=== PATIENT | female | born 1935 | race Hispanic/Latino ===

== ENCOUNTER 2017-09-25 11:15 | Inpatient (IN) | payer MEDICARE, OTHER ==
[2017-09-25 11:15] VITALS: PULSE 121
--- NOTE | 2017-09-25 12:16 | ED PDOC ---
HPI: General Adult Time Seen by Provider: 09/25/17 11:37 Chief Complaint (Nursing): Cough, Cold, Congestion Chief Complaint (Provider): shortness of breath with cough History Per: Patient History/Exam Limitations: no limitations Onset/Duration Of Symptoms: Days (7 days ago) Current Symptoms Are (Timing): Still Present Additional Complaint(s): 81 yo female with a history of having a pacemaker and Diabetes, presents to the ED complaining of shortness of breath, cough, and multiple episodes on-going, watery diarrhea, onset of 7 days ago. Patient also reports of worsened shortness of breath with exertion, decreased oral intake, feeling thirsty, but denies chest pain, fever, or abdominal pain. Past Medical History Reviewed: Historical Data Vital Signs: Last Vital Signs Temp 99.1 F 09/25/17 11:50 Pulse 61 09/25/17 11:50 Resp 23 09/25/17 11:50 BP 160/75 H 09/25/17 11:50 Pulse Ox 94 L 09/25/17 15:01 - Medical History PMH: Cardia Arrhythmia, Diabetes, HTN, Hypercholesterolemia - Surgical History Surgical History: Pacemaker Other surgeries: right hip and left knee surgery - Family History Family History: States: Unknown Family Hx - Social History Current smoker - smoking cessation education provided: No Ex-Smoker (has not smoked in the last 12 months): No Alcohol: None Drugs: Denies - Home Medications Home Medications: Ambulatory Orders Medication Instructions Recorded Atorvastatin [Lipitor] 10 mg PO DAILY 05/31/14 Carvedilol [Carvedilol] 12.5 mg PO BID 05/31/14 Ergocalciferol (Vitamin D2) 1 tab PO DAILY 05/31/14 [Ergocalciferol] Furosemide [Lasix] 20 mg PO DAILY 05/31/14 Sertraline Hydrochloride 25 mg PO DAILY 05/31/14 [Sertraline Hydrochloride] Sitagliptin Phosphate [Januvia] 25 mg PO DAILY 05/31/14 Warfarin Sodium 6 mg PO DAILY 05/31/14 Multivit-Min/FA/Lycopen/Lutein 1 tab PO DAILY 10/17/16 [Centrum Silver Tablet] Mv-Min/FA/Vit K/Lycop/Lut/Zeax 1 tab PO DAILY 10/17/16 [Ocuvite Eye + Multi Tablet] Carvedilol [Coreg] 25 mg PO BID #60 tab 10/21/16 Ciprofloxacin [Cipro] 500 mg PO DAILY #2 tab 10/21/16 Furosemide [Lasix] 40 mg PO DAILY tab 10/21/16 Insulin Detemir [Levemir] 22 units SC HS vial 10/21/16 - Allergies Allergies/Adverse Reactions: Allergies Allergy/AdvReac Type Severity Reaction Status Date / Time No Known Allergies Allergy Verified 10/17/16 23:12 Review of Systems Constitutional: Positive for: Chills, Weakness (fatigue), Other (decreased oral intake, feeling thristy). Negative for: Fever Cardiovascular: Negative for: Chest Pain Respiratory: Positive for: Cough, Shortness of Breath, SOB with Exertion Gastrointestinal: Positive for: Diarrhea. Negative for: Nausea, Vomiting, Abdominal Pain Physical Exam - Reviewed Nursing Documentation Reviewed: Yes Vital Signs Reviewed: Yes - Physical Exam Appears: Positive for: Non-toxic, No Acute Distress. Negative for: Well (obese) Head Exam: Positive for: ATRAUMATIC, NORMAL INSPECTION, NORMOCEPHALIC Skin: Positive for: Normal Color, Warm, DRY Eye Exam: Positive for: EOMI, Normal appearance, PERRL ENT: Positive for: Other (mucous membranes are pink and moderrately dry) Neck: Positive for: Normal Cardiovascular/Chest: Positive for: Regular Rate, Rhythm. Negative for: Murmur Respiratory: Positive for: Decreased Breath Sounds (bilateral bases). Negative for: Rales Gastrointestinal/Abdominal: Positive for: Normal Exam, Soft. Negative for: Tenderness Back: Positive for: Normal Inspection Extremity: Positive for: Normal ROM. Negative for: Pedal Edema, Deformity, Other (peripheral edema) Neurologic/Psych: Positive for: Alert, Oriented. Negative for: Motor/Sensory Deficits - Laboratory Results Result Diagrams: 09/25/17 12:00 09/25/17 12:00 - ECG O2 Sat by Pulse Oximetry: 94 (RA) Pulse Ox Interpretation: Normal Medical Decision Making Medical Decision Making: Time: --11:45 Impression: --Diarrhea and shortness of breath with cough, differential: infectious process Plan: --Labs --Troponin I --Chest Portable X-ray --Blood culture --Iv Insertion --O2 via nasal cannula Reassess --15:50 FINDINGS: Chest X-ray LUNGS: No active pulmonary disease. PLEURA: No significant pleural effusion identified, no pneumothorax apparent. CARDIOVASCULAR: Normal. OSSEOUS STRUCTURES: No significant abnormalities. VISUALIZED UPPER ABDOMEN: Normal. OTHER FINDINGS: None. IMPRESSION: No active disease. Scribe Attestation: Documented by Erich Wooten acting as a scribe for Yuval Rousseau DO. Provider Attestation: All medical record entries made by the Scribe were at my direction and personally dictated by me. I have reviewed the chart and agree that the record accurately reflects my personal performance of the history, physical exam, medical decision making, and the department course for this patient. I have also personally directed, reviewed, and agree with the discharge instructions and disposition. Disposition - Clinical Impression Clinical Impression: CHF (congestive heart failure), Diarrhea - Patient ED Disposition Is Patient to be Admitted: Yes - Disposition Disposition Time: 15:00 Condition: STABLE
[2017-09-25 13:32] LABS: BASO % 0.3 % (0.0-2.0); HEMOGLOBIN 11.6 g/dL (12.0-16.0); LYMPH # 0.7 K/uL (1.0-4.3); LYMPH % 15.3 % (20.0-40.0); MEAN CORPUSCULAR HEMOGLOBIN 30.1 pg (27.0-31.0); MEAN CORPUSCULAR HGB CONC 32.7 g/dL (33.0-37.0); MEAN PLATELET VOLUME 9.2 fl (7.2-11.7); MONO # 0.7 K/uL (0.0-0.8); MONO % 14.3 % (0.0-10.0); NEUT # 3.2 K/uL (1.8-7.0); NEUT % 69.1 % (50.0-75.0); NRBC % 0.2 % (0.0-0.0); RBC 3.84 Mil/uL (3.80-5.20); WHITE BLOOD COUNT 4.6 K/uL (4.8-10.8)
[2017-09-25 13:45] LABS: ALB/GLOB RATIO 1.2 (1.0-2.1); ALBUMIN 3.8 g/dL (3.5-5.0); CALCIUM 8.7 mg/dL (8.4-10.2)
[2017-09-25 13:56] LABS: TROPONIN I 0.021 ng/mL (0.00-0.120)
[2017-09-25] MEDS ORDERED: Sodium Chloride 0.9% 250 ML IV SCH (14:00)
[2017-09-25 14:39] LABS: ABG ALLEN TEST YES; ARTERIAL BLOOD GAS HEMOGLOBIN 11.5 g/dL (11.7-17.4); ARTERIAL BLOOD GAS O2 CAPACITY 15.3 mL/dL (16-24); ARTERIAL BLOOD GAS O2 CONTENT 14.7 ML/dL (15-23); ARTERIAL BLOOD GAS O2 SAT 95.9 % (95-98); ARTERIAL BLOOD GAS PCO2 51 mm/Hg (35-45); ARTERIAL BLOOD GAS PH 7.38 (7.35-7.45); ARTERIAL BLOOD GAS PO2 50 mm/Hg (80-100); ARTERIAL BLOOD GAS TCO2 31.8 mmol/L (22-28)
[2017-09-25] MEDS ORDERED: Nitroglycerin 2% Ointment Foilpak UD TOP STA (14:58)
--- NOTE | 2017-09-25 15:52 | RAD ---
HISTORY: sob COMPARISON: No prior. FINDINGS: LUNGS: No active pulmonary disease. PLEURA: No significant pleural effusion identified, no pneumothorax apparent. CARDIOVASCULAR: Normal. OSSEOUS STRUCTURES: No significant abnormalities. VISUALIZED UPPER ABDOMEN: Normal. OTHER FINDINGS: None. IMPRESSION: No active disease.
[2017-09-25] MEDS ORDERED: Glucagon Recombinant 1 mg Inj IM PRN (15:55)
[2017-09-25] MEDS ORDERED: Dextrose 50% SYRINGE Inj (50 ml) IV PRN (15:55)
--- NOTE | 2017-09-25 15:58 | CP.PCM.HP ---
History of Present Illness - History of Present Illness History of Present Illness: 81 y/o F with PMHx of Systolic CHF with LVEF 20-25 % ( on last Echo done on 10/20), Pacemaker ( placed 10 years ago), Diabetes, HTn, A fib on coumadin, CKD presents to ED c/o body aches, headaches, dry cough, and sometimes wet cough associated with white sputum production, nasal congestion, runny nose, chills, watery eyes since last (3 days ago). Patient reports an unchanged baseline SOB. She gets SOB when walking few steps, however she does not walk to much because her chronic musculoskeletal conditions and surgeries. Denies Fevers , hemoptisis, frothy sputum, chest pain, increase in baseline SOB. Also patient is complaining of a lot of episodes of watery nonbloody diarrheas for 2 days (started on Tuesday), associated with diffuse abd pain for one day ( Tuesday), sha has had 3 episodes of diarrheas today. Denies N/V, abdominal pain at this eval, blood in stools, or urinary symptoms. History taken from patient, her son at bedside, and old records in [facility]. As per patient she is very adherent to medical treatment. She states that she took all her morning meds including coumadin. PMD: Dr. Marte. Enamel Dipper: Dr. Farias PMHx: as HPI Pacemaker last checked in September/2017 as per patient and family. Medications: coumadin 6mg, carvedilol 25 mg BID, atorvastatin 10mg, lasix 40 mg , januvia 25mg, Levemir 22u, zoloft 50 mg, ergocalciferol 50,000 unit weekly, Allergies : none Surgical hx: pacemaker placement 10 years ago, Right hip replacement, left knee replacement Social: denies smoking, EtOH, drugs. lives alone, uses walker to ambulate, and needs assistance. ED course: NS 250 ml/hr once, Lasix 40 mg IV once, Nitro 2% TOPonce Labs, ABG, CXR Present on Admission - Present on Admission Any Indicators Present on Admission: No History of DVT/PE: No History of Uncontrolled Diabetes: No Urinary Catheter: No Decubitus Ulcer Present: No Review of Systems - Review of Systems All systems: reviewed and no additional remarkable complaints except (HPI) Past Patient History - Past Social History Alcohol: None Drugs: Denies - CARDIAC Hx Cardia Arrhythmia: Yes Hx Hypercholesterolemia: Yes Hx Hypertension: Yes Hx Pacemaker: Yes - ENDOCRINE/METABOLIC Hx Endocrine Disorders: Yes Hx Diabetes Mellitus Type 2: Yes - MUSCULOSKELETAL/RHEUMATOLOGICAL Hx Falls: No - PSYCHIATRIC Hx Substance Use: No - SURGICAL HISTORY Hx Joint Replacement: Yes (right hip and left knee) - ANESTHESIA Hx Anesthesia: Yes Hx Anesthesia Reactions: No Hx Malignant Hyperthermia: No Meds Allergies/Adverse Reactions: Allergies Allergy/AdvReac Type Severity Reaction Status Date / Time No Known Allergies Allergy Verified 10/17/16 23:12 Physical Exam - Constitutional Appears: No Acute Distress - Eye Exam Eye Exam: Normal appearance Pupil Exam: PERRL - ENT Exam ENT Exam: Mucous Membranes Moist - Respiratory Exam Respiratory Exam: Wheezes (diffuse and bilateral), NORMAL BREATHING PATTERN. absent: Rales, Rhonchi - Cardiovascular Exam Cardiovascular Exam: REGULAR RHYTHM, +S1, +S2 - GI/Abdominal Exam GI & Abdominal Exam: Normal Bowel Sounds, Soft. absent: Distended, Guarding, Rebound, Rigid, Tenderness Additional comments: Obese abdomen - Extremities Exam Extremities exam: Positive for: normal inspection. Negative for: calf tenderness, pedal edema - Neurological Exam Neurological exam: Alert, Oriented x3 - Skin Skin Exam: Dry, Intact, Normal Color Results - Vital Signs Recent Vital Signs: Last Vital Signs Temp 99.1 F 09/25/17 11:50 Pulse 61 09/25/17 11:50 Resp 23 09/25/17 11:50 BP 160/75 H 09/25/17 11:50 Pulse Ox 94 L 09/25/17 15:01 - Labs Result Diagrams: 09/25/17 12:00 09/25/17 12:00 Labs: Laboratory Results - last 24 hr 09/25/17 09/25/17 09/25/17 12:00 12:00 12:00 WBC 4.6 L RBC 3.84 Hgb 11.6 L Hct 35.3 MCV 92.0 MCH 30.1 MCHC 32.7 L RDW 14.0 Plt Count 139 MPV 9.2 Neut % (Auto) 69.1 Lymph % (Auto) 15.3 L [place] % (Auto) 14.3 H Eos % (Auto) 1.0 Baso % (Auto) 0.3 Neut # (Auto) 3.2 Lymph # (Auto) 0.7 L [place] # (Auto) 0.7 Eos # (Auto) 0.0 Baso # (Auto) 0.0 pCO2 pO2 HCO3 ABG pH ABG Total CO2 ABG O2 Saturation ABG O2 Content ABG Base Excess ABG Hemoglobin ABG Carboxyhemoglobin POC ABG HHb (Measured) ABG Methemoglobin ABG O2 Capacity Ammon Test A-a O2 Difference Hgb O2 Saturation FiO2 Blood Gas Comments Crit Value Read Back Sodium 137 Potassium 4.7 Chloride 95 L Carbon Dioxide 29 Anion Gap 18 BUN 42 H Creatinine 1.6 H Est GFR ( Amer) 37 Est GFR (Non-Af Amer) 31 POC Glucose (mg/dL) 219 H Random Glucose 217 H Calcium 8.7 Total Bilirubin 0.5 AST 28 ALT 29 Alkaline Phosphatase 65 Troponin I 0.0210 NT-Pro-B Natriuret Pep 2490 H Total Protein 7.0 Albumin 3.8 Globulin 3.2 Albumin/Globulin Ratio 1.2 09/25/17 14:31 WBC RBC Hgb Hct MCV MCH MCHC RDW Plt Count MPV Neut % (Auto) Lymph % (Auto) [place] % (Auto) Eos % (Auto) Baso % (Auto) Neut # (Auto) Lymph # (Auto) [place] # (Auto) Eos # (Auto) Baso # (Auto) pCO2 51 H pO2 50 L HCO3 28.0 ABG pH 7.38 ABG Total CO2 31.8 H ABG O2 Saturation 95.9 ABG O2 Content 14.7 L ABG Base Excess 4.1 H ABG Hemoglobin 11.5 L ABG Carboxyhemoglobin 2.7 H POC ABG HHb (Measured) 3.9 ABG Methemoglobin 2.5 ABG O2 Capacity 15.3 L Ammon Test Yes A-a O2 Difference 100.0 Hgb O2 Saturation 90.9 L FiO2 30.0 Blood Gas Comments 21% pt was on room air not 30% Crit Value Read Back N Sodium Potassium Chloride Carbon Dioxide Anion Gap BUN Creatinine Est GFR ( Amer) Est GFR (Non-Af Amer) POC Glucose (mg/dL) Random Glucose Calcium Total Bilirubin AST ALT Alkaline Phosphatase Troponin I NT-Pro-B Natriuret Pep Total Protein Albumin Globulin Albumin/Globulin Ratio Assessment & Plan - Assessment and Plan (Free Text) Assessment: 81 y/o F with PMHx of Systolic CHF , Pacemaker, Diabetes, HTn, A fib presenting with SOB and Diarrheas. Plan: Short of Breath -Telemetry unit -Possible 2/2 acute URI, but Cardiac etiology can not be r/o because patient has a significant cardiac history -Diffuse wheezing at PExam -Cont Cardiac monitoring -NC at 2 LPM -Pulse oxymeter monitoring -measure weight daily -I & O daily -ABG: mild elevated PCO2/51, normal PH, normal HCO3 -CXR on admission was unremarkable. Official report showed no active disease -Give Duoneb once, and re-assess -s/p Lasix 40 mg IV once, Nitro 2 % TOP once Upper Respiratory infection -Acute,x 3 days, afebrile -most likely viral etiology -no evidence of SIRS -no needed antibiotics at this time -will test for Influenza A/B, if positive start tamiflu renal dose -Mucinex DM -Acetaminophen 650 mg PO PRN ( normal AST/ALT on admission) -f/u respiratory status Watery Diarrheas -acute, 2 days -afebrile, nonbloody -most likely viral etiology -no recent antibiotic treatment -fecal leukocytes -will consider C-diff ( no fevers, no abd pain now, no leukocytosis) -f/u for resolution, improvement or worsening Systolic CHF -does not seem to be in exacerbation -no evidence of significant pleural effusion -c/w Home dose of lasix. Furosemide 40 mg PO QD -c/w Carvedilol 25 mg PO BID -heart healthy diet -pro-BNP on admission 2490 ( could be pt's baseline) -measure weight daily -I & O daily -Echo on 10/20/16 reported as severely reduced LVEF 20-25 %, global hypokinesis -call Cardiology if needed -Dr. Ashish Farias is patient Enamel Dipper H/O A Fib -Paced rhythm -Controlled -c/w Carvedilol -On Coumadin 6 mg as per patient and family report -Also as per old records takes coumadin 6 mg /Daily -F/u INR done in ER -Resume Coumadin if INR is in therapeutic levels for afib, 2-3 -repeat INR before next dose Diabetes Mellitus type 2 -c/w Accuchek -resume home Januvia 25 mg QD ( renal adjusted) -resume Levemir 22 units at bedtime ( as per pt report and old records) -insulin Lispro before meals per protocol. Low dose for now -Hypoglycemic protocol -Diabetic diet CKD stage 3 -On ergocalciferol 50,000 unit weekly -normal potassium, stable BUN/Cr -f/u BMP in AM Diet -heart healthy and diabetic DVT prophylaxis -On anticoagulant Coumadin - Date & Time Date: 09/25/17 Time: 16:00
[2017-09-25] MEDS ORDERED: Nitroglycerin 2% Ointment Foilpak UD TOP ONE (16:39)
[2017-09-25] MEDS ORDERED: Albuterol-Ipratrop 3 mg / 0.5 (3 ml) UD INH ONE (16:58)
[2017-09-25 17:00] LABS: PROTHROMBIN TIME 23.9 Seconds (9.8-13.1)
[2017-09-25 17:01] LABS: INR 2.1 (0.9-1.2); PARTIAL THROMBOPLASTIN TIME 43.1 Seconds (25.6-37.1)
[2017-09-25] MEDS: Oseltamivir 6 MG/ML PO SCH (17:36)
[2017-09-25] MEDS ORDERED: Albuterol-Ipratrop 3 mg / 0.5 (3 ml) UD ONE (17:39)
[2017-09-25] MEDS: guaiFENesin-DM 600-30 mg ER Tab PO SCH (18:17)
[2017-09-25 18:58] LABS: URINE APPEARANCE TURBID (CLEAR); URINE BILIRUBIN NEGATIVE (NEGATIVE); URINE BLOOD NEGATIVE (NEGATIVE); URINE COLOR YELLOW (YELLOW); URINE GLUCOSE (UA) NEG (Normal); URINE LEUKOCYTE ESTERASE MOD Leu/uL (Negative); URINE NITRATE NEGATIVE (NEGATIVE); URINE PROTEIN 30 mg/dL (NEGATIVE); URINE UROBILINOGEN 0.2-1.0 mg/dL (0.2-1.0)
[2017-09-25] MEDS: Insulin Detemir 100 Units/ml Inj SC SCH (23:23)
[2017-09-26] MEDS ORDERED: Albuterol-Ipratrop 3 mg / 0.5 (3 ml) UD INH STA (06:06)
[2017-09-26 06:07] LABS: CALCIUM 8.7 mg/dL (8.4-10.2)
[2017-09-26 06:14] LABS: BASO % 0.6 % (0.0-2.0); EOS % 1.4 % (0.0-4.0); HEMOGLOBIN 11.5 g/dL (12.0-16.0); LYMPH # 0.8 K/uL (1.0-4.3); LYMPH % 25.7 % (20.0-40.0); MEAN CELL VOLUME 92.4 fl (81.0-99.0); MEAN CORPUSCULAR HEMOGLOBIN 29.9 pg (27.0-31.0); MEAN CORPUSCULAR HGB CONC 32.4 g/dL (33.0-37.0); MEAN PLATELET VOLUME 8.9 fl (7.2-11.7); MONO # 0.6 K/uL (0.0-0.8); MONO % 19.5 % (0.0-10.0); NEUT # 1.7 K/uL (1.8-7.0); NEUT % 52.8 % (50.0-75.0); NRBC % 0.2 % (0.0-0.0); RBC 3.83 Mil/uL (3.80-5.20); WHITE BLOOD COUNT 3.2 K/uL (4.8-10.8)
[2017-09-26] MEDS ORDERED: Influenza Vaccine 18yr & older 0.5 ML/45 MCG SYR IM ONE (06:32)
[2017-09-26] MEDS ORDERED: Pneumococcal 23-Valent Vaccine IM ONE (06:32)
[2017-09-26 06:54] LABS: INR 2.5 (0.9-1.2); PROTHROMBIN TIME 28.3 Seconds (9.8-13.1)
--- NOTE | 2017-09-26 07:04 | CP.PCM.PN ---
<Timur Galvez - Last Filed: 09/26/17 13:13> Subjective - Date & Time of Evaluation Date of Evaluation: 09/26/17 Time of Evaluation: 07:04 - Subjective Subjective: The patient was seen and examined bedside this morning. There are no acute events overnight. The patient is laying in bed, NAD. The patient is feeling a little better and breathing better. The patient reports diarrhea that has been going on for 2 days. Patient has no other complaints. Objective - Vital Signs/Intake and Output Vital Signs (last 24 hours): Temp Pulse Resp BP Pulse Ox 98.8 F 60 16 135/66 99 09/26/17 05:40 09/26/17 05:40 09/26/17 05:40 09/26/17 05:40 09/26/17 05:40 - Medications Medications: Current Medications Acetaminophen (Tylenol 325mg Tab) 650 mg PO Q6 PRN PRN Reason: Headache Albuterol/Ipratropium (Duoneb 3 Mg/0.5 Mg (3 Ml) Ud) 3 ml INH RQ6 [facility] Atorvastatin Calcium (Lipitor) 10 mg PO HS [facility] Carvedilol (Coreg) 25 mg PO BID@0900,2100 [facility] Last Admin: 09/25/17 23:22 Dose: Not Given Dextrose (Dextrose 50% Inj) 0 ml IV STAT PRN; Protocol PRN Reason: Hypoglycemia Protocol Dextrose (Glutose 15) 0 gm PO ONCE PRN; Protocol PRN Reason: Hypoglycemia Protocol Furosemide (Lasix) 40 mg PO DAILY [facility] Glucagon (Glucagen Diagnostic Kit) 0 mg IM STAT PRN; Protocol PRN Reason: Hypoglycemia Protocol Guaifenesin/Dextromethorphan (Mucinex-Dm 600-30 Mg) 1 tab PO BID [facility] Last Admin: 09/25/17 18:17 Dose: 1 tab Sodium Chloride (Sodium Chloride 0.9%) 250 mls @ 250 mls/hr IV .Q1H [facility] Stop: 09/26/17 13:51 Last Admin: 09/25/17 14:32 Dose: 250 mls/hr Insulin Detemir (Levemir) 22 units SC HS [facility] Last Admin: 09/25/17 23:23 Dose: 22 units Insulin Human Lispro (Humalog) 0 units SC AC [facility] PRN Reason: Protocol Oseltamivir Phosphate (Tamiflu Susp) 30 mg PO DAILY [facility] PRN Reason: Protocol Last Admin: 09/25/17 17:36 Dose: 30 mg Sertraline HCl (Zoloft) 50 mg PO DAILY [facility] Sitagliptin Phosphate (Januvia) 25 mg PO DAILY [facility] Warfarin Sodium (Coumadin) 6 mg PO QD5 [facility] PRN Reason: Protocol Stop: 09/26/17 17:01 - Labs Labs: 09/26/17 04:25 09/26/17 04:25 PT 28.3 Seconds (9.8-13.1) H 09/26/17 04:25 INR 2.5 (0.9-1.2) H 09/26/17 04:25 APTT 43.1 Seconds (25.6-37.1) H 09/25/17 16:35 - Constitutional Appears: No Acute Distress - Head Exam Head Exam: ATRAUMATIC, NORMAL INSPECTION, NORMOCEPHALIC - Eye Exam Eye Exam: Normal appearance - ENT Exam ENT Exam: Mucous Membranes Moist - Respiratory Exam Respiratory Exam: Wheezes. absent: Decreased Breath Sounds, Rales, Rhonchi Additional comments: mild scattered wheeze, patient able to speak in complete sentences, no respiratory distress - Cardiovascular Exam Cardiovascular Exam: Murmur. absent: Tachycardia Additional comments: systolic murmur - GI/Abdominal Exam GI & Abdominal Exam: Soft, Normal Bowel Sounds. absent: Distended, Tenderness - Extremities Exam Extremities Exam: absent: Calf Tenderness, Pedal Edema, Tenderness Additional comments: varicose veins bilaterally - Neurological Exam Neurological Exam: Alert, Awake, Oriented x3 - Skin Skin Exam: Dry, Intact, Normal Color, Warm Assessment and Plan - Assessment and Plan (Free Text) Assessment: 81 y/o woman w/ pmh of chronic reduced EF CHF, pacemaker, IDDM2, HTN, and atrial fibrillation presenting with SOB and diarrhea. Plan: Short of Breath - Possible 2/2 acute URI, but Cardiac etiology can not be r/o because patient has a significant cardiac history - currently scattered wheeze on exam - Cont Cardiac monitoring - NC at 2 L prn - Pulse oxymeter monitoring - measure weight daily - I & O daily - ABG: mild elevated PCO2/51, normal PH, normal HCO3 - CXR on admission was unremarkable. Official report showed no active disease - Give Duoneb once, and re-assess - s/p Lasix 40 mg IV once, Nitro 2 % TOP once Upper Respiratory infection - Acute x3 days, afebrile - most likely viral etiology - no evidence of SIRS - no needed antibiotics at this time - Influenza A/B: positive - tamiflu (renally dosed, CrCl 46): 30 mg PO BID daily - Mucinex DM - Acetaminophen 650 mg PO PRN (normal AST/ALT on admission) - f/u respiratory status Watery Diarrheas - acute, 2 days - afebrile, nonbloody - most likely viral etiology - no recent antibiotic treatment - f/u fecal leukocytes - will consider C-diff (no fevers, no abd pain now, no leukocytosis) - f/u for resolution, improvement or worsening Chronic Reduced EF CHF - does not seem to be in exacerbation - no evidence of significant pleural effusion, no LE pedal edema, no crackles on auscultation - c/w Home dose of lasix. Furosemide 20 mg PO BID - c/w Carvedilol 25 mg PO BID - heart healthy diet - pro-BNP on admission 2490 ( could be pt's baseline) - measure weight daily - I & O daily - Echo on 10/20/16 reported as severely reduced LVEF 20-25 %, global hypokinesis - cardiology consulted, Dr. Farias, recommendations appreciated H/O A Fib - Pacemaker, Paced rhythm - Controlled - c/w Carvedilol - On Coumadin 6 mg daily as per patient and family report, confirmed / Pharmacy - INR 2.5 - repeat INR before next dose Diabetes Mellitus type 2 - c/w Accuchek - resume home Januvia 25 mg QD ( renal adjusted) - resume Levemir 22 units at bedtime ( as per pt report and old records) - insulin Lispro before meals per protocol. Low dose for now - Hypoglycemic protocol - Diabetic diet CKD stage 3 - On ergocalciferol 50,000 unit weekly - normal potassium, stable BUN/Cr - f/u BMP in AM Diet -heart healthy and diabetic Prophylactic measures - DVT: On anticoagulant Coumadin 6 mg PO daily <Julien Oates - Last Filed: 09/28/17 06:58> Objective - Vital Signs/Intake and Output Vital Signs (last 24 hours): Temp Pulse Resp BP Pulse Ox 99.1 F 60 18 119/66 94 L 09/28/17 05:01 09/28/17 05:01 02/21/18 05:01 09/28/17 05:01 09/28/17 05:01 Intake and Output: 09/27/17 09/28/17 18:59 06:59 Intake Total 200 Output Total 2 Balance 198 - Medications Medications: Current Medications Acetaminophen (Tylenol 325mg Tab) 650 mg PO Q6 PRN PRN Reason: Headache Albuterol/Ipratropium (Duoneb 3 Mg/0.5 Mg (3 Ml) Ud) 3 ml INH RQ6 [facility] Last Admin: 09/28/17 01:07 Dose: 3 ml Atorvastatin Calcium (Lipitor) 10 mg PO HS [facility] Last Admin: 09/27/17 22:00 Dose: 10 mg Azithromycin (Zithromax) 250 mg PO DAILY [facility] PRN Reason: Protocol Stop: 09/30/17 09:01 Last Admin: 09/27/17 10:59 Dose: 250 mg Carvedilol (Coreg) 25 mg PO BID@0900,2100 [facility] Last Admin: 09/27/17 22:01 Dose: 25 mg Dextrose (Dextrose 50% Inj) 0 ml IV STAT PRN; Protocol PRN Reason: Hypoglycemia Protocol Dextrose (Glutose 15) 0 gm PO ONCE PRN; Protocol PRN Reason: Hypoglycemia Protocol Furosemide (Lasix) 20 mg PO BID [facility] Last Admin: 09/27/17 18:24 Dose: 20 mg Glucagon (Glucagen Diagnostic Kit) 0 mg IM STAT PRN; Protocol PRN Reason: Hypoglycemia Protocol Guaifenesin/Dextromethorphan (Mucinex-Dm 600-30 Mg) 1 tab PO BID [facility] Last Admin: 09/27/17 18:23 Dose: 1 tab Insulin Detemir (Levemir) 22 units SC [facility] Last Admin: 09/27/17 22:01 Dose: 22 units Insulin Human Lispro (Humalog) 0 units SC AC [facility] PRN Reason: Protocol Last Admin: 09/27/17 18:17 Dose: 2 unit Oseltamivir Phosphate (Tamiflu Susp) 30 mg PO BID [facility] PRN Reason: Protocol Last Admin: 09/27/17 18:22 Dose: 30 mg Sertraline HCl (Zoloft) 50 mg PO DAILY [facility] Last Admin: 09/27/17 09:25 Dose: 50 mg Sitagliptin Phosphate (Januvia) 25 mg PO DAILY [facility] Last Admin: 09/27/17 09:23 Dose: 25 mg - Labs Labs: 09/27/17 04:30 09/27/17 04:30 PT 26.0 Seconds (9.8-13.1) H 09/27/17 10:40 INR 2.3 (0.9-1.2) H 09/27/17 10:40 APTT 43.1 Seconds (25.6-37.1) H 09/25/17 16:35 Attending/Attestation - Attestation I have personally seen and examined this patient.: Yes I have fully participated in the care of the patient.: Yes I have reviewed all pertinent clinical information, including history, physical exam and plan: Yes
[2017-09-26] MEDS: Albuterol-Ipratrop 3 mg / 0.5 (3 ml) UD INH SCH ×3 (08:07→19:33)
[2017-09-26] MEDS: Insulin Lispro (humaLOG) 100 Units/ml Inj SC SCH ×3 (09:05→17:42)
[2017-09-26] MEDS: Oseltamivir 6 MG/ML PO SCH ×2 (09:05→17:38)
[2017-09-26] MEDS: guaiFENesin-DM 600-30 mg ER Tab PO SCH ×2 (09:06→17:38)
--- NOTE | 2017-09-26 11:51 | CP.PCM.CON ---
History of Present Illness - History of Present Illness History of Present Illness: This 81-year-old female well known to me for over 8 years has come into the hospital complaining of chills and a scantily productive cough. She is a elderly pathologically obese female, with diabetes mellitus, hypertension 6 sinus syndrome requiring a dual-chamber pacemaker implant in November 2009 and recurrent atrial fibrillation requiring chronic oral anticoagulation, congestive cardiac failure with severe obstructive sleep apnea as well as severe chronic venous disease of lower extremities with chronic stasis dermatitis and persistent pedal edema as well as severe osteoarthritic pains in both knees with marked inactivity as a consequence of it. Patient denies any recent worsening of her dyspnea but reports profound fatigue as well as runny nose and sense of chills though no actual fever was documented. Tests in the emergency room are positive for influenza A. Physical examination shows an elderly obese exhausted female, afebrile at this juncture with a heart rate off 74 bpm with a blood pressure of 130/74 mmHg. Her jugular venous pressure was minimally elevated and there was edema over both lower extremities with significant varicosities as well as stasis dermatitis around ankles. Pedal pulses were feeble but present. The apex was not palpable. The first and second heart sounds were normal. A long systolic murmur of mitral regurgitation was evident. The inspiratory effort was poor and there were very few rales at bases. Expiration is slightly prolonged. Abdomen was protuberant and no organomegaly was detected no free fluid was detected. Her electrocardiogram had severe baseline artifacts with presence of atrial paced and ventricular paced pattern. Review of her echocardiogram from last year shows a markedly enlarged right ventricle with abnormal septal motion as a consequence of it overall left ventricular systolic function appeared mildly depressed. There was severe tricuspid regurgitation with elevated pulmonary artery systolic pressure. The chest x-ray done in the emergency room shows evidence of mild cardiomegaly but no evidence of tomasz congestive cardiac failure. Her lab data shows a proBNP level slightly greater than 2400 pg per mL. The rest of her labs were noted. Impression: Flu syndrome in a patient with stable congestive cardiac failure which is left ventricular systolic and chronic. Obstructive sleep apnea with elevated pulmonary artery systolic pressure and depressed right ventricular systolic function. Pathological obesity with diabetes mellitus hypertension 6 sinus syndrome with recurrent atrial fibrillation status post dual chamber pacemaker implant with chronic venous disease of lower extremities, severe osteoarthritis of both knees, depression (following her 's 4 years back) The patient reports marked diurese is following IV Lasix which was given yesterday. She is stable from cardiovascular point of view at this juncture. Her pacemaker which is 91 months old will be interrogative. She is adequately anticoagulated with an INR between 2 and 3. Past Patient History - Past Medical History & Family History Past Medical History?: Yes - Past Social History Smoking Status: Never Smoked - CARDIAC Hx Atrial Fibrillation: Yes Hx Cardia Arrhythmia: Yes Hx Congestive Heart Failure: Yes Hx Hypercholesterolemia: Yes Hx Hypertension: Yes Hx Pacemaker: Yes - PULMONARY Hx Respiratory Disorders: No - NEUROLOGICAL Hx Neurological Disorder: No - HEENT Hx HEENT Problems: No - RENAL Hx Chronic Kidney Disease: Yes Hx Dialysis: No - ENDOCRINE/METABOLIC Hx Endocrine Disorders: Yes Hx Diabetes Mellitus Type 2: Yes - HEMATOLOGICAL/ONCOLOGICAL Hx Blood Disorders: No Hx AIDS: No Hx Human Immunodeficiency Virus (HIV): No - INTEGUMENTARY Hx Dermatological Problems: No - MUSCULOSKELETAL/RHEUMATOLOGICAL Hx Falls: No Hx Fractures: Yes - GASTROINTESTINAL Hx Gastrointestinal Disorders: No - GENITOURINARY/GYNECOLOGICAL Hx Genitourinary Disorders: No - PSYCHIATRIC Hx Psychophysiologic Disorder: No Hx Substance Use: No - SURGICAL HISTORY Hx Surgeries: Yes Hx Joint Replacement: Yes (right hip and left knee) - ANESTHESIA Hx Anesthesia: Yes Hx Anesthesia Reactions: No Hx Malignant Hyperthermia: No Has any member of the family had a problem w/ anesthesia?: No Meds Allergies/Adverse Reactions: Allergies Allergy/AdvReac Type Severity Reaction Status Date / Time No Known Allergies Allergy Verified 10/17/16 23:12 - Medications Medications: Current Medications Acetaminophen (Tylenol 325mg Tab) 650 mg PO Q6 PRN PRN Reason: Headache Albuterol/Ipratropium (Duoneb 3 Mg/0.5 Mg (3 Ml) Ud) 3 ml INH RQ6 [facility] Last Admin: 09/26/17 08:07 Dose: 3 ml Atorvastatin Calcium (Lipitor) 10 mg PO HS [facility] Carvedilol (Coreg) 25 mg PO BID@0900,2100 [facility] Last Admin: 09/26/17 09:06 Dose: 25 mg Dextrose (Dextrose 50% Inj) 0 ml IV STAT PRN; Protocol PRN Reason: Hypoglycemia Protocol Dextrose (Glutose 15) 0 gm PO ONCE PRN; Protocol PRN Reason: Hypoglycemia Protocol Furosemide (Lasix) 20 mg PO BID [facility] Glucagon (Glucagen Diagnostic Kit) 0 mg IM STAT PRN; Protocol PRN Reason: Hypoglycemia Protocol Guaifenesin/Dextromethorphan (Mucinex-Dm 600-30 Mg) 1 tab PO BID [facility] Last Admin: 09/26/17 09:06 Dose: 1 tab Sodium Chloride (Sodium Chloride 0.9%) 250 mls @ 250 mls/hr IV .Q1H [facility] Stop: 09/26/17 13:51 Last Admin: 09/25/17 14:32 Dose: 250 mls/hr Insulin Detemir (Levemir) 22 units SC HS [facility] Last Admin: 09/25/17 23:23 Dose: 22 units Insulin Human Lispro (Humalog) 0 units SC AC [facility] PRN Reason: Protocol Last Admin: 09/26/17 09:05 Dose: Not Given Oseltamivir Phosphate (Tamiflu Susp) 30 mg PO DAILY [facility] PRN Reason: Protocol Last Admin: 09/26/17 09:05 Dose: 30 mg Sertraline HCl (Zoloft) 50 mg PO DAILY [facility] Last Admin: 09/26/17 09:05 Dose: 50 mg Sitagliptin Phosphate (Januvia) 25 mg PO DAILY [facility] Last Admin: 09/26/17 09:07 Dose: 25 mg Warfarin Sodium (Coumadin) 6 mg PO QD5 [facility] PRN Reason: Protocol Stop: 09/26/17 17:01 Results - Vital Signs Recent Vital Signs: Last Vital Signs Temp 99.3 F 09/26/17 08:00 Pulse 60 09/26/17 09:06 Resp 18 09/26/17 08:00 BP 123/63 09/26/17 09:06 Pulse Ox 98 09/26/17 08:00 - Labs Result Diagrams: 09/26/17 04:25 09/26/17 04:25 Labs: Laboratory Results - last 24 hr 09/25/17 09/25/17 09/25/17 12:00 12:00 12:00 WBC 4.6 L RBC 3.84 Hgb 11.6 L Hct 35.3 MCV 92.0 MCH 30.1 MCHC 32.7 L RDW 14.0 Plt Count 139 MPV 9.2 Neut % (Auto) 69.1 Lymph % (Auto) 15.3 L Liberty % (Auto) 14.3 H Eos % (Auto) 1.0 Baso % (Auto) 0.3 Neut # (Auto) 3.2 Lymph # (Auto) 0.7 L [place] # (Auto) 0.7 Eos # (Auto) 0.0 Baso # (Auto) 0.0 PT INR APTT pCO2 pO2 HCO3 ABG pH ABG Total CO2 ABG O2 Saturation ABG O2 Content ABG Base Excess ABG Hemoglobin ABG Carboxyhemoglobin POC ABG HHb (Measured) ABG Methemoglobin ABG O2 Capacity Ammon Test A-a O2 Difference Hgb O2 Saturation FiO2 Blood Gas Comments Crit Value Read Back Sodium 137 Potassium 4.7 Chloride 95 L Carbon Dioxide 29 Anion Gap 18 BUN 42 H Creatinine 1.6 H Est GFR ( Amer) 37 Est GFR (Non-Af Amer) 31 POC Glucose (mg/dL) 219 H Random Glucose 217 H Calcium 8.7 Total Bilirubin 0.5 AST 28 ALT 29 Alkaline Phosphatase 65 Troponin I 0.0210 NT-Pro-B Natriuret Pep 2490 H Total Protein 7.0 Albumin 3.8 Globulin 3.2 Albumin/Globulin Ratio 1.2 Urine Color Urine Appearance Urine pH Ur Specific [place] Urine Protein Urine Glucose (UA) Urine Ketones Urine Blood Urine Nitrate Urine Bilirubin Urine Urobilinogen Ur Leukocyte Esterase Influenza Typ A,B (EIA) 09/25/17 09/25/17 09/25/17 14:31 16:35 16:35 WBC RBC Hgb Hct MCV MCH MCHC RDW Plt Count MPV Neut % (Auto) Lymph % (Auto) Liberty % (Auto) Eos % (Auto) Baso % (Auto) Neut # (Auto) Lymph # (Auto) Liberty # (Auto) Eos # (Auto) Baso # (Auto) PT 23.9 H INR 2.1 H APTT 43.1 H pCO2 51 H pO2 50 L HCO3 28.0 ABG pH 7.38 ABG Total CO2 31.8 H ABG O2 Saturation 95.9 ABG O2 Content 14.7 L ABG Base Excess 4.1 H ABG Hemoglobin 11.5 L ABG Carboxyhemoglobin 2.7 H POC ABG HHb (Measured) 3.9 ABG Methemoglobin 2.5 ABG O2 Capacity 15.3 L Ammon Test Yes A-a O2 Difference 100.0 Hgb O2 Saturation 90.9 L FiO2 30.0 Blood Gas Comments 21% pt was on room air not 30% Crit Value Read Back N Sodium Potassium Chloride Carbon Dioxide Anion Gap BUN Creatinine Est GFR ( Amer) Est GFR (Non-Af Amer) POC Glucose (mg/dL) Random Glucose Calcium Total Bilirubin AST ALT Alkaline Phosphatase Troponin I NT-Pro-B Natriuret Pep Total Protein Albumin Globulin Albumin/Globulin Ratio Urine Color Urine Appearance Urine pH Ur Specific [place] Urine Protein Urine Glucose (UA) Urine Ketones Urine Blood Urine Nitrate Urine Bilirubin Urine Urobilinogen Ur Leukocyte Esterase Influenza Typ A,B (EIA) Pos for influenza a H 09/25/17 09/25/17 09/25/17 16:45 18:30 22:17 WBC RBC Hgb Hct MCV MCH MCHC RDW Plt Count MPV Neut % (Auto) Lymph % (Auto) Liberty % (Auto) Eos % (Auto) Baso % (Auto) Neut # (Auto) Lymph # (Auto) Liberty # (Auto) Eos # (Auto) Baso # (Auto) PT INR APTT pCO2 pO2 HCO3 ABG pH ABG Total CO2 ABG O2 Saturation ABG O2 Content ABG Base Excess ABG Hemoglobin ABG Carboxyhemoglobin POC ABG HHb (Measured) ABG Methemoglobin ABG O2 Capacity Ammon Test A-a O2 Difference Hgb O2 Saturation FiO2 Blood Gas Comments Crit Value Read Back Sodium Potassium Chloride Carbon Dioxide Anion Gap BUN Creatinine Est GFR ( Amer) Est GFR (Non-Af Amer) POC Glucose (mg/dL) 191 H 150 H Random Glucose Calcium Total Bilirubin AST ALT Alkaline Phosphatase Troponin I NT-Pro-B Natriuret Pep Total Protein Albumin Globulin Albumin/Globulin Ratio Urine Color Yellow Urine Appearance Turbid Urine pH 8.0 Ur Specific [place] 1.012 Urine Protein 30 Urine Glucose (UA) Neg Urine Ketones Negative Urine Blood Negative Urine Nitrate Negative Urine Bilirubin Negative Urine Urobilinogen 0.2-1.0 Ur Leukocyte Esterase Mod Influenza Typ A,B (EIA) 09/26/17 09/26/17 09/26/17 04:25 04:25 04:25 WBC 3.2 L RBC 3.83 Hgb 11.5 L Hct 35.4 MCV 92.4 MCH 29.9 MCHC 32.4 L RDW 14.0 Plt Count 130 MPV 8.9 Neut % (Auto) 52.8 Lymph % (Auto) 25.7 Liberty % (Auto) 19.5 H Eos % (Auto) 1.4 Baso % (Auto) 0.6 Neut # (Auto) 1.7 L Lymph # (Auto) 0.8 L Liberty # (Auto) 0.6 Eos # (Auto) 0.0 Baso # (Auto) 0.0 PT 28.3 H INR 2.5 H APTT pCO2 pO2 HCO3 ABG pH ABG Total CO2 ABG O2 Saturation ABG O2 Content ABG Base Excess ABG Hemoglobin ABG Carboxyhemoglobin POC ABG HHb (Measured) ABG Methemoglobin ABG O2 Capacity Ammon Test A-a O2 Difference Hgb O2 Saturation FiO2 Blood Gas Comments Crit Value Read Back Sodium 140 Potassium 3.8 Chloride 98 Carbon Dioxide 32 H Anion Gap 14 BUN 39 H Creatinine 1.5 H Est GFR ( Amer) 40 Est GFR (Non-Af Amer) 33 POC Glucose (mg/dL) Random Glucose 112 H Calcium 8.7 Total Bilirubin AST ALT Alkaline Phosphatase Troponin I NT-Pro-B Natriuret Pep Total Protein Albumin Globulin Albumin/Globulin Ratio Urine Color Urine Appearance Urine pH Ur Specific [place] Urine Protein Urine Glucose (UA) Urine Ketones Urine Blood Urine Nitrate Urine Bilirubin Urine Urobilinogen Ur Leukocyte Esterase Influenza Typ A,B (EIA) 09/26/17 09/26/17 05:46 11:28 WBC RBC Hgb Hct MCV MCH MCHC RDW Plt Count MPV Neut % (Auto) Lymph % (Auto) Liberty % (Auto) Eos % (Auto) Baso % (Auto) Neut # (Auto) Lymph # (Auto) Liberty # (Auto) Eos # (Auto) Baso # (Auto) PT INR APTT pCO2 pO2 HCO3 ABG pH ABG Total CO2 ABG O2 Saturation ABG O2 Content ABG Base Excess ABG Hemoglobin ABG Carboxyhemoglobin POC ABG HHb (Measured) ABG Methemoglobin ABG O2 Capacity Ammon Test A-a O2 Difference Hgb O2 Saturation FiO2 Blood Gas Comments Crit Value Read Back Sodium Potassium Chloride Carbon Dioxide Anion Gap BUN Creatinine Est GFR ( Amer) Est GFR (Non-Af Amer) POC Glucose (mg/dL) 92 136 H Random Glucose Calcium Total Bilirubin AST ALT Alkaline Phosphatase Troponin I NT-Pro-B Natriuret Pep Total Protein Albumin Globulin Albumin/Globulin Ratio Urine Color Urine Appearance Urine pH Ur Specific [place] Urine Protein Urine Glucose (UA) Urine Ketones Urine Blood Urine Nitrate Urine Bilirubin Urine Urobilinogen Ur Leukocyte Esterase Influenza Typ A,B (EIA)
[2017-09-26] MEDS: Insulin Detemir 100 Units/ml Inj SC SCH (22:56)
[2017-09-27] MEDS: Albuterol-Ipratrop 3 mg / 0.5 (3 ml) UD INH SCH ×4 (01:00→19:29)
[2017-09-27 06:12] LABS: CALCIUM 8.5 mg/dL (8.4-10.2)
[2017-09-27 06:13] LABS: HEMOGLOBIN 11.5 g/dL (12.0-16.0); MEAN CELL VOLUME 91.9 fl (81.0-99.0); MEAN CORPUSCULAR HEMOGLOBIN 29.7 pg (27.0-31.0); MEAN CORPUSCULAR HGB CONC 32.3 g/dL (33.0-37.0); RBC 3.88 Mil/uL (3.80-5.20); RED CELL DISTRIBUTION WIDTH 13.9 % (11.5-14.5); WHITE BLOOD COUNT 3.9 K/uL (4.8-10.8)
--- NOTE | 2017-09-27 08:46 | CP.PCM.PN ---
Subjective - Date & Time of Evaluation Date of Evaluation: 09/27/17 Time of Evaluation: 07:10 - Subjective Subjective: The patient was seen and examined bedside this morning. There are no acute events overnight. The patient is laying in bed, NAD. The patient is feeling a little better and breathing better. The patient reports diarrhea that has been going on for 3 days. Patient has no other complaints. Objective - Vital Signs/Intake and Output Vital Signs (last 24 hours): Temp Pulse Resp BP Pulse Ox 99.8 F H 60 20 137/65 100 09/27/17 08:00 09/27/17 08:00 09/27/17 08:00 09/27/17 08:00 09/27/17 08:00 - Medications Medications: Current Medications Acetaminophen (Tylenol 325mg Tab) 650 mg PO Q6 PRN PRN Reason: Headache Albuterol/Ipratropium (Duoneb 3 Mg/0.5 Mg (3 Ml) Ud) 3 ml INH RQ6 [facility] Last Admin: 09/27/17 07:43 Dose: 3 ml Atorvastatin Calcium (Lipitor) 10 mg PO HS [facility] Last Admin: 09/26/17 22:57 Dose: 10 mg Carvedilol (Coreg) 25 mg PO BID@0900,2100 [facility] Last Admin: 09/26/17 22:53 Dose: 25 mg Dextrose (Dextrose 50% Inj) 0 ml IV STAT PRN; Protocol PRN Reason: Hypoglycemia Protocol Dextrose (Glutose 15) 0 gm PO ONCE PRN; Protocol PRN Reason: Hypoglycemia Protocol Furosemide (Lasix) 20 mg PO BID [facility] Last Admin: 09/26/17 17:40 Dose: 20 mg Glucagon (Glucagen Diagnostic Kit) 0 mg IM STAT PRN; Protocol PRN Reason: Hypoglycemia Protocol Guaifenesin/Dextromethorphan (Mucinex-Dm 600-30 Mg) 1 tab PO BID [facility] Last Admin: 09/26/17 17:38 Dose: 1 tab Insulin Detemir (Levemir) 22 units SC [facility] Last Admin: 09/26/17 22:56 Dose: 22 units Insulin Human Lispro (Humalog) 0 units SC AC [facility] PRN Reason: Protocol Last Admin: 09/26/17 17:42 Dose: 1 unit Oseltamivir Phosphate (Tamiflu Susp) 30 mg PO BID [facility] PRN Reason: Protocol Last Admin: 09/26/17 17:38 Dose: 30 mg Sertraline HCl (Zoloft) 50 mg PO DAILY [facility] Last Admin: 09/26/17 09:05 Dose: 50 mg Sitagliptin Phosphate (Januvia) 25 mg PO DAILY [facility] Last Admin: 09/26/17 09:07 Dose: 25 mg - Labs Labs: 09/27/17 04:30 09/27/17 04:30 PT 28.3 Seconds (9.8-13.1) H 09/26/17 04:25 INR 2.5 (0.9-1.2) H 09/26/17 04:25 APTT 43.1 Seconds (25.6-37.1) H 09/25/17 16:35 - Constitutional Appears: No Acute Distress - Head Exam Head Exam: ATRAUMATIC, NORMAL INSPECTION, NORMOCEPHALIC - Eye Exam Eye Exam: Normal appearance - ENT Exam ENT Exam: Mucous Membranes Moist - Respiratory Exam Respiratory Exam: Wheezes. absent: Decreased Breath Sounds, Rales, Rhonchi, Respiratory Distress Additional comments: mild scattered wheeze, patient able to speak in complete sentences, no respiratory distress - Cardiovascular Exam Cardiovascular Exam: REGULAR RHYTHM, Murmur. absent: Tachycardia Additional comments: systolic murmur - GI/Abdominal Exam GI & Abdominal Exam: Soft, Normal Bowel Sounds. absent: Distended, Tenderness - Extremities Exam Extremities Exam: absent: Calf Tenderness, Pedal Edema, Tenderness Additional comments: varicose veins bilaterally - Neurological Exam Neurological Exam: Alert, Awake, Oriented x3 - Skin Skin Exam: Dry, Intact, Normal Color, Warm Assessment and Plan - Assessment and Plan (Free Text) Assessment: 81 y/o woman w/ pmh of chronic reduced EF CHF, pacemaker, IDDM2, HTN, and atrial fibrillation presenting with SOB and diarrhea. Plan: Short of Breath - improving - Possible 2/2 acute URI, but Cardiac etiology can not be r/o because patient has a significant cardiac history - currently scattered wheeze on exam - Cont Cardiac monitoring - NC at 2 L prn - Pulse oxymeter monitoring - measure weight daily - I & O daily - ABG: mild elevated PCO2/51, normal PH, normal HCO3 - CXR on admission was unremarkable. Official report showed no active disease - Given Duoneb once - duoneb Q6h mana - s/p Lasix 40 mg IV once, Nitro 2 % TOP once Upper Respiratory infection - Acute x3 days, afebrile - most likely viral etiology - no evidence of SIRS - azithromycin 250 mg PO daily day 2 - Influenza A/B: positive - tamiflu (renally dosed, CrCl 46): 30 mg PO BID daily Day 2 - Mucinex DM - Acetaminophen 650 mg PO PRN (normal AST/ALT on admission) - f/u respiratory status Watery Diarrheas - improving - no episode of diarrhea overnight - acute, 2 days prior to admission - afebrile, nonbloody - most likely viral etiology - no recent antibiotic treatment - f/u fecal leukocytes - will consider C-diff (no fevers, no abd pain now, no leukocytosis) - f/u for resolution, improvement or worsening Chronic Reduced EF CHF - does not seem to be in exacerbation - no evidence of significant pleural effusion, no LE pedal edema, no crackles on auscultation - c/w Home dose of lasix. Furosemide 20 mg PO BID - c/w Carvedilol 25 mg PO BID - heart healthy diet - pro-BNP on admission 2490 ( could be pt's baseline) - measure weight daily - I & O daily - Echo on 10/20/16 reported as severely reduced LVEF 20-25 %, global hypokinesis - cardiology consulted, Dr. Farias, recommendations appreciated H/O A Fib - Pacemaker, Paced rhythm - Controlled - c/w Carvedilol - On Coumadin 6 mg daily as per patient and family report, confirmed w/ Pharmacy - INR 2.5 - repeat INR before next dose Diabetes Mellitus type 2 - c/w Accuchek - resume home Januvia 25 mg QD (renal adjusted) - resume Levemir 22 units at bedtime ( as per pt report and old records) - insulin Lispro before meals per protocol. Low dose for now - Hypoglycemic protocol - Diabetic diet CKD stage 3 - On ergocalciferol 50,000 unit weekly - normal potassium, stable BUN/Cr Diet - heart healthy and diabetic Prophylactic measures - DVT: On anticoagulant Coumadin 6 mg PO daily
[2017-09-27] MEDS: Insulin Lispro (humaLOG) 100 Units/ml Inj SC SCH ×3 (09:16→18:17)
[2017-09-27] MEDS: Oseltamivir 6 MG/ML PO SCH ×2 (09:19→18:22)
[2017-09-27] MEDS: guaiFENesin-DM 600-30 mg ER Tab PO SCH ×2 (09:21→18:23)
[2017-09-27 11:06] LABS: INR 2.3 (0.9-1.2)
--- NOTE | 2017-09-27 12:28 | CP.PCM.PN ---
Subjective - Date & Time of Evaluation Date of Evaluation: 09/27/17 Time of Evaluation: 11:45 - Subjective Subjective: Sitting OOB, has a persistent scantily productive cough Afebrile In a-paced, V sensed rhythm BP 134/70 mm Hg JVP flat, mild pedal oedema + (Vericosities +++) Insp effort poor but few basal rales Pacer was interrogated Functions mostly in A Paced /V sensed rhythm Few episodes of A Fib ( appropriate mode switch occured) Pt stable from cardiac point of view to go home when okayed by Pt has had sleep study in 2015 and had proven EULOGIO (Had titration study) Has not followed up with pulm MD and does not use C-PAP at home Has pulm hypertension and RV dysfunction Objective - Vital Signs/Intake and Output Vital Signs (last 24 hours): Temp Pulse Resp BP Pulse Ox 98.7 F 61 20 124/71 98 09/27/17 12:00 09/27/17 12:00 09/27/17 12:00 09/27/17 12:00 09/27/17 12:00 - Medications Medications: Current Medications Acetaminophen (Tylenol 325mg Tab) 650 mg PO Q6 PRN PRN Reason: Headache Albuterol/Ipratropium (Duoneb 3 Mg/0.5 Mg (3 Ml) Ud) 3 ml INH RQ6 [facility] Last Admin: 09/27/17 07:43 Dose: 3 ml Atorvastatin Calcium (Lipitor) 10 mg PO HS [facility] Last Admin: 09/26/17 22:57 Dose: 10 mg Azithromycin (Zithromax) 250 mg PO DAILY [facility] PRN Reason: Protocol Stop: 09/30/17 09:01 Last Admin: 09/27/17 10:59 Dose: 250 mg Carvedilol (Coreg) 25 mg PO BID@0900,2100 [facility] Last Admin: 09/27/17 09:21 Dose: 25 mg Dextrose (Dextrose 50% Inj) 0 ml IV STAT PRN; Protocol PRN Reason: Hypoglycemia Protocol Dextrose (Glutose 15) 0 gm PO ONCE PRN; Protocol PRN Reason: Hypoglycemia Protocol Furosemide (Lasix) 20 mg PO BID [facility] Last Admin: 09/27/17 10:58 Dose: 20 mg Glucagon (Glucagen Diagnostic Kit) 0 mg IM STAT PRN; Protocol PRN Reason: Hypoglycemia Protocol Guaifenesin/Dextromethorphan (Mucinex-Dm 600-30 Mg) 1 tab PO BID [facility] Last Admin: 09/27/17 09:21 Dose: 1 tab Insulin Detemir (Levemir) 22 units SC HS [facility] Last Admin: 09/26/17 22:56 Dose: 22 units Insulin Human Lispro (Humalog) 0 units SC AC [facility] PRN Reason: Protocol Last Admin: 09/27/17 09:16 Dose: Not Given Oseltamivir Phosphate (Tamiflu Susp) 30 mg PO BID [facility] PRN Reason: Protocol Last Admin: 09/27/17 09:19 Dose: 30 mg Sertraline HCl (Zoloft) 50 mg PO DAILY [facility] Last Admin: 09/27/17 09:25 Dose: 50 mg Sitagliptin Phosphate (Januvia) 25 mg PO DAILY [facility] Last Admin: 09/27/17 09:23 Dose: 25 mg Warfarin Sodium (Coumadin) 6 mg PO QD5 [facility] PRN Reason: Protocol Stop: 09/27/17 17:01 - Labs Labs: 09/27/17 04:30 09/27/17 04:30 PT 26.0 Seconds (9.8-13.1) H 09/27/17 10:40 INR 2.3 (0.9-1.2) H 09/27/17 10:40 APTT 43.1 Seconds (25.6-37.1) H 09/25/17 16:35
[2017-09-27 15:12] VITALS: BMI 43.8
[2017-09-27] MEDS: Insulin Detemir 100 Units/ml Inj SC SCH (22:01)
[2017-09-28] MEDS: Albuterol-Ipratrop 3 mg / 0.5 (3 ml) UD INH SCH ×3 (01:07→14:08)
[2017-09-28] MEDS: Insulin Lispro (humaLOG) 100 Units/ml Inj SC SCH ×3 (07:46→17:07)
--- NOTE | 2017-09-28 09:25 | CP.PCM.CON ---
History of Present Illness - History of Present Illness History of Present Illness: Asked to evaluate this 81-year-old Frisian speaking female who was admitted on with complaints of body aches, headache, dry cough and occasional white/ clear sputum production. She also suffer from nasal congestion and chills. She was diagnosed with influenza A and admitted to the hospital. She was seen in my office in 2014 at which time a sleep study was performed which revealed obstructive sleep apnea. CPAP titration was also performed with a therapeutic pressure of 9 cm arrived at. She did not follow-up and never received her CPAP equipment. She did have a pulmonary function study at that time which did not reveal any evidence of obstructive airways disease, but did reveal restrictive disease thought to be secondary to her body habitus. She has been followed by primary medical doctor and cardiology during the last interim 2-08/09 years. Past medical history: Hypertension, hyperlipidemia, type 2 diabetes mellitus, exogenous obesity, congestive cardiac failure, depression since the passing of her , vitamin D deficiency, atrial fibrillation with SA node dysfunction with permanent pacemaker implant. There is also a remote history of acute renal failure which required temporary hemodialysis. There is no history of myocardial infarction. There has been no history of pneumonia or asthma. No history of liver disease. Past surgical history includes total knee replacement on the left and a right hip arthroplasty. Family history: Cardiovascular disease. Social history: She is a never smoker but raised in a household with secondhand exposure. Ethanol intake is minimal/social only. There is no history of illicit drug use. Allergies: No known drug or seasonal allergies. Past Patient History - Past Medical History & Family History Past Medical History?: Yes - Past Social History Smoking Status: Never Smoked - CARDIAC Hx Cardiac Disorders: Yes Hx Hypercholesterolemia: Yes Hx Hypertension: Yes - PULMONARY Hx Respiratory Disorders: No - NEUROLOGICAL Hx Neurological Disorder: No - HEENT Hx HEENT Problems: No - RENAL Hx Chronic Kidney Disease: Yes Hx Dialysis: No - ENDOCRINE/METABOLIC Hx Diabetes Mellitus Type 2: Yes - HEMATOLOGICAL/ONCOLOGICAL Hx Blood Disorders: No Hx AIDS: No Hx Human Immunodeficiency Virus (HIV): No - INTEGUMENTARY Hx Dermatological Problems: No - MUSCULOSKELETAL/RHEUMATOLOGICAL Hx Falls: No Hx Fractures: Yes - GASTROINTESTINAL Hx Gastrointestinal Disorders: No - GENITOURINARY/GYNECOLOGICAL Hx Genitourinary Disorders: No - PSYCHIATRIC Hx Psychophysiologic Disorder: No Hx Substance Use: No - SURGICAL HISTORY Hx Surgeries: Yes Hx Joint Replacement: Yes (right hip and left knee) - ANESTHESIA Hx Anesthesia: Yes Hx Anesthesia Reactions: No Hx Malignant Hyperthermia: No Has any member of the family had a problem w/ anesthesia?: No Meds Home Medications: Home Medication List Medication Instructions Recorded Confirmed Type Acetaminophen [Tylenol 325mg tab] 650 mg PO Q6 PRN tab 09/28/17 Rx Albuterol/Ipratropium [Duoneb 3 3 ml INH RQ6 neb 09/28/17 Rx mg/0.5 mg (3 ml) UD] Azithromycin [Zithromax] 250 mg PO DAILY tab 09/28/17 Rx Oseltamivir Phosphate [Tamiflu] 30 mg PO BID 3 Days #6 capsule 09/28/17 Rx Oseltamivir [Tamiflu SUSP] 30 mg PO BID ml 09/28/17 Rx Allergies/Adverse Reactions: Allergies Allergy/AdvReac Type Severity Reaction Status Date / Time No Known Allergies Allergy Verified 09/28/17 19:25 - Medications Medications: Current Medications Acetaminophen (Tylenol 325mg Tab) 650 mg PO Q6 PRN PRN Reason: Headache Albuterol/Ipratropium (Duoneb 3 Mg/0.5 Mg (3 Ml) Ud) 3 ml INH RQ6 [facility] Last Admin: 09/28/17 01:07 Dose: 3 ml Atorvastatin Calcium (Lipitor) 10 mg PO HS [facility] Last Admin: 09/27/17 22:00 Dose: 10 mg Azithromycin (Zithromax) 250 mg PO DAILY [facility] PRN Reason: Protocol Stop: 09/30/17 09:01 Last Admin: 09/27/17 10:59 Dose: 250 mg Carvedilol (Coreg) 25 mg PO BID@0900,2100 [facility] Last Admin: 09/27/17 22:01 Dose: 25 mg Dextrose (Dextrose 50% Inj) 0 ml IV STAT PRN; Protocol PRN Reason: Hypoglycemia Protocol Dextrose (Glutose 15) 0 gm PO ONCE PRN; Protocol PRN Reason: Hypoglycemia Protocol Furosemide (Lasix) 20 mg PO BID [facility] Last Admin: 09/27/17 18:24 Dose: 20 mg Glucagon (Glucagen Diagnostic Kit) 0 mg IM STAT PRN; Protocol PRN Reason: Hypoglycemia Protocol Guaifenesin/Dextromethorphan (Mucinex-Dm 600-30 Mg) 1 tab PO BID [facility] Last Admin: 09/27/17 18:23 Dose: 1 tab Insulin Detemir (Levemir) 22 units SC HS [facility] Last Admin: 09/27/17 22:01 Dose: 22 units Insulin Human Lispro (Humalog) 0 units SC AC [facility] PRN Reason: Protocol Last Admin: 09/27/17 18:17 Dose: 2 unit Oseltamivir Phosphate (Tamiflu Susp) 30 mg PO BID [facility] PRN Reason: Protocol Last Admin: 09/27/17 18:22 Dose: 30 mg Sertraline HCl (Zoloft) 50 mg PO DAILY [facility] Last Admin: 09/27/17 09:25 Dose: 50 mg Sitagliptin Phosphate (Januvia) 25 mg PO DAILY [facility] Last Admin: 09/27/17 09:23 Dose: 25 mg Physical Exam - Additional Findings Additional findings: Seated in bedside chair in no acute distress. Mild flushed facies were noted. 2+ dependent edema of the lower extremities was noted. No cyanosis or clubbing. No calf tenderness or palpable venous cords. No ecchymosis or rash. Hyperpigmentation of the dermis distally was noted in both lower extremities. Pharynx was pink and mucous membranes were moist. No exudate. Nares are patent and without any bleeding or exudate. EACs are patent and TMs were opacified bilaterally. Conjunctivae were pink and there is no scleral icterus. Neck was supple trachea was midline. No neck vein distention or carotid bruit. No palpable thyroid enlargement. No palpable lymphadenopathy. Chest: No dullness to percussion. No axillary adenopathy. Lungs: Breath sounds are diminished bilaterally. No rales or wheezes were heard. No bronchial breathing or egophony. The heart sounds are distant and rhythm is regular. Abdomen is obese and nontender with normal bowel sounds. Results - Vital Signs Recent Vital Signs: Last Vital Signs Temp 98.8 F 09/28/17 08:00 Pulse 58 L 09/28/17 08:00 Resp 20 09/28/17 08:00 BP 119/66 09/28/17 08:00 Pulse Ox 97 09/28/17 08:00 - Labs Result Diagrams: 09/27/17 04:30 09/27/17 04:30 Labs: Laboratory Results - last 24 hr 09/27/17 09/27/17 09/27/17 10:40 11:39 15:53 PT 26.0 H INR 2.3 H POC Glucose (mg/dL) 189 H 235 H 09/27/17 09/28/17 21:27 05:21 PT INR POC Glucose (mg/dL) 165 H 151 H Assessment & Plan (1) Influenza A Status: Acute Priority: High (2) Exogenous obesity Status: Chronic Priority: High (3) Chronic respiratory insufficiency Assessment and Plan: Compensated hypercapnia. Status: Chronic Priority: High (4) Hypoxia Status: Acute (5) Sleep apnea in adult Assessment and Plan: Had sleep study done in 2014 followed by CPAP titration study; 9 cm water pressure therapeutic. Patient requires interim use of NPPV, either as BiPAP mask ventilation or nasal high flow. An attempt to obtain nasal CPAP for the patient should be made so that her equipment would be available when she returns home from the hospital. Continue with current medical regimen, but avoidance of sedating medications is important considering her CO2 retention. At this time it does not appear the patient requires home O2 but an overnight oximetry would be indicated. Status: Chronic - Date & Time Date: 09/28/17 Time: 09:29
[2017-09-28] MEDS: guaiFENesin-DM 600-30 mg ER Tab PO SCH ×2 (09:47→17:06)
[2017-09-28] MEDS: Oseltamivir 6 MG/ML PO SCH ×2 (09:56→17:10)
[2017-09-28] MEDS ORDERED: Ergocalciferol 400 INTLU/0.05 ML PO SCH (10:30)
--- NOTE | 2017-09-28 10:50 | CP.PCM.DIS ---
Provider - Provider Date of Admission: 09/25/17 14:59 Attending physician: Julien Oates MD Time Spent in preparation of Discharge (in minutes): 15 Diagnosis - Discharge Diagnosis (1) Influenza A Status: Acute Priority: High Hospital Course - Lab Results Lab Results: Micro Results 09/25/17 13:13 Blood Blood Culture - Preliminary NO GROWTH AFTER 48 HOURS Most Recent Lab Values WBC 3.9 K/uL (4.8-10.8) L 09/27/17 04:30 RBC 3.88 Mil/uL (3.80-5.20) 09/27/17 04:30 Hgb 11.5 g/dL (12.0-16.0) L 09/27/17 04:30 Hct 35.6 % (34.0-47.0) 09/27/17 04:30 MCV 91.9 fl (81.0-99.0) 09/27/17 04:30 MCH 29.7 pg (27.0-31.0) 09/27/17 04:30 MCHC 32.3 g/dL (33.0-37.0) L 09/27/17 04:30 RDW 13.9 % (11.5-14.5) 09/27/17 04:30 Plt Count 130 K/uL (130-400) 09/27/17 04:30 MPV 8.9 fl (7.2-11.7) 09/26/17 04:25 Neut % (Auto) 52.8 % (50.0-75.0) 09/26/17 04:25 Lymph % (Auto) 25.7 % (20.0-40.0) 09/26/17 04:25 [place] % (Auto) 19.5 % (0.0-10.0) H 09/26/17 04:25 Eos % (Auto) 1.4 % (0.0-4.0) 09/26/17 04:25 Baso % (Auto) 0.6 % (0.0-2.0) 09/26/17 04:25 Neut # (Auto) 1.7 K/uL (1.8-7.0) L 09/26/17 04:25 Lymph # (Auto) 0.8 K/uL (1.0-4.3) L 09/26/17 04:25 [place] # (Auto) 0.6 K/uL (0.0-0.8) 09/26/17 04:25 Eos # (Auto) 0.0 K/uL (0.0-0.7) 09/26/17 04:25 Baso # (Auto) 0.0 K/uL (0.0-0.2) 09/26/17 04:25 PT 26.0 Seconds (9.8-13.1) H 09/27/17 10:40 INR 2.3 (0.9-1.2) H 09/27/17 10:40 APTT 43.1 Seconds (25.6-37.1) H 09/25/17 16:35 pCO2 51 mm/Hg (35-45) H 09/25/17 14:31 pO2 50 mm/Hg (80-100) L 09/25/17 14:31 HCO3 28.0 mmol/L (21-28) 09/25/17 14:31 ABG pH 7.38 (7.35-7.45) 09/25/17 14:31 ABG Total CO2 31.8 mmol/L (22-28) H 09/25/17 14:31 ABG O2 Saturation 95.9 % (95-98) 09/25/17 14:31 ABG O2 Content 14.7 ML/dL (15-23) L 09/25/17 14:31 ABG Base Excess 4.1 mmol/L (-2.0-3.0) H 09/25/17 14:31 ABG Hemoglobin 11.5 g/dL (11.7-17.4) L 09/25/17 14:31 ABG Carboxyhemoglobin 2.7 % (0.5-1.5) H 09/25/17 14:31 POC ABG HHb (Measured) 3.9 % (0.0-5.0) 09/25/17 14:31 ABG Methemoglobin 2.5 % (0.0-3.0) 09/25/17 14:31 ABG O2 Capacity 15.3 mL/dL (16-24) L 09/25/17 14:31 Ammon Test Yes 09/25/17 14:31 A-a O2 Difference 100.0 mm/Hg 09/25/17 14:31 Hgb O2 Saturation 90.9 % (95.0-98.0) L 09/25/17 14:31 FiO2 30.0 % 09/25/17 14:31 Blood Gas Comments 21% pt was on room air not 30% 09/25/17 14:31 Crit Value Read Back N 09/25/17 14:31 Sodium 142 mmol/l (132-148) 09/27/17 04:30 Potassium 4.0 MMOL/L (3.6-5.0) 09/27/17 04:30 Chloride 97 mmol/L (98-107) L 09/27/17 04:30 Carbon Dioxide 33 mmol/L (22-30) H 09/27/17 04:30 Anion Gap 16 (10-20) 09/27/17 04:30 BUN 47 mg/dl (7-17) H 09/27/17 04:30 Creatinine 1.8 mg/dl (0.7-1.2) H 09/27/17 04:30 Est GFR ( Amer) 33 09/27/17 04:30 Est GFR (Non-Af Amer) 27 09/27/17 04:30 POC Glucose (mg/dL) 151 mg/dL (65-110) H 09/28/17 05:21 Random Glucose 109 mg/dL (65-105) H 09/27/17 04:30 Calcium 8.5 mg/dL (8.4-10.2) 09/27/17 04:30 Total Bilirubin 0.5 mg/dl (0.2-1.3) 09/25/17 12:00 AST 28 U/L (14-36) 09/25/17 12:00 ALT 29 U/L (9-52) 09/25/17 12:00 Alkaline Phosphatase 65 U/L (38-126) 09/25/17 12:00 Troponin I 0.0210 ng/mL (0.00-0.120) 09/25/17 12:00 NT-Pro-B Natriuret Pep 2490 pg/ml (0-900) H 09/25/17 12:00 Total Protein 7.0 G/DL (6.3-8.2) 09/25/17 12:00 Albumin 3.8 g/dL (3.5-5.0) 09/25/17 12:00 Globulin 3.2 gm/dL (2.2-3.9) 09/25/17 12:00 Albumin/Globulin Ratio 1.2 (1.0-2.1) 09/25/17 12:00 Urine Color Yellow (YELLOW) 09/25/17 18:30 Urine Appearance Turbid (CLEAR) 09/25/17 18:30 Urine pH 8.0 (5.0-8.0) 09/25/17 18:30 Ur Specific Gleason 1.012 (1.003-1.030) 09/25/17 18:30 Urine Protein 30 mg/dL (NEGATIVE) 09/25/17 18:30 Urine Glucose (UA) Neg mg/dL (Normal) 09/25/17 18:30 Urine Ketones Negative mg/dL (NEGATIVE) 09/25/17 18:30 Urine Blood Negative (NEGATIVE) 09/25/17 18:30 Urine Nitrate Negative (NEGATIVE) 09/25/17 18:30 Urine Bilirubin Negative (NEGATIVE) 09/25/17 18:30 Urine Urobilinogen 0.2-1.0 mg/dL (0.2-1.0) 09/25/17 18:30 Ur Leukocyte Esterase Mod Adiel/uL (Negative) 09/25/17 18:30 Influenza Typ A,B (EIA) Pos for influenza a (NEGATIVE) H 09/25/17 16:35 - Hospital Course Hospital Course: 81 y/o woman w/ pmh of chronic reduced EF CHF, pacemaker, IDDM2, HTN, and atrial fibrillation presenting with SOB and diarrhea. The patient was seen in the ED and found to have influenza A. Patient admitted for influenza, VS showed elevated BP, CBC showed mild anemia, CMP showed elevated Cr consist w/ CKD stage 3, negative troponin, pro-BNP 2490 (baseline), CXR no active disease. Patient treated for influenza with tamiflu renally dosed. Patient seen by legal summer intern Dr. Farias and pulmonogist Dr. Guallpa. Patient found to not be in acute systolic CHF exacerbation, re-treated by cardiology. Pulmonology recommneds CPAP. Patient seen by physical therapy, who recommend skilled PT. Patient breathing better and feeling better but reports mild cough. Patient has been seen, examined, and deemed medically fit for discharge to TCU. Discharge Exam - Head Exam Head Exam: ATRAUMATIC, NORMAL INSPECTION, NORMOCEPHALIC - Eye Exam Eye Exam: Normal appearance - ENT Exam ENT Exam: Mucous Membranes Moist - Neck Exam Neck exam: Tenderness - Respiratory Exam Respiratory Exam: Wheezes. absent: Decreased Breath Sounds, Rales, Rhonchi, Respiratory Distress - Cardiovascular Exam Cardiovascular Exam: REGULAR RHYTHM. absent: Tachycardia - GI/Abdominal Exam GI & Abdominal Exam: Normal Bowel Sounds, Soft. absent: Distended, Tenderness - Extremities Exam Additional comments: chronic venous stasis, varicose veins bilaterally, no pedal edema - Neurological Exam Neurological exam: Alert, Oriented x3 - Skin Skin Exam: Dry, Intact, Normal Color, Warm Discharge Plan - Discharge Medications Prescriptions: Oseltamivir Phosphate [Tamiflu] 30 mg PO BID 3 Days #6 capsule - Follow Up Plan Condition: STABLE Disposition: TRANSF TO SNF Instructions: Flu, Heart Failure, Adult (DC), Flu, Adult (DC) Additional Instructions: Discharge to TCU Referrals: Han Farias MD [Staff Provider] - Julien Oates MD [Family Provider] - Aravind Guallpa MD [Staff Provider] -
[2017-09-28 13:05] VITALS: PULSE 60
[2017-09-28 15:55] VITALS: BP 113/67; RESP 18; TEMP 99; O2SAT 96
--- NOTE | 2017-09-28 16:18 | CP.PCM.PN ---
Subjective - Date & Time of Evaluation Date of Evaluation: 09/28/17 Time of Evaluation: 07:10 - Subjective Subjective: The patient was seen and examined bedside this morning. There are no acute events overnight. The patient is laying in bed, NAD. The patient is feeling a little better and breathing better. However, patient still reports cough. Patient has no other complaints. Objective - Vital Signs/Intake and Output Vital Signs (last 24 hours): Temp Pulse Resp BP Pulse Ox 99.0 F 60 18 113/67 96 09/28/17 15:55 09/28/17 15:55 09/28/17 15:55 09/28/17 15:55 09/28/17 15:55 Intake and Output: 09/28/17 09/28/17 06:59 18:59 Intake Total 200 Output Total 2 Balance 198 - Medications Medications: Current Medications Acetaminophen (Tylenol 325mg Tab) 650 mg PO Q6 PRN PRN Reason: Headache Albuterol/Ipratropium (Duoneb 3 Mg/0.5 Mg (3 Ml) Ud) 3 ml INH RQ6 [facility] Last Admin: 09/28/17 14:08 Dose: 3 ml Atorvastatin Calcium (Lipitor) 10 mg PO HS [facility] Last Admin: 09/27/17 22:00 Dose: 10 mg Azithromycin (Zithromax) 250 mg PO DAILY [facility] PRN Reason: Protocol Stop: 09/30/17 09:01 Last Admin: 09/28/17 09:47 Dose: 250 mg Carvedilol (Coreg) 25 mg PO BID@0900,2100 [facility] Last Admin: 09/28/17 09:45 Dose: 25 mg Dextrose (Dextrose 50% Inj) 0 ml IV STAT PRN; Protocol PRN Reason: Hypoglycemia Protocol Dextrose (Glutose 15) 0 gm PO ONCE PRN; Protocol PRN Reason: Hypoglycemia Protocol Ergocalciferol (Calcidol) 0 intlu PO DAILY [facility] Furosemide (Lasix) 20 mg PO BID [facility] Last Admin: 09/28/17 09:56 Dose: 20 mg Glucagon (Glucagen Diagnostic Kit) 0 mg IM STAT PRN; Protocol PRN Reason: Hypoglycemia Protocol Guaifenesin/Dextromethorphan (Mucinex-Dm 600-30 Mg) 1 tab PO BID [facility] Last Admin: 09/28/17 09:47 Dose: 1 tab Insulin Detemir (Levemir) 22 units SC HS [facility] Last Admin: 09/27/17 22:01 Dose: 22 units Insulin Human Lispro (Humalog) 0 units SC AC [facility] PRN Reason: Protocol Last Admin: 09/28/17 07:46 Dose: 1 unit Oseltamivir Phosphate (Tamiflu Susp) 30 mg PO BID [facility] PRN Reason: Protocol Last Admin: 09/28/17 09:56 Dose: 30 mg Sertraline HCl (Zoloft) 50 mg PO DAILY [facility] Last Admin: 09/28/17 09:47 Dose: 50 mg Sitagliptin Phosphate (Januvia) 25 mg PO DAILY [facility] Last Admin: 09/28/17 09:45 Dose: 25 mg - Labs Labs: 09/27/17 04:30 09/27/17 04:30 PT 26.0 Seconds (9.8-13.1) H 09/27/17 10:40 INR 2.3 (0.9-1.2) H 09/27/17 10:40 APTT 43.1 Seconds (25.6-37.1) H 09/25/17 16:35 - Constitutional Appears: No Acute Distress - Head Exam Head Exam: ATRAUMATIC, NORMAL INSPECTION, NORMOCEPHALIC - Eye Exam Eye Exam: Normal appearance - ENT Exam ENT Exam: Mucous Membranes Moist - Neck Exam Neck Exam: Full ROM. absent: Tenderness - Respiratory Exam Respiratory Exam: Wheezes. absent: Decreased Breath Sounds, Rales, Rhonchi, Respiratory Distress Additional comments: mild scattered wheeze, patient able to speak in complete sentences, no respiratory distress - Cardiovascular Exam Cardiovascular Exam: REGULAR RHYTHM, Murmur. absent: Tachycardia Additional comments: systolic murmur - GI/Abdominal Exam GI & Abdominal Exam: Soft, Normal Bowel Sounds. absent: Distended, Tenderness - Extremities Exam Extremities Exam: absent: Calf Tenderness, Pedal Edema, Tenderness Additional comments: varicose veins bilaterally - Neurological Exam Neurological Exam: Alert, Awake, Oriented x3 - Skin Skin Exam: Dry, Intact, Normal Color, Warm Assessment and Plan (1) Influenza A Status: Acute - Assessment and Plan (Free Text) Assessment: 81 y/o woman w/ pmh of chronic reduced EF CHF, pacemaker, IDDM2, HTN, and atrial fibrillation presenting with SOB and diarrhea. Plan: Short of Breath - improving - Possible 2/2 acute URI, but Cardiac etiology can not be r/o because patient has a significant cardiac history - currently scattered wheeze on exam - Cont Cardiac monitoring - NC at 2 L prn - Pulse oxymeter monitoring - measure weight daily - I & O daily - ABG: mild elevated PCO2/51, normal PH, normal HCO3 - CXR on admission was unremarkable. Official report showed no active disease - Given Duoneb once - duoneb Q6h mana - s/p Lasix 40 mg IV once, Nitro 2 % TOP once - pulmonolgy consulted, Dr. Guallpa, recommendations appreciated - CPAP 9 cm water pressure Upper Respiratory infection - Acute x3 days, afebrile - most likely viral etiology - no evidence of SIRS - azithromycin 250 mg PO daily day 3 - Influenza A/B: positive - tamiflu (renally dosed, CrCl 46): 30 mg PO BID daily Day 3 - Mucinex DM - Acetaminophen 650 mg PO PRN (normal AST/ALT on admission) - f/u respiratory status Watery Diarrheas - improving - no episode of diarrhea overnight - acute, 2 days prior to admission - afebrile, nonbloody - most likely viral etiology - no recent antibiotic treatment - f/u fecal leukocytes - will consider C-diff (no fevers, no abd pain now, no leukocytosis) - f/u for resolution, improvement or worsening Chronic Reduced EF CHF - does not seem to be in exacerbation - no evidence of significant pleural effusion, no LE pedal edema, no crackles on auscultation - c/w Home dose of lasix. Furosemide 20 mg PO BID - c/w Carvedilol 25 mg PO BID - heart healthy diet - pro-BNP on admission 2490 ( could be pt's baseline) - measure weight daily - I & O daily - Echo on 10/20/16 reported as severely reduced LVEF 20-25 %, global hypokinesis - cardiology consulted, Dr. Farias, recommendations appreciated H/O A Fib - Pacemaker, Paced rhythm - Controlled - c/w Carvedilol - On Coumadin 6 mg daily as per patient and family report, confirmed w/ Pharmacy - INR 2.5 - repeat INR before next dose Diabetes Mellitus type 2 - c/w Accuchek - resume home Januvia 25 mg QD (renal adjusted) - resume Levemir 22 units at bedtime ( as per pt report and old records) - insulin Lispro before meals per protocol. Low dose for now - Hypoglycemic protocol - Diabetic diet CKD stage 3 - On ergocalciferol 50,000 unit weekly - normal potassium, stable BUN/Cr Diet - heart healthy and diabetic Prophylactic measures - DVT: On anticoagulant Coumadin 6 mg PO daily
[2017-09-28 18:32] LABS: INR 2.8 (0.9-1.2); PROTHROMBIN TIME 31.8 Seconds (9.8-13.1)
== END 2017-09-28 18:30 | DRG 194 ==
LOC: SUPCPDRO 11:15 → H.ER 11:15 → H.ERHOLD 14:51 → UNDOADMIN 14:51 → H.ERHOLD 14:59 → H.TEL 21:16
PROVIDERS: ADMIT Family Medicine; ATTEND Family Medicine
DX: J10.1 Influenza due to other identified influenza virus with other respiratory manifestations (principal); I50.22 Chronic systolic (congestive) heart failure; E11.22 Type 2 diabetes mellitus with diabetic chronic kidney disease; R06.89 Other abnormalities of breathing; I27.20 Pulmonary hypertension, unspecified; I13.0 Hypertensive heart and chronic kidney disease with heart failure and stage 1 through stage 4 chronic kidney disease, or unspecified chronic kidney disease; Z68.41 Body mass index [BMI] 40.0-44.9, adult; I08.1 Rheumatic disorders of both mitral and tricuspid valves; I48.91 Unspecified atrial fibrillation; N18.3 Chronic kidney disease, stage 3 (moderate); Z79.01 Long term (current) use of anticoagulants; Z95.0 Presence of cardiac pacemaker; Z96.641 Presence of right artificial hip joint; Z96.652 Presence of left artificial knee joint; E78.00 Pure hypercholesterolemia, unspecified; R19.7 Diarrhea, unspecified; E66.9 Obesity, unspecified; G47.33 Obstructive sleep apnea (adult) (pediatric); R09.02 Hypoxemia; Z79.4 Long term (current) use of insulin; I83.12 Varicose veins of left lower extremity with inflammation; I83.11 Varicose veins of right lower extremity with inflammation; D64.9 Anemia, unspecified

== ENCOUNTER 2017-09-28 19:14 | Inpatient (IN) | payer OTHER ==
[2017-09-28 19:27] VITALS: BMI 43.5
[2017-09-28] MEDS: Insulin Detemir 100 Units/ml Inj SC SCH (21:54)
[2017-09-29] MEDS: Albuterol-Ipratrop 3 mg / 0.5 (3 ml) UD INH SCH ×4 (01:01→19:20)
[2017-09-29 08:13] LABS: INR 3.1 (0.9-1.2); PROTHROMBIN TIME 35.7 Seconds (9.8-13.1)
[2017-09-29] MEDS ORDERED: Ergocalciferol 400 INTLU/0.05 ML PO SCH (09:00)
--- NOTE | 2017-09-29 10:05 | CP.PCM.HP ---
<LennyTimuraldair Ga - Last Filed: 09/29/17 09:46> History of Present Illness - History of Present Illness History of Present Illness: HPI: The patient is a 81 y/o woman w/ pmh of chronic reduced EF CHF with LVEF 20 -25 % (on last Echo done on 10/20/16), Pacemaker (placed 10 years ago), IDDM2, HTN, A fib on coumadin, CKD admitted to TCU to continue physical therapy. The patient was admitted 4 days ago for positive influenza. The patient was seen by automobile appraiser Dr. Farias and found to not be in acute CHF exacerbation. Patient also had pacemaker interrogated. Patient also seen by Dr. Guallpa for pulmonology and started on CPAP. The patient reports breathing improved w/ treatments and has received tamiflu to treat influenza. The patient has no other complaints. PMD: Dr. Oates. Hospital Clerk: Dr. Farias PMHx: chronic reduced EF CHF with LVEF 20-25 % (on last Echo done on 10/20/16), Pacemaker (placed 10 years ago), IDDM2, HTN, A fib on coumadin, CKD stage 3 Pacemaker last checked in September/2017 as per patient and family. Medications: coumadin 6mg, carvedilol 25 mg BID, atorvastatin 10mg, lasix 40 mg , januvia 25mg, Levemir 22u, zoloft 50 mg, ergocalciferol 50,000 unit weekly, Allergies : none Surgical hx: pacemaker placement 10 years ago, Right hip replacement, left knee replacement Social: denies smoking, EtOH, drugs. lives alone, uses walker to ambulate, and needs assistance. Present on Admission - Present on Admission Any Indicators Present on Admission: No History of DVT/PE: No History of Uncontrolled Diabetes: No Urinary Catheter: No Decubitus Ulcer Present: No Review of Systems - Review of Systems All systems: reviewed and no additional remarkable complaints except - Constitutional Constitutional: absent: Chills, Fever - EENT Eyes: absent: Change in Vision - Cardiovascular Cardiovascular: absent: Chest Pain - Respiratory Respiratory: Wheezing. absent: Dyspnea - Gastrointestinal Gastrointestinal: absent: Abdominal Pain, Diarrhea, Nausea, Vomiting - Genitourinary Genitourinary: absent: Dysuria - Integumentary Integumentary: absent: Rash - Neurological Neurological: absent: Headaches, Vertigo Past Patient History - Past Medical History & Family History Past Medical History?: Yes - Past Social History Smoking Status: Never Smoked - CARDIAC Hx Cardiac Disorders: Yes Hx Hypercholesterolemia: Yes Hx Hypertension: Yes - PULMONARY Hx Sleep Apnea: Yes - NEUROLOGICAL Hx Neurological Disorder: No - HEENT Hx HEENT Problems: No - RENAL Hx Chronic Kidney Disease: Yes Hx Dialysis: No - ENDOCRINE/METABOLIC Hx Diabetes Mellitus Type 2: Yes - HEMATOLOGICAL/ONCOLOGICAL Hx Blood Disorders: No Hx AIDS: No Hx Human Immunodeficiency Virus (HIV): No - INTEGUMENTARY Hx Dermatological Problems: No - MUSCULOSKELETAL/RHEUMATOLOGICAL Hx Falls: No Hx Fractures: Yes - GASTROINTESTINAL Hx Gastrointestinal Disorders: No - GENITOURINARY/GYNECOLOGICAL Hx Genitourinary Disorders: No - PSYCHIATRIC Hx Substance Use: No - SURGICAL HISTORY Hx Surgeries: Yes Hx Joint Replacement: Yes (right hip and left knee) - ANESTHESIA Hx Anesthesia: Yes Hx Anesthesia Reactions: No Hx Malignant Hyperthermia: No Meds Allergies/Adverse Reactions: Allergies Allergy/AdvReac Type Severity Reaction Status Date / Time No Known Allergies Allergy Verified 09/28/17 19:25 Physical Exam - Constitutional Appears: No Acute Distress - Head Exam Head Exam: ATRAUMATIC, NORMAL INSPECTION, NORMOCEPHALIC - Eye Exam Eye Exam: Normal appearance - ENT Exam ENT Exam: Mucous Membranes Moist - Neck Exam Neck exam: Positive for: Full Rom. Negative for: Tenderness - Respiratory Exam Respiratory Exam: Wheezes. absent: Decreased Breath Sounds, Rales, Rhonchi, Respiratory Distress - Cardiovascular Exam Cardiovascular Exam: REGULAR RHYTHM. absent: Tachycardia Additional comments: systolic murmur - GI/Abdominal Exam GI & Abdominal Exam: Normal Bowel Sounds, Soft. absent: Distended, Tenderness - Extremities Exam Extremities exam: Negative for: calf tenderness, pedal edema, tenderness Additional comments: chronic venous stasis, varicose veins bilaterally, no pedal edema - Neurological Exam Neurological exam: Alert, Oriented x3 - Skin Skin Exam: Dry, Intact, Normal Color, Warm Results - Vital Signs Recent Vital Signs: Last Vital Signs Temp 98.0 F 09/29/17 07:44 Pulse 82 09/29/17 08:40 Resp 18 09/29/17 07:44 BP 117/60 09/29/17 08:42 Pulse Ox 97 09/29/17 07:44 - Labs Labs: Laboratory Results - last 24 hr 09/29/17 09/29/17 05:09 07:15 PT 35.7 H INR 3.1 H POC Glucose (mg/dL) 192 H Assessment & Plan - Assessment and Plan (Free Text) Assessment: 81 y/o woman w/ pmh of chronic reduced EF CHF, pacemaker, IDDM2, HTN, and atrial fibrillation presenting with SOB and diarrhea. Plan: Deconditioning - admit to TCU - physcial therapy consulted, recommendations appreciated - continue PT Short of Breath - improving - Possible 2/2 acute URI, but Cardiac etiology can not be r/o because patient has a significant cardiac history - currently scattered wheeze on exam - NC at 2 L prn - CXR on admission was unremarkable. Official report showed no active disease - duoneb Q6h mana - albuterol 2.5 mg INH Q4h prn Influenza A - Acute x3 days, afebrile - most likely viral etiology - azithromycin 250 mg PO daily day 4 - Influenza A/B: positive - tamiflu (renally dosed, CrCl 46): 30 mg PO BID daily Day 4 - Mucinex DM - Acetaminophen 650 mg PO PRN (normal AST/ALT on admission) - f/u respiratory status Chronic Reduced EF CHF - does not seem to be in exacerbation - no evidence of significant pleural effusion, no LE pedal edema, no crackles on auscultation - c/w Home dose of lasix. Furosemide 20 mg PO BID - c/w Carvedilol 25 mg PO BID - heart healthy diet - pro-BNP on admission 2490 ( could be pt's baseline) - Echo on 10/20/16 reported as severely reduced LVEF 20-25 %, global hypokinesis - cardiology consulted, Dr. Farias, recommendations appreciated H/O A Fib - Pacemaker, Paced rhythm - Controlled - c/w Carvedilol - On Coumadin 6 mg daily as per patient and family report, confirmed w/ Pharmacy - INR 3.1 - repeat INR before next dose Diabetes Mellitus type 2 - c/w Accuchek - resume home Januvia 25 mg QD (renal adjusted) - resume Levemir 22 units at bedtime ( as per pt report and old records) - insulin Lispro before meals per protocol. Low dose for now - Hypoglycemic protocol - Diabetic diet CKD stage 3 - On ergocalciferol 50,000 unit weekly - normal potassium, stable BUN/Cr Diet - heart healthy and diabetic Prophylactic measures - DVT: On anticoagulant Coumadin 6 mg PO daily <Julien Oates - Last Filed: 09/30/17 07:02> Results - Vital Signs Recent Vital Signs: Last Vital Signs Temp 98.2 F 09/29/17 19:29 Pulse 83 09/29/17 19:29 Resp 20 09/29/17 19:29 BP 119/58 L 09/29/17 19:29 Pulse Ox 100 09/29/17 19:29 - Labs Labs: Laboratory Results - last 24 hr 09/29/17 09/29/17 09/29/17 07:15 10:45 16:18 PT 35.7 H INR 3.1 H POC Glucose (mg/dL) 241 H 259 H 09/29/17 09/30/17 09/30/17 20:40 06:01 06:20 PT 38.4 H INR 3.4 H POC Glucose (mg/dL) 272 H 209 H Attending/Attestation - Attestation I have personally seen and examined this patient.: Yes I have fully participated in the care of the patient.: Yes I have reviewed all pertinent clinical information: Yes
[2017-09-29] MEDS ORDERED: Albuterol 0.083% Inhal Sol (2.5 mg/3 mL) UD INH PRN (10:27)
[2017-09-29] MEDS ORDERED: Vitamin A/D oint 60G TP PRN (14:24)
[2017-09-29] MEDS ORDERED: WARFARIN SODIUM 6 MG PO SCH (17:00)
[2017-09-29] MEDS: Cholecalciferol 400 Intl Units Tab PO SCH ×2 (17:23→21:50)
[2017-09-29] MEDS ORDERED: Dextrose 50% SYRINGE Inj (50 ml) IV PRN (17:54)
[2017-09-29] MEDS ORDERED: Glucagon Recombinant 1 mg Inj IM PRN (17:54)
[2017-09-29] MEDS: Insulin Regular 100 units/ml SC SCH ×2 (21:46→22:00)
[2017-09-29] MEDS: Insulin Detemir 100 Units/ml Inj SC SCH (21:49)
[2017-09-30] MEDS: Albuterol-Ipratrop 3 mg / 0.5 (3 ml) UD INH SCH ×4 (00:59→19:30)
[2017-09-30 06:47] LABS: PROTHROMBIN TIME 38.4 Seconds (9.8-13.1)
[2017-09-30 06:49] LABS: INR 3.4 (0.9-1.2)
[2017-09-30] MEDS: Insulin Regular 100 units/ml SC SCH ×4 (06:52→21:37)
[2017-09-30] MEDS: Cholecalciferol 400 Intl Units Tab PO SCH (09:06)
--- NOTE | 2017-09-30 09:09 | CP.PCM.PN ---
<Timur Galvez - Last Filed: 09/30/17 16:00> Subjective - Date & Time of Evaluation Date of Evaluation: 09/30/17 Time of Evaluation: 08:35 - Subjective Subjective: The patient was seen and examined this morning bedside. There are no acute events overnight, NAD. Patient's INR remains supra-therapeutic, warfarin held. Patient sitting in chair comfortably. The patient complains of non- productive cough at times. Patient has no other complaints. Objective - Vital Signs/Intake and Output Vital Signs (last 24 hours): Temp Pulse Resp BP Pulse Ox 98.2 F 84 20 142/62 99 09/30/17 08:36 09/30/17 09:07 09/30/17 08:36 09/30/17 09:07 09/30/17 08:36 - Medications Medications: Current Medications Acetaminophen (Tylenol 325mg Tab) 650 mg PO Q6 PRN PRN Reason: Headache Albuterol Sulfate (Albuterol 0.083% Inhal Danelle (2.5 Mg/3 Ml) Ud) 2.5 mg INH RQ4 PRN PRN Reason: Shortness of Breath Albuterol/Ipratropium (Duoneb 3 Mg/0.5 Mg (3 Ml) Ud) 3 ml INH RQ6 [facility] Last Admin: 09/30/17 07:28 Dose: 3 ml Atorvastatin Calcium (Lipitor) 10 mg PO DAILY [facility] Last Admin: 09/30/17 09:06 Dose: 10 mg Azithromycin (Zithromax) 250 mg PO DAILY [facility] PRN Reason: Protocol Last Admin: 09/30/17 09:06 Dose: 250 mg Carvedilol (Coreg) 25 mg PO BID [facility] Last Admin: 09/30/17 09:07 Dose: 25 mg Dextrose (Dextrose 50% Inj) 0 ml IV STAT PRN; Protocol PRN Reason: Hypoglycemia Protocol Dextrose (Glutose 15) 0 gm PO ONCE PRN; Protocol PRN Reason: Hypoglycemia Protocol Furosemide (Lasix) 20 mg PO DAILY [facility] Last Admin: 09/30/17 09:06 Dose: 20 mg Glucagon (Glucagen Diagnostic Kit) 0 mg IM STAT PRN; Protocol PRN Reason: Hypoglycemia Protocol Insulin Detemir (Levemir) 22 units SC HS [facility] Last Admin: 09/29/17 21:49 Dose: 22 units Insulin Human Regular (Humulin R) 0 units SC ACHS [facility] PRN Reason: Protocol Last Admin: 09/30/17 06:52 Dose: 3 units Oseltamivir Phosphate (Tamiflu) 30 mg PO BID [facility] PRN Reason: Protocol Last Admin: 09/30/17 09:06 Dose: 30 mg Sertraline HCl (Zoloft) 50 mg PO DAILY [facility] Last Admin: 09/30/17 09:06 Dose: 50 mg Sitagliptin Phosphate (Januvia) 25 mg PO DAILY@0800 [facility] Last Admin: 09/30/17 09:06 Dose: 25 mg Vitamin A (Vitamin A&D) 1 applic TP Q8 PRN PRN Reason: Dry skin Last Admin: 09/29/17 16:41 Dose: 1 applic Vitamin D (Vitamin D 400 Intl Units Tab) 400 intlu PO DAILY [facility] Last Admin: 09/30/17 09:06 Dose: 400 intlu - Labs Labs: PT 38.4 Seconds (9.8-13.1) H 09/30/17 06:01 INR 3.4 (0.9-1.2) H 09/30/17 06:01 - Constitutional Appears: No Acute Distress - Head Exam Head Exam: ATRAUMATIC, NORMAL INSPECTION, NORMOCEPHALIC - Eye Exam Eye Exam: Normal appearance - ENT Exam ENT Exam: Mucous Membranes Moist - Neck Exam Neck Exam: Full ROM. absent: Tenderness - Respiratory Exam Respiratory Exam: Wheezes. absent: Decreased Breath Sounds, Rales, Rhonchi, Respiratory Distress - Cardiovascular Exam Cardiovascular Exam: REGULAR RHYTHM. absent: Tachycardia Additional comments: systolic murmur - GI/Abdominal Exam GI & Abdominal Exam: Soft, Normal Bowel Sounds. absent: Distended, Tenderness - Extremities Exam Extremities Exam: absent: Calf Tenderness, Pedal Edema, Tenderness Additional comments: chronic venous stasis, varicose veins bilaterally, no pedal edema - Neurological Exam Neurological Exam: Alert, Awake, Oriented x3 - Skin Skin Exam: Dry Assessment and Plan - Assessment and Plan (Free Text) Assessment: 81 y/o woman w/ pmh of chronic reduced EF CHF, pacemaker, IDDM2, HTN, and atrial fibrillation presenting with SOB and diarrhea. Admitted to TCU for continued physical therapy Plan: Deconditioning - admit to TCU - physcial therapy consulted, recommendations appreciated - continue PT Short of Breath - improving - Possible 2/2 acute URI, but Cardiac etiology can not be r/o because patient has a significant cardiac history - currently scattered wheeze on exam - NC at 2 L prn - CXR on admission was unremarkable. Official report showed no active disease - duoneb Q6h mana - albuterol 2.5 mg INH Q4h prn - CXR: no active pulmonary disease Influenza A - Acute x4 days, afebrile - most likely viral etiology - azithromycin 250 mg PO daily day 5 - Influenza A/B: positive - tamiflu (renally dosed, CrCl 46): 30 mg PO BID daily Day 5 - Mucinex DM - Acetaminophen 650 mg PO PRN (normal AST/ALT on admission) - f/u respiratory status Chronic Reduced EF CHF - does not seem to be in exacerbation - no evidence of significant pleural effusion, no LE pedal edema, no crackles on auscultation - c/w Home dose of lasix. Furosemide 20 mg PO BID - c/w Carvedilol 25 mg PO BID - heart healthy diet - pro-BNP on admission 2490 ( could be pt's baseline) - Echo on 10/20/16 reported as severely reduced LVEF 20-25 %, global hypokinesis - cardiology consulted, Dr. Farias, recommendations appreciated H/O A Fib - Pacemaker, Paced rhythm - Controlled - c/w Carvedilol - On Coumadin 6 mg daily as per patient and family report, confirmed w/ Pharmacy - INR 3.4 - as per cardiology, hold warfarin until in therapeutic range - repeat INR before next dose Diabetes Mellitus type 2 - c/w Accuchek - resume home Januvia 25 mg QD (renal adjusted) - resume Levemir 22 units at bedtime ( as per pt report and old records) - insulin Lispro before meals per protocol. Low dose for now - Hypoglycemic protocol - Diabetic diet CKD stage 3 - On ergocalciferol 50,000 unit weekly - normal potassium, stable BUN/Cr Diet - heart healthy and diabetic Prophylactic measures - DVT: On anticoagulant Coumadin 6 mg PO daily, held; SCDs for now until INR in therapeutic range <Salvador Obando - Last Filed: 10/03/17 06:48> Objective - Vital Signs/Intake and Output Vital Signs (last 24 hours): Temp Pulse Resp BP Pulse Ox 97.2 F L 90 20 132/61 98 10/02/17 19:56 10/02/17 19:56 10/02/17 19:56 10/02/17 19:56 10/02/17 19:56 - Medications Medications: Current Medications Acetaminophen (Tylenol 325mg Tab) 650 mg PO Q6 PRN PRN Reason: Headache Albuterol Sulfate (Albuterol 0.083% Inhal Danelle (2.5 Mg/3 Ml) Ud) 2.5 mg INH RQ4 PRN PRN Reason: Shortness of Breath Albuterol/Ipratropium (Duoneb 3 Mg/0.5 Mg (3 Ml) Ud) 3 ml INH RQ6 [facility] Last Admin: 10/03/17 00:59 Dose: 3 ml Atorvastatin Calcium (Lipitor) 10 mg PO DAILY [facility] Last Admin: 10/02/17 08:21 Dose: 10 mg Azithromycin (Zithromax) 250 mg PO DAILY [facility] PRN Reason: Protocol Last Admin: 10/02/17 08:21 Dose: 250 mg Carvedilol (Coreg) 25 mg PO BID [facility] Last Admin: 10/02/17 16:41 Dose: 25 mg Dextrose (Dextrose 50% Inj) 0 ml IV STAT PRN; Protocol PRN Reason: Hypoglycemia Protocol Dextrose (Glutose 15) 0 gm PO ONCE PRN; Protocol PRN Reason: Hypoglycemia Protocol Furosemide (Lasix) 20 mg PO DAILY [facility] Last Admin: 10/02/17 08:22 Dose: 20 mg Glucagon (Glucagen Diagnostic Kit) 0 mg IM STAT PRN; Protocol PRN Reason: Hypoglycemia Protocol Ceftriaxone Sodium 1 gm/ (Sodium Chloride) 100 mls @ 100 mls/hr IVPB DAILY@ 1700 [facility] PRN Reason: Protocol Last Admin: 10/02/17 16:40 Dose: 100 mls/hr Insulin Detemir (Levemir) 22 units SC HS [facility] Last Admin: 10/02/17 21:16 Dose: 22 units Insulin Human Regular (Humulin R) 0 units SC ACHS [facility] PRN Reason: Protocol Last Admin: 10/03/17 06:33 Dose: Not Given Sertraline HCl (Zoloft) 50 mg PO DAILY [facility] Last Admin: 10/02/17 08:22 Dose: 50 mg Sitagliptin Phosphate (Januvia) 25 mg PO DAILY@0800 [facility] Last Admin: 10/02/17 08:22 Dose: 25 mg Vitamin A (Vitamin A&D) 1 applic TP Q8 PRN PRN Reason: Dry skin Last Admin: 09/29/17 16:41 Dose: 1 applic Vitamin D (Vitamin D 400 Intl Units Tab) 400 intlu PO DAILY [facility] Last Admin: 10/02/17 08:21 Dose: 400 intlu - Labs Labs: 10/01/17 11:59 10/02/17 07:05 PT 30.1 Seconds (9.8-13.1) H 10/02/17 07:05 INR 2.7 (0.9-1.2) H 10/02/17 07:05 Attending/Attestation - Attestation I have personally seen and examined this patient.: Yes I have fully participated in the care of the patient.: Yes I have reviewed all pertinent clinical information, including history, physical exam and plan: Yes
--- NOTE | 2017-09-30 09:31 | RAD ---
PROCEDURE: CHEST RADIOGRAPH, 1 VIEW HISTORY: wheezing COMPARISON: 09/25/2017. FINDINGS: LUNGS: The lungs are clear. PLEURA: No pneumothorax or pleural fluid seen. CARDIOVASCULAR: The heart is normal in size. There is stable position of left-sided dual lead transvenous permanent pacing device. OSSEOUS STRUCTURES: No significant abnormalities. VISUALIZED UPPER ABDOMEN: Normal. OTHER FINDINGS: None. IMPRESSION: No active pulmonary disease.
--- NOTE | 2017-09-30 16:04 | CP.PCM.CON ---
History of Present Illness - History of Present Illness History of Present Illness: Elderly [place] female had been admitted to acute medicine because of influenza. She has a history of adult EULOGIO, but has never been on nasal CPAP. She had done well with treatment for the influenza and was discharged to sub acute rehab. She has been unable to use CPAP with a full face mask and will be tried on High Flow Nasal Canula to attempt to overcome her upper airway obstruction. Past Patient History - Past Medical History & Family History Past Medical History?: Yes - Past Social History Smoking Status: Never Smoked Chewing Tobacco Use: No Cigar Use: No Alcohol: Social Drugs: Denies - CARDIAC Hx Hypercholesterolemia: Yes Hx Hypertension: Yes - PULMONARY Hx Sleep Apnea: Yes - NEUROLOGICAL Hx Neurological Disorder: No - HEENT Hx HEENT Problems: No - RENAL Hx Chronic Kidney Disease: Yes - ENDOCRINE/METABOLIC Hx Diabetes Mellitus Type 2: Yes - HEMATOLOGICAL/ONCOLOGICAL Hx Blood Disorders: No Hx Human Immunodeficiency Virus (HIV): No - INTEGUMENTARY Hx Dermatological Problems: No - MUSCULOSKELETAL/RHEUMATOLOGICAL Hx Falls: No Hx Fractures: Yes - GASTROINTESTINAL Hx Gastrointestinal Disorders: No - GENITOURINARY/GYNECOLOGICAL Hx Genitourinary Disorders: No - PSYCHIATRIC Hx Substance Use: No - SURGICAL HISTORY Hx Surgeries: Yes Hx Joint Replacement: Yes (right hip and left knee) - ANESTHESIA Hx Anesthesia: Yes Hx Anesthesia Reactions: No Hx Malignant Hyperthermia: No Meds Allergies/Adverse Reactions: Allergies Allergy/AdvReac Type Severity Reaction Status Date / Time No Known Allergies Allergy Verified 09/28/17 19:25 - Medications Medications: Current Medications Acetaminophen (Tylenol 325mg Tab) 650 mg PO Q6 PRN PRN Reason: Headache Albuterol Sulfate (Albuterol 0.083% Inhal Danelle (2.5 Mg/3 Ml) Ud) 2.5 mg INH RQ4 PRN PRN Reason: Shortness of Breath Albuterol/Ipratropium (Duoneb 3 Mg/0.5 Mg (3 Ml) Ud) 3 ml INH RQ6 [facility] Last Admin: 09/30/17 13:20 Dose: 3 ml Atorvastatin Calcium (Lipitor) 10 mg PO DAILY [facility] Last Admin: 09/30/17 09:06 Dose: 10 mg Azithromycin (Zithromax) 250 mg PO DAILY [facility] PRN Reason: Protocol Last Admin: 09/30/17 09:06 Dose: 250 mg Carvedilol (Coreg) 25 mg PO BID [facility] Last Admin: 09/30/17 09:07 Dose: 25 mg Dextrose (Dextrose 50% Inj) 0 ml IV STAT PRN; Protocol PRN Reason: Hypoglycemia Protocol Dextrose (Glutose 15) 0 gm PO ONCE PRN; Protocol PRN Reason: Hypoglycemia Protocol Furosemide (Lasix) 20 mg PO DAILY [facility] Last Admin: 09/30/17 09:06 Dose: 20 mg Glucagon (Glucagen Diagnostic Kit) 0 mg IM STAT PRN; Protocol PRN Reason: Hypoglycemia Protocol Insulin Detemir (Levemir) 22 units SC HS [facility] Last Admin: 09/29/17 21:49 Dose: 22 units Insulin Human Regular (Humulin R) 0 units SC ACHS [facility] PRN Reason: Protocol Last Admin: 09/30/17 11:24 Dose: 3 units Oseltamivir Phosphate (Tamiflu) 30 mg PO BID [facility] PRN Reason: Protocol Last Admin: 09/30/17 09:06 Dose: 30 mg Sertraline HCl (Zoloft) 50 mg PO DAILY [facility] Last Admin: 09/30/17 09:06 Dose: 50 mg Sitagliptin Phosphate (Januvia) 25 mg PO DAILY@0800 [facility] Last Admin: 09/30/17 09:06 Dose: 25 mg Vitamin A (Vitamin A&D) 1 applic TP Q8 PRN PRN Reason: Dry skin Last Admin: 09/29/17 16:41 Dose: 1 applic Vitamin D (Vitamin D 400 Intl Units Tab) 400 intlu PO DAILY [facility] Last Admin: 09/30/17 09:06 Dose: 400 intlu Physical Exam - Additional Findings Additional findings: Overweight female seated in a bedside chair. In no respiratory distress. + dependant edema of both lower extremities. No cyanosis. Hyperpigmented epidermis of both ankles. No calf tenderness. Pharynx is pink and moist. Neck is supple and trachea is midline. Chest: No dullness to percussion. No axillary adenopathy. Lungs: Breath sounds are diminished bilaterally. No rales or wheezes were heard. No bronchial breathing or egophony. The heart sounds are distant and rhythm is regular. Abdomen is obese and nontender with normal bowel sounds. Results - Vital Signs Recent Vital Signs: Last Vital Signs Temp 98.2 F 09/30/17 08:36 Pulse 84 09/30/17 09:54 Resp 20 09/30/17 08:36 BP 142/62 09/30/17 09:54 Pulse Ox 98 09/30/17 09:54 - Labs Labs: Laboratory Results - last 24 hr 09/29/17 09/29/17 09/29/17 10:45 16:18 20:40 PT INR POC Glucose (mg/dL) 241 H 259 H 272 H 09/30/17 09/30/17 09/30/17 06:01 06:20 10:56 PT 38.4 H INR 3.4 H POC Glucose (mg/dL) 209 H 242 H Assessment & Plan (1) Sleep apnea in adult Assessment and Plan: Refusing BiPAP mask ventilation. Will trial HFNC at 20LPM and 24% oxygen. Status: Chronic Priority: High - Date & Time Date: 09/30/17 Time: 16:03
[2017-09-30] MEDS: Insulin Detemir 100 Units/ml Inj SC SCH (21:40)
[2017-10-01] MEDS: Albuterol-Ipratrop 3 mg / 0.5 (3 ml) UD INH SCH ×4 (01:00→20:25)
[2017-10-01] MEDS: Insulin Regular 100 units/ml SC SCH ×4 (06:54→21:41)
[2017-10-01 08:16] LABS: INR 2.7 (0.9-1.2); PROTHROMBIN TIME 30.7 Seconds (9.8-13.1)
[2017-10-01] MEDS: Cholecalciferol 400 Intl Units Tab PO SCH (08:57)
--- NOTE | 2017-10-01 09:52 | CP.PCM.CON ---
History of Present Illness - History of Present Illness History of Present Illness: this 81- year-old chronically overweight diabetic female with severe congestive cardiac failure and recurring atrial fibrillation due to sick sinus syndrome who has required a DDD pacemaker implant, was recently hospitalized with a flulike syndrome and is now in the transitional care unit before returning home. The patient has had obstructive sleep apnea which has been evaluated with sleep study. She has not been able to tolerate CPAP and has not used it. A recent evaluation of her pacemaker indicates her to be mostly in an atrial paced ventricular sensed rhythm with brief periods of atrial fibrillation. Physical examination shows an elderly exhausted obese female alert awake and coherent. Afebrile with a nonproductive cough. Her pulse rate was 76 bpm regular and her blood pressure was 120/74 mmHg. Her jugular venous pressure was not elevated there was pitting edema over both lower extremities and evidence of chronic venous stasis. Varicosities are evident on her legs.her respiratory rate was 18 breaths per minute. Her abdomen was markedly protuberant tthe apex was not palpable. First and second heart sounds were normal and distant. There was a brief murmur of tricuspid insufficiency in the left parasternal area. There were no rales. The expiration is slightly prolonged there were few crepitations audible. Again the abdomen was protuberant with no organomegaly or ascites was detected. Impression: severe exogenous obesity with obstructive sleep apnea. Congestive cardiac failure which is mostly right ventricular systolic and chronic. 6 sinus syndrome with intermittent atrial fibrillation. Diabetes mellitus and hypertension. Chronic venous insufficiency of lower extremities with stasis dermatitis. Her present medications are appropriate and the patient is stable from cardiovascular point of view. Past Patient History - Past Medical History & Family History Past Medical History?: Yes - Past Social History Smoking Status: Never Smoked - CARDIAC Hx Cardiac Disorders: Yes Hx Hypercholesterolemia: Yes Hx Hypertension: Yes - PULMONARY Hx Sleep Apnea: Yes - NEUROLOGICAL Hx Neurological Disorder: No - HEENT Hx HEENT Problems: No - RENAL Hx Chronic Kidney Disease: Yes Hx Dialysis: No - ENDOCRINE/METABOLIC Hx Diabetes Mellitus Type 2: Yes - HEMATOLOGICAL/ONCOLOGICAL Hx Blood Disorders: No Hx AIDS: No Hx Human Immunodeficiency Virus (HIV): No - INTEGUMENTARY Hx Dermatological Problems: No - MUSCULOSKELETAL/RHEUMATOLOGICAL Hx Falls: No Hx Fractures: Yes - GASTROINTESTINAL Hx Gastrointestinal Disorders: No - GENITOURINARY/GYNECOLOGICAL Hx Genitourinary Disorders: No - PSYCHIATRIC Hx Substance Use: No - SURGICAL HISTORY Hx Surgeries: Yes Hx Joint Replacement: Yes (right hip and left knee) - ANESTHESIA Hx Anesthesia: Yes Hx Anesthesia Reactions: No Hx Malignant Hyperthermia: No Meds Allergies/Adverse Reactions: Allergies Allergy/AdvReac Type Severity Reaction Status Date / Time No Known Allergies Allergy Verified 09/28/17 19:25 - Medications Medications: Current Medications Acetaminophen (Tylenol 325mg Tab) 650 mg PO Q6 PRN PRN Reason: Headache Albuterol Sulfate (Albuterol 0.083% Inhal Danelle (2.5 Mg/3 Ml) Ud) 2.5 mg INH RQ4 PRN PRN Reason: Shortness of Breath Albuterol/Ipratropium (Duoneb 3 Mg/0.5 Mg (3 Ml) Ud) 3 ml INH RQ6 [facility] Last Admin: 10/01/17 07:44 Dose: 3 ml Atorvastatin Calcium (Lipitor) 10 mg PO DAILY [facility] Last Admin: 10/01/17 09:00 Dose: 10 mg Azithromycin (Zithromax) 250 mg PO DAILY [facility] PRN Reason: Protocol Last Admin: 10/01/17 08:59 Dose: 250 mg Carvedilol (Coreg) 25 mg PO BID [facility] Last Admin: 10/01/17 08:58 Dose: 25 mg Dextrose (Dextrose 50% Inj) 0 ml IV STAT PRN; Protocol PRN Reason: Hypoglycemia Protocol Dextrose (Glutose 15) 0 gm PO ONCE PRN; Protocol PRN Reason: Hypoglycemia Protocol Furosemide (Lasix) 20 mg PO DAILY [facility] Last Admin: 10/01/17 08:59 Dose: 20 mg Glucagon (Glucagen Diagnostic Kit) 0 mg IM STAT PRN; Protocol PRN Reason: Hypoglycemia Protocol Insulin Detemir (Levemir) 22 units SC HS [facility] Last Admin: 09/30/17 21:40 Dose: 22 units Insulin Human Regular (Humulin R) 0 units SC ACHS [facility] PRN Reason: Protocol Last Admin: 10/01/17 06:54 Dose: Not Given Sertraline HCl (Zoloft) 50 mg PO DAILY [facility] Last Admin: 10/01/17 08:59 Dose: 50 mg Sitagliptin Phosphate (Januvia) 25 mg PO DAILY@0800 [facility] Last Admin: 10/01/17 08:58 Dose: 25 mg Vitamin A (Vitamin A&D) 1 applic TP Q8 PRN PRN Reason: Dry skin Last Admin: 09/29/17 16:41 Dose: 1 applic Vitamin D (Vitamin D 400 Intl Units Tab) 400 intlu PO DAILY [facility] Last Admin: 10/01/17 08:57 Dose: 400 intlu Warfarin Sodium (Coumadin) 5 mg PO QD5 [facility] PRN Reason: Protocol Stop: 10/01/17 17:01 Results - Vital Signs Recent Vital Signs: Last Vital Signs Temp 97.0 F L 10/01/17 08:54 Pulse 88 10/01/17 08:58 Resp 20 10/01/17 08:54 BP 131/64 10/01/17 08:59 Pulse Ox 100 10/01/17 08:54 - Labs Labs: Laboratory Results - last 24 hr 09/30/17 09/30/17 09/30/17 10:56 16:38 20:39 PT INR POC Glucose (mg/dL) 242 H 197 H 195 H 10/01/17 07:00 PT 30.7 H D INR 2.7 H D POC Glucose (mg/dL)
--- NOTE | 2017-10-01 12:29 | CP.PCM.PN ---
Subjective - Date & Time of Evaluation Date of Evaluation: 10/01/17 Time of Evaluation: 12:26 - Subjective Subjective: Asleep in her bedside chair. Easily awakens and cooperative with exam. Claims to be feeling relatively well. Tolerated using nasal high flow canula last night without any problems. Slept well overnight. Breath sounds are slightly diminished bilaterally with an occasional faint E wheeze cleared by cough. Will continue with the current regimen and plan on obtaining CPAP for home with nasal pillows at 9cm pressure. Objective - Vital Signs/Intake and Output Vital Signs (last 24 hours): Temp Pulse Resp BP Pulse Ox 97.0 F L 88 20 131/64 100 10/01/17 08:54 10/01/17 08:58 10/01/17 08:54 10/01/17 08:59 10/01/17 08:54 - Medications Medications: Current Medications Acetaminophen (Tylenol 325mg Tab) 650 mg PO Q6 PRN PRN Reason: Headache Albuterol Sulfate (Albuterol 0.083% Inhal Danelle (2.5 Mg/3 Ml) Ud) 2.5 mg INH RQ4 PRN PRN Reason: Shortness of Breath Albuterol/Ipratropium (Duoneb 3 Mg/0.5 Mg (3 Ml) Ud) 3 ml INH RQ6 [facility] Last Admin: 10/01/17 07:44 Dose: 3 ml Atorvastatin Calcium (Lipitor) 10 mg PO DAILY [facility] Last Admin: 10/01/17 09:00 Dose: 10 mg Azithromycin (Zithromax) 250 mg PO DAILY [facility] PRN Reason: Protocol Last Admin: 10/01/17 08:59 Dose: 250 mg Carvedilol (Coreg) 25 mg PO BID [facility] Last Admin: 10/01/17 08:58 Dose: 25 mg Dextrose (Dextrose 50% Inj) 0 ml IV STAT PRN; Protocol PRN Reason: Hypoglycemia Protocol Dextrose (Glutose 15) 0 gm PO ONCE PRN; Protocol PRN Reason: Hypoglycemia Protocol Furosemide (Lasix) 20 mg PO DAILY [facility] Last Admin: 10/01/17 08:59 Dose: 20 mg Glucagon (Glucagen Diagnostic Kit) 0 mg IM STAT PRN; Protocol PRN Reason: Hypoglycemia Protocol Ceftriaxone Sodium 1 gm/ (Sodium Chloride) 100 mls @ 100 mls/hr IVPB DAILY@ 1700 [facility] PRN Reason: Protocol Insulin Detemir (Levemir) 22 units SC HS [facility] Last Admin: 09/30/17 21:40 Dose: 22 units Insulin Human Regular (Humulin R) 0 units SC ACHS [facility] PRN Reason: Protocol Last Admin: 10/01/17 06:54 Dose: Not Given Sertraline HCl (Zoloft) 50 mg PO DAILY [facility] Last Admin: 10/01/17 08:59 Dose: 50 mg Sitagliptin Phosphate (Januvia) 25 mg PO DAILY@0800 [facility] Last Admin: 10/01/17 08:58 Dose: 25 mg Vitamin A (Vitamin A&D) 1 applic TP Q8 PRN PRN Reason: Dry skin Last Admin: 09/29/17 16:41 Dose: 1 applic Vitamin D (Vitamin D 400 Intl Units Tab) 400 intlu PO DAILY [facility] Last Admin: 10/01/17 08:57 Dose: 400 intlu Warfarin Sodium (Coumadin) 5 mg PO QD5 [facility] PRN Reason: Protocol Stop: 10/01/17 17:01 - Labs Labs: PT 30.7 Seconds (9.8-13.1) H D 10/01/17 07:00 INR 2.7 (0.9-1.2) H D 10/01/17 07:00 Assessment and Plan (1) Sleep apnea in adult Status: Chronic
[2017-10-01 12:38] LABS: HEMOGLOBIN 13.3 g/dL (12.0-16.0); MEAN CORPUSCULAR HEMOGLOBIN 30.4 pg (27.0-31.0); MEAN CORPUSCULAR HGB CONC 33.4 g/dL (33.0-37.0); RBC 4.37 Mil/uL (3.80-5.20); RED CELL DISTRIBUTION WIDTH 13.4 % (11.5-14.5); WHITE BLOOD COUNT 5.2 K/uL (4.8-10.8)
--- NOTE | 2017-10-01 16:15 | CP.PCM.PN ---
Subjective - Date & Time of Evaluation Date of Evaluation: 10/01/17 Time of Evaluation: 08:00 - Subjective Subjective: The patient was seen and examined this morning bedside. There are no acute events overnight, NAD. The patient reports breathing better w/ treatment. The patient is declining CPAP. The patient has no other complaints Objective - Vital Signs/Intake and Output Vital Signs (last 24 hours): Temp Pulse Resp BP Pulse Ox 98.1 F 87 20 102/53 L 100 10/01/17 15:57 10/01/17 15:57 10/01/17 15:57 10/01/17 15:57 10/01/17 15:57 - Medications Medications: Current Medications Acetaminophen (Tylenol 325mg Tab) 650 mg PO Q6 PRN PRN Reason: Headache Albuterol Sulfate (Albuterol 0.083% Inhal Danelle (2.5 Mg/3 Ml) Ud) 2.5 mg INH RQ4 PRN PRN Reason: Shortness of Breath Albuterol/Ipratropium (Duoneb 3 Mg/0.5 Mg (3 Ml) Ud) 3 ml INH RQ6 [facility] Last Admin: 10/01/17 13:37 Dose: 3 ml Atorvastatin Calcium (Lipitor) 10 mg PO DAILY [facility] Last Admin: 10/01/17 09:00 Dose: 10 mg Azithromycin (Zithromax) 250 mg PO DAILY [facility] PRN Reason: Protocol Last Admin: 10/01/17 08:59 Dose: 250 mg Carvedilol (Coreg) 25 mg PO BID [facility] Last Admin: 10/01/17 08:58 Dose: 25 mg Dextrose (Dextrose 50% Inj) 0 ml IV STAT PRN; Protocol PRN Reason: Hypoglycemia Protocol Dextrose (Glutose 15) 0 gm PO ONCE PRN; Protocol PRN Reason: Hypoglycemia Protocol Furosemide (Lasix) 20 mg PO DAILY [facility] Last Admin: 10/01/17 08:59 Dose: 20 mg Glucagon (Glucagen Diagnostic Kit) 0 mg IM STAT PRN; Protocol PRN Reason: Hypoglycemia Protocol Ceftriaxone Sodium 1 gm/ (Sodium Chloride) 100 mls @ 100 mls/hr IVPB DAILY@ 1700 [facility] PRN Reason: Protocol Insulin Detemir (Levemir) 22 units SC HS [facility] Last Admin: 09/30/17 21:40 Dose: 22 units Insulin Human Regular (Humulin R) 0 units SC ACHS [facility] PRN Reason: Protocol Last Admin: 10/01/17 12:56 Dose: 4 units Sertraline HCl (Zoloft) 50 mg PO DAILY [facility] Last Admin: 10/01/17 08:59 Dose: 50 mg Sitagliptin Phosphate (Januvia) 25 mg PO DAILY@0800 [facility] Last Admin: 10/01/17 08:58 Dose: 25 mg Vitamin A (Vitamin A&D) 1 applic TP Q8 PRN PRN Reason: Dry skin Last Admin: 09/29/17 16:41 Dose: 1 applic Vitamin D (Vitamin D 400 Intl Units Tab) 400 intlu PO DAILY [facility] Last Admin: 10/01/17 08:57 Dose: 400 intlu Warfarin Sodium (Coumadin) 5 mg PO QD5 [facility] PRN Reason: Protocol Stop: 10/01/17 17:01 - Labs Labs: 10/01/17 11:59 PT 30.7 Seconds (9.8-13.1) H D 10/01/17 07:00 INR 2.7 (0.9-1.2) H D 10/01/17 07:00 - Constitutional Appears: Non-toxic, No Acute Distress - Head Exam Head Exam: ATRAUMATIC, NORMAL INSPECTION, NORMOCEPHALIC - Eye Exam Eye Exam: Normal appearance - ENT Exam ENT Exam: Mucous Membranes Moist - Neck Exam Neck Exam: Full ROM. absent: Tenderness - Respiratory Exam Respiratory Exam: Clear to Ausculation Bilateral, Wheezes. absent: Decreased Breath Sounds, Rales, Rhonchi, Respiratory Distress - Cardiovascular Exam Cardiovascular Exam: REGULAR RHYTHM. absent: Tachycardia - GI/Abdominal Exam GI & Abdominal Exam: Soft, Normal Bowel Sounds. absent: Distended, Tenderness - Extremities Exam Extremities Exam: absent: Calf Tenderness, Pedal Edema, Tenderness Additional comments: stasis dermatitis - Neurological Exam Neurological Exam: Alert, Awake, Oriented x3 - Skin Skin Exam: Dry, Intact, Normal Color, Warm Assessment and Plan - Assessment and Plan (Free Text) Assessment: 81 y/o woman w/ pmh of chronic reduced EF CHF, pacemaker, IDDM2, HTN, and atrial fibrillation presenting with SOB and diarrhea. Admitted to TCU for continued physical therapy Plan: Deconditioning - admit to TCU - physcial therapy consulted, recommendations appreciated - continue PT Short of Breath - improving - Possible 2/2 acute URI, but Cardiac etiology can not be r/o because patient has a significant cardiac history - currently scattered wheeze on exam - NC at 2 L prn - CPAP 9 cm pressure - CXR on admission was unremarkable. Official report showed no active disease - duoneb Q6h mana - albuterol 2.5 mg INH Q4h prn - CXR: no active pulmonary disease - pulmonology consulted, Dr. Guallpa, recommendations appreciated UTI - urine culture return as strep viridans - started on rocephin 1 gm IV daily - ID consulted, Dr. Peña Influenza A - Acute x4 days, afebrile - most likely viral etiology - azithromycin 250 mg PO daily day 6 - Influenza A/B: positive - completed tamiflu (renally dosed, CrCl 46): 30 mg PO BID daily Day 5 - Mucinex DM - Acetaminophen 650 mg PO PRN (normal AST/ALT on admission) - f/u respiratory status Chronic Reduced EF CHF - does not seem to be in exacerbation - no evidence of significant pleural effusion, no LE pedal edema, no crackles on auscultation - c/w Home dose of lasix. Furosemide 20 mg PO BID - c/w Carvedilol 25 mg PO BID - heart healthy diet - pro-BNP on admission 2490 ( could be pt's baseline) - Echo on 10/20/16 reported as severely reduced LVEF 20-25 %, global hypokinesis - cardiology consulted, Dr. Farias, recommendations appreciated H/O A Fib - Pacemaker, Paced rhythm - Controlled - c/w Carvedilol - On Coumadin 6 mg daily as per patient and family report, confirmed / Pharmacy - INR 2.7 - warfarin 5 mg PO ordered - f/u INR Diabetes Mellitus type 2 - c/w Accuchek - resume home Januvia 25 mg QD (renal adjusted) - resume Levemir 22 units at bedtime ( as per pt report and old records) - insulin Lispro before meals per protocol. Low dose for now - Hypoglycemic protocol - Diabetic diet CKD stage 3 - On ergocalciferol 50,000 unit weekly - normal potassium, stable BUN/Cr Diet - heart healthy and diabetic Prophylactic measures - DVT: On anticoagulant Coumadin 6 mg PO daily, 5 mg PO ordered for today
--- NOTE | 2017-10-01 19:44 | CP.PCM.PN ---
Subjective - Date & Time of Evaluation Date of Evaluation: 10/01/17 Time of Evaluation: 19:44 - Subjective Subjective: I D NOTE CHART REVIEWED AGREE C PRESENT TREATMENT FULL CONSULT TO FOLLOW Objective - Vital Signs/Intake and Output Vital Signs (last 24 hours): Temp Pulse Resp BP Pulse Ox 98.1 F 87 20 102/53 L 100 10/01/17 15:57 10/01/17 17:14 10/01/17 15:57 10/01/17 17:14 10/01/17 15:57 - Medications Medications: Current Medications Acetaminophen (Tylenol 325mg Tab) 650 mg PO Q6 PRN PRN Reason: Headache Albuterol Sulfate (Albuterol 0.083% Inhal Danelle (2.5 Mg/3 Ml) Ud) 2.5 mg INH RQ4 PRN PRN Reason: Shortness of Breath Albuterol/Ipratropium (Duoneb 3 Mg/0.5 Mg (3 Ml) Ud) 3 ml INH RQ6 [facility] Last Admin: 10/01/17 13:37 Dose: 3 ml Atorvastatin Calcium (Lipitor) 10 mg PO DAILY [facility] Last Admin: 10/01/17 09:00 Dose: 10 mg Azithromycin (Zithromax) 250 mg PO DAILY [facility] PRN Reason: Protocol Last Admin: 10/01/17 08:59 Dose: 250 mg Carvedilol (Coreg) 25 mg PO BID [facility] Last Admin: 10/01/17 17:14 Dose: 25 mg Dextrose (Dextrose 50% Inj) 0 ml IV STAT PRN; Protocol PRN Reason: Hypoglycemia Protocol Dextrose (Glutose 15) 0 gm PO ONCE PRN; Protocol PRN Reason: Hypoglycemia Protocol Furosemide (Lasix) 20 mg PO DAILY [facility] Last Admin: 10/01/17 08:59 Dose: 20 mg Glucagon (Glucagen Diagnostic Kit) 0 mg IM STAT PRN; Protocol PRN Reason: Hypoglycemia Protocol Ceftriaxone Sodium 1 gm/ (Sodium Chloride) 100 mls @ 100 mls/hr IVPB DAILY@ 1700 [facility] PRN Reason: Protocol Last Admin: 10/01/17 17:16 Dose: 100 mls/hr Insulin Detemir (Levemir) 22 units SC HS [facility] Last Admin: 09/30/17 21:40 Dose: 22 units Insulin Human Regular (Humulin R) 0 units SC ACHS [facility] PRN Reason: Protocol Last Admin: 10/01/17 17:15 Dose: 3 units Sertraline HCl (Zoloft) 50 mg PO DAILY [facility] Last Admin: 10/01/17 08:59 Dose: 50 mg Sitagliptin Phosphate (Januvia) 25 mg PO DAILY@0800 [facility] Last Admin: 10/01/17 08:58 Dose: 25 mg Vitamin A (Vitamin A&D) 1 applic TP Q8 PRN PRN Reason: Dry skin Last Admin: 09/29/17 16:41 Dose: 1 applic Vitamin D (Vitamin D 400 Intl Units Tab) 400 intlu PO DAILY [facility] Last Admin: 10/01/17 08:57 Dose: 400 intlu - Labs Labs: 10/01/17 11:59 PT 30.7 Seconds (9.8-13.1) H D 10/01/17 07:00 INR 2.7 (0.9-1.2) H D 10/01/17 07:00
[2017-10-01] MEDS: Insulin Detemir 100 Units/ml Inj SC SCH (21:40)
[2017-10-02] MEDS: Albuterol-Ipratrop 3 mg / 0.5 (3 ml) UD INH SCH ×4 (01:05→19:10)
[2017-10-02] MEDS: Insulin Regular 100 units/ml SC SCH ×4 (06:53→21:17)
[2017-10-02 08:16] LABS: CALCIUM 8.9 mg/dL (8.4-10.2)
[2017-10-02] MEDS: Cholecalciferol 400 Intl Units Tab PO SCH (08:21)
[2017-10-02 08:29] LABS: INR 2.7 (0.9-1.2); PROTHROMBIN TIME 30.1 Seconds (9.8-13.1)
[2017-10-02] MEDS: Insulin Detemir 100 Units/ml Inj SC SCH (21:16)
[2017-10-03] MEDS: Albuterol-Ipratrop 3 mg / 0.5 (3 ml) UD INH SCH ×4 (00:59→19:25)
[2017-10-03] MEDS: Insulin Regular 100 units/ml SC SCH ×4 (06:33→21:21)
[2017-10-03 06:59] LABS: INR 3.2 (0.9-1.2)
[2017-10-03] MEDS: Cholecalciferol 400 Intl Units Tab PO SCH (08:00)
--- NOTE | 2017-10-03 09:26 | CP.PCM.PN ---
Subjective - Date & Time of Evaluation Date of Evaluation: 10/03/17 Time of Evaluation: 08:35 - Subjective Subjective: Has had a comfortable night Sitting OOB in a chair Has been walking to the BR with a walker Chest clear, minimal wheez+ Minimal pedal oedema+ Stable from cardiac point of view. Objective - Vital Signs/Intake and Output Vital Signs (last 24 hours): Temp Pulse Resp BP Pulse Ox 97.8 F 90 20 114/66 99 10/03/17 08:02 10/03/17 08:03 10/03/17 08:02 10/03/17 08:03 10/03/17 08:02 - Medications Medications: Current Medications Acetaminophen (Tylenol 325mg Tab) 650 mg PO Q6 PRN PRN Reason: Headache Albuterol Sulfate (Albuterol 0.083% Inhal Danelle (2.5 Mg/3 Ml) Ud) 2.5 mg INH RQ4 PRN PRN Reason: Shortness of Breath Albuterol/Ipratropium (Duoneb 3 Mg/0.5 Mg (3 Ml) Ud) 3 ml INH RQ6 [facility] Last Admin: 10/03/17 08:20 Dose: 3 ml Atorvastatin Calcium (Lipitor) 10 mg PO DAILY [facility] Last Admin: 10/03/17 08:04 Dose: 10 mg Azithromycin (Zithromax) 250 mg PO DAILY [facility] PRN Reason: Protocol Last Admin: 10/03/17 08:00 Dose: 250 mg Carvedilol (Coreg) 25 mg PO BID [facility] Last Admin: 10/03/17 08:03 Dose: 25 mg Dextrose (Dextrose 50% Inj) 0 ml IV STAT PRN; Protocol PRN Reason: Hypoglycemia Protocol Dextrose (Glutose 15) 0 gm PO ONCE PRN; Protocol PRN Reason: Hypoglycemia Protocol Furosemide (Lasix) 20 mg PO DAILY [facility] Last Admin: 10/03/17 08:03 Dose: 20 mg Glucagon (Glucagen Diagnostic Kit) 0 mg IM STAT PRN; Protocol PRN Reason: Hypoglycemia Protocol Ceftriaxone Sodium 1 gm/ (Sodium Chloride) 100 mls @ 100 mls/hr IVPB DAILY@ 1700 [facility] PRN Reason: Protocol Last Admin: 10/02/17 16:40 Dose: 100 mls/hr Insulin Detemir (Levemir) 22 units SC HS [facility] Last Admin: 10/02/17 21:16 Dose: 22 units Insulin Human Regular (Humulin R) 0 units SC ACHS [facility] PRN Reason: Protocol Last Admin: 10/03/17 06:33 Dose: Not Given Sertraline HCl (Zoloft) 50 mg PO DAILY [facility] Last Admin: 10/03/17 08:00 Dose: 50 mg Sitagliptin Phosphate (Januvia) 25 mg PO DAILY@0800 [facility] Last Admin: 10/03/17 08:00 Dose: 25 mg Vitamin A (Vitamin A&D) 1 applic TP Q8 PRN PRN Reason: Dry skin Last Admin: 09/29/17 16:41 Dose: 1 applic Vitamin D (Vitamin D 400 Intl Units Tab) 400 intlu PO DAILY [facility] Last Admin: 10/03/17 08:00 Dose: 400 intlu - Labs Labs: 10/01/17 11:59 10/02/17 07:05 PT 36.0 Seconds (9.8-13.1) H D 10/03/17 05:30 INR 3.2 (0.9-1.2) H 10/03/17 05:30
--- NOTE | 2017-10-03 10:14 | CP.PCM.PN ---
<Timur Galvez - Last Filed: 10/03/17 13:36> Subjective - Date & Time of Evaluation Date of Evaluation: 10/03/17 Time of Evaluation: 07:35 - Subjective Subjective: The patient was seen and examined this morning bedside. There are no acute events overnight, NAD. The patient reports breathing better w/ high flow nasal cannula at night. The patient is partciipating w/ physical therapy. The patient has no other complaints Objective - Vital Signs/Intake and Output Vital Signs (last 24 hours): Temp Pulse Resp BP Pulse Ox 97.8 F 90 20 114/66 99 10/03/17 08:02 10/03/17 08:03 10/03/17 08:02 10/03/17 08:03 10/03/17 08:02 - Medications Medications: Current Medications Acetaminophen (Tylenol 325mg Tab) 650 mg PO Q6 PRN PRN Reason: Headache Albuterol Sulfate (Albuterol 0.083% Inhal Danelle (2.5 Mg/3 Ml) Ud) 2.5 mg INH RQ4 PRN PRN Reason: Shortness of Breath Albuterol/Ipratropium (Duoneb 3 Mg/0.5 Mg (3 Ml) Ud) 3 ml INH RQ6 [facility] Last Admin: 10/03/17 08:20 Dose: 3 ml Atorvastatin Calcium (Lipitor) 10 mg PO DAILY [facility] Last Admin: 10/03/17 08:04 Dose: 10 mg Azithromycin (Zithromax) 250 mg PO DAILY [facility] PRN Reason: Protocol Last Admin: 10/03/17 08:00 Dose: 250 mg Carvedilol (Coreg) 25 mg PO BID [facility] Last Admin: 10/03/17 08:03 Dose: 25 mg Dextrose (Dextrose 50% Inj) 0 ml IV STAT PRN; Protocol PRN Reason: Hypoglycemia Protocol Dextrose (Glutose 15) 0 gm PO ONCE PRN; Protocol PRN Reason: Hypoglycemia Protocol Furosemide (Lasix) 20 mg PO DAILY [facility] Last Admin: 10/03/17 08:03 Dose: 20 mg Glucagon (Glucagen Diagnostic Kit) 0 mg IM STAT PRN; Protocol PRN Reason: Hypoglycemia Protocol Ceftriaxone Sodium 1 gm/ (Sodium Chloride) 100 mls @ 100 mls/hr IVPB DAILY@ 1700 [facility] PRN Reason: Protocol Last Admin: 10/02/17 16:40 Dose: 100 mls/hr Insulin Detemir (Levemir) 22 units SC HS [facility] Last Admin: 10/02/17 21:16 Dose: 22 units Insulin Human Regular (Humulin R) 0 units SC [facility] PRN Reason: Protocol Last Admin: 10/03/17 06:33 Dose: Not Given Sertraline HCl (Zoloft) 50 mg PO DAILY [facility] Last Admin: 10/03/17 08:00 Dose: 50 mg Sitagliptin Phosphate (Januvia) 25 mg PO DAILY@0800 [facility] Last Admin: 10/03/17 08:00 Dose: 25 mg Vitamin A (Vitamin A&D) 1 applic TP Q8 PRN PRN Reason: Dry skin Last Admin: 09/29/17 16:41 Dose: 1 applic Vitamin D (Vitamin D 400 Intl Units Tab) 400 intlu PO DAILY [facility] Last Admin: 10/03/17 08:00 Dose: 400 intlu - Labs Labs: 10/01/17 11:59 10/02/17 07:05 PT 36.0 Seconds (9.8-13.1) H D 10/03/17 05:30 INR 3.2 (0.9-1.2) H 10/03/17 05:30 - Constitutional Appears: No Acute Distress - Head Exam Head Exam: ATRAUMATIC, NORMAL INSPECTION, NORMOCEPHALIC - Eye Exam Eye Exam: Normal appearance - ENT Exam ENT Exam: Mucous Membranes Moist - Neck Exam Neck Exam: Full ROM. absent: Tenderness - Respiratory Exam Respiratory Exam: Wheezes. absent: Decreased Breath Sounds, Rales, Rhonchi, Respiratory Distress Additional comments: mild scattered wheeze in lower lobes - Cardiovascular Exam Cardiovascular Exam: REGULAR RHYTHM. absent: Tachycardia Additional comments: systolic murmur - GI/Abdominal Exam GI & Abdominal Exam: Soft, Normal Bowel Sounds. absent: Distended, Tenderness - Extremities Exam Extremities Exam: absent: Calf Tenderness, Pedal Edema, Tenderness Additional comments: chronic varicose veins bilaterally - Neurological Exam Neurological Exam: Alert, Awake, Oriented x3 - Skin Skin Exam: Dry Assessment and Plan - Assessment and Plan (Free Text) Assessment: 81 y/o woman w/ pmh of chronic reduced EF CHF, pacemaker, IDDM2, HTN, and atrial fibrillation presenting with SOB and diarrhea. Admitted to TCU for continued physical therapy Plan: Deconditioning - admit to TCU - physcial therapy consulted, recommendations appreciated - continue PT Short of Breath - improving - Possible 2/2 acute URI, but Cardiac etiology can not be r/o because patient has a significant cardiac history - currently mild scattered wheeze on exam - NC at 2 L prn - high flow nasal cannula at night - CPAP w/ nasal pillows at 9 cm pressure for home when discharged - CXR on admission was unremarkable. Official report showed no active disease - duoneb Q6h mana - albuterol 2.5 mg INH Q4h prn - CXR: no active pulmonary disease - pulmonology consulted, Dr. Guallpa, recommendations appreciated UTI - urine culture return as strep viridans - rocephin 1 gm IV daily Day 3 - ID consulted, Dr. Peña, recommendations appreciated Influenza A - Acute x4 days, afebrile - most likely viral etiology - DC'ed azithromycin 250 mg PO daily day 7 - Influenza A/B: positive - completed tamiflu (renally dosed, CrCl 46): 30 mg PO BID daily Day 5 - Mucinex DM - Acetaminophen 650 mg PO PRN (normal AST/ALT on admission) - f/u respiratory status Chronic Reduced EF CHF - does not seem to be in exacerbation - no evidence of significant pleural effusion, no LE pedal edema, no crackles on auscultation - c/w Home dose of lasix. Furosemide 20 mg PO BID - c/w Carvedilol 25 mg PO BID - heart healthy diet - pro-BNP on admission 2490 ( could be pt's baseline) - Echo on 10/20/16 reported as severely reduced LVEF 20-25 %, global hypokinesis - cardiology consulted, Dr. Farias, recommendations appreciated H/O A Fib - Pacemaker, Paced rhythm - Controlled - c/w Carvedilol - On Coumadin 6 mg daily as per patient and family report, confirmed w/ [facility] - INR 3.2 - warfarin held - f/u INR Diabetes Mellitus type 2 - c/w Accuchek - resume home Januvia 25 mg QD (renal adjusted) - resume Levemir 22 units at bedtime ( as per pt report and old records) - insulin Lispro before meals per protocol. Low dose for now - Hypoglycemic protocol - Diabetic diet CKD stage 3 - On ergocalciferol 50,000 unit weekly - normal potassium, stable BUN/Cr Diet - heart healthy and diabetic Prophylactic measures - DVT: On anticoagulant Coumadin 6 mg PO daily, held today due to supratherapeutic INR <Julien Oates - Last Filed: 10/04/17 13:23> Objective - Vital Signs/Intake and Output Vital Signs (last 24 hours): Temp Pulse Resp BP Pulse Ox 97.9 F 90 18 131/72 98 10/04/17 07:48 10/04/17 07:48 10/04/17 07:48 10/04/17 10:33 10/04/17 10:33 - Medications Medications: Current Medications Acetaminophen (Tylenol 325mg Tab) 650 mg PO Q6 PRN PRN Reason: Headache Albuterol Sulfate (Albuterol 0.083% Inhal Danelle (2.5 Mg/3 Ml) Ud) 2.5 mg INH RQ4 PRN PRN Reason: Shortness of Breath Albuterol/Ipratropium (Duoneb 3 Mg/0.5 Mg (3 Ml) Ud) 3 ml INH RQ6 [facility] Last Admin: 10/04/17 13:07 Dose: 3 ml Atorvastatin Calcium (Lipitor) 10 mg PO DAILY [facility] Last Admin: 10/04/17 08:06 Dose: 10 mg Carvedilol (Coreg) 25 mg PO BID [facility] Last Admin: 10/04/17 08:05 Dose: 25 mg Dextrose (Dextrose 50% Inj) 0 ml IV STAT PRN; Protocol PRN Reason: Hypoglycemia Protocol Dextrose (Glutose 15) 0 gm PO ONCE PRN; Protocol PRN Reason: Hypoglycemia Protocol Furosemide (Lasix) 20 mg PO DAILY [facility] Last Admin: 10/04/17 08:04 Dose: 20 mg Glucagon (Glucagen Diagnostic Kit) 0 mg IM STAT PRN; Protocol PRN Reason: Hypoglycemia Protocol Ceftriaxone Sodium 1 gm/ (Sodium Chloride) 100 mls @ 100 mls/hr IVPB DAILY@ 1700 [facility] PRN Reason: Protocol Last Admin: 10/03/17 16:45 Dose: 100 mls/hr Insulin Detemir (Levemir) 22 units SC HS [facility] Last Admin: 10/03/17 21:24 Dose: 22 units Insulin Human Regular (Humulin R) 0 units SC [facility] PRN Reason: Protocol Last Admin: 10/04/17 11:22 Dose: 2 units Sertraline HCl (Zoloft) 50 mg PO DAILY [facility] Last Admin: 10/04/17 08:05 Dose: 50 mg Sitagliptin Phosphate (Januvia) 25 mg PO DAILY@0800 [facility] Last Admin: 10/04/17 08:04 Dose: 25 mg Vitamin A (Vitamin A&D) 1 applic TP Q8 PRN PRN Reason: Dry skin Last Admin: 09/29/17 16:41 Dose: 1 applic Vitamin D (Vitamin D 400 Intl Units Tab) 400 intlu PO DAILY [facility] Last Admin: 10/04/17 08:04 Dose: 400 intlu Warfarin Sodium (Coumadin) 4 mg PO QD5 [facility] PRN Reason: Protocol Stop: 10/04/17 17:01 - Labs Labs: 10/01/17 11:59 10/02/17 07:05 PT 32.9 Seconds (9.8-13.1) H 10/04/17 05:40 INR 2.9 (0.9-1.2) H 10/04/17 05:40 Attending/Attestation - Attestation I have personally seen and examined this patient.: Yes I have fully participated in the care of the patient.: Yes I have reviewed all pertinent clinical information, including history, physical exam and plan: Yes
--- NOTE | 2017-10-03 11:27 | CP.PCM.PN ---
Subjective - Date & Time of Evaluation Date of Evaluation: 10/03/17 Time of Evaluation: 11:26 - Subjective Subjective: Appears to be doing well using high flow nasal cannula at night. We'll request nasal CPAP using nasal pillows at 9 cm of water pressure for home use. Objective - Vital Signs/Intake and Output Vital Signs (last 24 hours): Temp Pulse Resp BP Pulse Ox 97.8 F 90 20 114/66 99 10/03/17 08:02 10/03/17 08:03 10/03/17 08:02 10/03/17 08:03 10/03/17 08:02 - Medications Medications: Current Medications Acetaminophen (Tylenol 325mg Tab) 650 mg PO Q6 PRN PRN Reason: Headache Albuterol Sulfate (Albuterol 0.083% Inhal Danelle (2.5 Mg/3 Ml) Ud) 2.5 mg INH RQ4 PRN PRN Reason: Shortness of Breath Albuterol/Ipratropium (Duoneb 3 Mg/0.5 Mg (3 Ml) Ud) 3 ml INH RQ6 [facility] Last Admin: 10/03/17 08:20 Dose: 3 ml Atorvastatin Calcium (Lipitor) 10 mg PO DAILY [facility] Last Admin: 10/03/17 08:04 Dose: 10 mg Carvedilol (Coreg) 25 mg PO BID [facility] Last Admin: 10/03/17 08:03 Dose: 25 mg Dextrose (Dextrose 50% Inj) 0 ml IV STAT PRN; Protocol PRN Reason: Hypoglycemia Protocol Dextrose (Glutose 15) 0 gm PO ONCE PRN; Protocol PRN Reason: Hypoglycemia Protocol Furosemide (Lasix) 20 mg PO DAILY [facility] Last Admin: 10/03/17 08:03 Dose: 20 mg Glucagon (Glucagen Diagnostic Kit) 0 mg IM STAT PRN; Protocol PRN Reason: Hypoglycemia Protocol Ceftriaxone Sodium 1 gm/ (Sodium Chloride) 100 mls @ 100 mls/hr IVPB DAILY@ 1700 [facility] PRN Reason: Protocol Last Admin: 10/02/17 16:40 Dose: 100 mls/hr Insulin Detemir (Levemir) 22 units SC HS [facility] Last Admin: 10/02/17 21:16 Dose: 22 units Insulin Human Regular (Humulin R) 0 units SC [facility] PRN Reason: Protocol Last Admin: 10/03/17 06:33 Dose: Not Given Sertraline HCl (Zoloft) 50 mg PO DAILY [facility] Last Admin: 10/03/17 08:00 Dose: 50 mg Sitagliptin Phosphate (Januvia) 25 mg PO DAILY@0800 [facility] Last Admin: 10/03/17 08:00 Dose: 25 mg Vitamin A (Vitamin A&D) 1 applic TP Q8 PRN PRN Reason: Dry skin Last Admin: 09/29/17 16:41 Dose: 1 applic Vitamin D (Vitamin D 400 Intl Units Tab) 400 intlu PO DAILY [facility] Last Admin: 10/03/17 08:00 Dose: 400 intlu - Labs Labs: 10/01/17 11:59 10/02/17 07:05 PT 36.0 Seconds (9.8-13.1) H D 10/03/17 05:30 INR 3.2 (0.9-1.2) H 10/03/17 05:30 Assessment and Plan (1) Sleep apnea in adult Status: Chronic
[2017-10-03] MEDS: Insulin Detemir 100 Units/ml Inj SC SCH (21:24)
--- NOTE | 2017-10-03 23:06 | CP.PCM.PN ---
Subjective - Date & Time of Evaluation Date of Evaluation: 10/03/17 Time of Evaluation: 23:04 - Subjective Subjective: I D NOTE HAVE REVIEWED AGAIN AND WOULD RX FOR FOR AT LEAST 7 DAYS TO 19 DAYS OF IV ANTIBIOTICS Objective - Vital Signs/Intake and Output Vital Signs (last 24 hours): Temp Pulse Resp BP Pulse Ox 98.3 F 84 20 110/57 L 100 10/03/17 19:49 10/03/17 19:49 10/03/17 19:49 10/03/17 19:49 10/03/17 19:49 - Medications Medications: Current Medications Acetaminophen (Tylenol 325mg Tab) 650 mg PO Q6 PRN PRN Reason: Headache Albuterol Sulfate (Albuterol 0.083% Inhal Danelle (2.5 Mg/3 Ml) Ud) 2.5 mg INH RQ4 PRN PRN Reason: Shortness of Breath Albuterol/Ipratropium (Duoneb 3 Mg/0.5 Mg (3 Ml) Ud) 3 ml INH RQ6 [facility] Last Admin: 10/03/17 19:25 Dose: 3 ml Atorvastatin Calcium (Lipitor) 10 mg PO DAILY [facility] Last Admin: 10/03/17 08:04 Dose: 10 mg Carvedilol (Coreg) 25 mg PO BID [facility] Last Admin: 10/03/17 16:46 Dose: 25 mg Dextrose (Dextrose 50% Inj) 0 ml IV STAT PRN; Protocol PRN Reason: Hypoglycemia Protocol Dextrose (Glutose 15) 0 gm PO ONCE PRN; Protocol PRN Reason: Hypoglycemia Protocol Furosemide (Lasix) 20 mg PO DAILY [facility] Last Admin: 10/03/17 08:03 Dose: 20 mg Glucagon (Glucagen Diagnostic Kit) 0 mg IM STAT PRN; Protocol PRN Reason: Hypoglycemia Protocol Ceftriaxone Sodium 1 gm/ (Sodium Chloride) 100 mls @ 100 mls/hr IVPB DAILY@ 1700 [facility] PRN Reason: Protocol Last Admin: 10/03/17 16:45 Dose: 100 mls/hr Insulin Detemir (Levemir) 22 units SC HS [facility] Last Admin: 10/03/17 21:24 Dose: 22 units Insulin Human Regular (Humulin R) 0 units SC [facility] PRN Reason: Protocol Last Admin: 10/03/17 21:21 Dose: Not Given Sertraline HCl (Zoloft) 50 mg PO DAILY [facility] Last Admin: 10/03/17 08:00 Dose: 50 mg Sitagliptin Phosphate (Januvia) 25 mg PO DAILY@0800 [facility] Last Admin: 10/03/17 08:00 Dose: 25 mg Vitamin A (Vitamin A&D) 1 applic TP Q8 PRN PRN Reason: Dry skin Last Admin: 09/29/17 16:41 Dose: 1 applic Vitamin D (Vitamin D 400 Intl Units Tab) 400 intlu PO DAILY [facility] Last Admin: 10/03/17 08:00 Dose: 400 intlu - Labs Labs: 10/01/17 11:59 10/02/17 07:05 PT 36.0 Seconds (9.8-13.1) H D 10/03/17 05:30 INR 3.2 (0.9-1.2) H 10/03/17 05:30
[2017-10-04] MEDS: Albuterol-Ipratrop 3 mg / 0.5 (3 ml) UD INH SCH ×4 (01:21→19:27)
[2017-10-04] MEDS: Insulin Regular 100 units/ml SC SCH ×4 (06:31→21:23)
[2017-10-04 06:33] LABS: INR 2.9 (0.9-1.2); PROTHROMBIN TIME 32.9 Seconds (9.8-13.1)
[2017-10-04] MEDS: Cholecalciferol 400 Intl Units Tab PO SCH (08:04)
--- NOTE | 2017-10-04 08:32 | CP.PCM.PN ---
<Timur Galvez - Last Filed: 10/04/17 12:40> Subjective - Date & Time of Evaluation Date of Evaluation: 10/04/17 Time of Evaluation: 07:10 - Subjective Subjective: The patient was seen and examined this morning bedside. There are no acute events overnight, NAD. The patient reports breathing better w/ high flow nasal cannula at night. The patient is participating w/ physical therapy. The patient reports mild dysuria Objective - Vital Signs/Intake and Output Vital Signs (last 24 hours): Temp Pulse Resp BP Pulse Ox 97.9 F 90 18 131/72 98 10/04/17 07:48 10/04/17 07:48 10/04/17 07:48 10/04/17 08:05 10/04/17 07:48 - Medications Medications: Current Medications Acetaminophen (Tylenol 325mg Tab) 650 mg PO Q6 PRN PRN Reason: Headache Albuterol Sulfate (Albuterol 0.083% Inhal Danelle (2.5 Mg/3 Ml) Ud) 2.5 mg INH RQ4 PRN PRN Reason: Shortness of Breath Albuterol/Ipratropium (Duoneb 3 Mg/0.5 Mg (3 Ml) Ud) 3 ml INH RQ6 [facility] Last Admin: 10/04/17 08:17 Dose: 3 ml Atorvastatin Calcium (Lipitor) 10 mg PO DAILY [facility] Last Admin: 10/04/17 08:06 Dose: 10 mg Carvedilol (Coreg) 25 mg PO BID [facility] Last Admin: 10/04/17 08:05 Dose: 25 mg Dextrose (Dextrose 50% Inj) 0 ml IV STAT PRN; Protocol PRN Reason: Hypoglycemia Protocol Dextrose (Glutose 15) 0 gm PO ONCE PRN; Protocol PRN Reason: Hypoglycemia Protocol Furosemide (Lasix) 20 mg PO DAILY [facility] Last Admin: 10/04/17 08:04 Dose: 20 mg Glucagon (Glucagen Diagnostic Kit) 0 mg IM STAT PRN; Protocol PRN Reason: Hypoglycemia Protocol Ceftriaxone Sodium 1 gm/ (Sodium Chloride) 100 mls @ 100 mls/hr IVPB DAILY@ 1700 [facility] PRN Reason: Protocol Last Admin: 10/03/17 16:45 Dose: 100 mls/hr Insulin Detemir (Levemir) 22 units SC HS [facility] Last Admin: 10/03/17 21:24 Dose: 22 units Insulin Human Regular (Humulin R) 0 units SC ACHS [facility] PRN Reason: Protocol Last Admin: 10/04/17 06:31 Dose: Not Given Sertraline HCl (Zoloft) 50 mg PO DAILY [facility] Last Admin: 10/04/17 08:05 Dose: 50 mg Sitagliptin Phosphate (Januvia) 25 mg PO DAILY@0800 [facility] Last Admin: 10/04/17 08:04 Dose: 25 mg Vitamin A (Vitamin A&D) 1 applic TP Q8 PRN PRN Reason: Dry skin Last Admin: 09/29/17 16:41 Dose: 1 applic Vitamin D (Vitamin D 400 Intl Units Tab) 400 intlu PO DAILY [facility] Last Admin: 10/04/17 08:04 Dose: 400 intlu - Labs Labs: 10/01/17 11:59 10/02/17 07:05 PT 32.9 Seconds (9.8-13.1) H 10/04/17 05:40 INR 2.9 (0.9-1.2) H 10/04/17 05:40 - Constitutional Appears: No Acute Distress - Head Exam Head Exam: ATRAUMATIC, NORMAL INSPECTION, NORMOCEPHALIC - Eye Exam Eye Exam: Normal appearance - ENT Exam ENT Exam: Mucous Membranes Moist - Neck Exam Neck Exam: Full ROM. absent: Tenderness - Respiratory Exam Respiratory Exam: Clear to Ausculation Bilateral. absent: Decreased Breath Sounds, Rales, Rhonchi, Wheezes, Respiratory Distress Additional comments: on high flow nasal cannula - Cardiovascular Exam Cardiovascular Exam: REGULAR RHYTHM. absent: Tachycardia - GI/Abdominal Exam GI & Abdominal Exam: Soft, Normal Bowel Sounds. absent: Distended, Tenderness - Extremities Exam Extremities Exam: absent: Calf Tenderness, Pedal Edema, Tenderness Additional comments: chronic venous insufficiency, chronic bilateral varicose veins, minimal pedal edema - Neurological Exam Neurological Exam: Alert, Awake, Oriented x3 - Skin Skin Exam: Dry, Intact, Normal Color, Warm Assessment and Plan - Assessment and Plan (Free Text) Assessment: 81 y/o woman w/ pmh of chronic reduced EF CHF, pacemaker, IDDM2, HTN, and atrial fibrillation presenting with SOB and diarrhea. Admitted to TCU for continued physical therapy Plan: Deconditioning - admit to TCU - physcial therapy consulted, recommendations appreciated - continue PT Short of Breath - improving - Possible 2/2 acute URI, but Cardiac etiology can not be r/o because patient has a significant cardiac history - currently mild scattered wheeze on exam - NC at 2 L prn - high flow nasal cannula at night - CPAP w/ nasal pillows at 9 cm pressure for home when discharged - CXR on admission was unremarkable. Official report showed no active disease - duoneb Q6h mana - albuterol 2.5 mg INH Q4h prn - CXR: no active pulmonary disease - pulmonology consulted, Dr. Guallpa, recommendations appreciated UTI - patient reports minimal dysuria - urine culture return as strep viridans - rocephin 1 gm IV daily Day 4 - ID consulted, Dr. Peña, recommendations appreciated Influenza A - Influenza A/B: positive - completed tamiflu (renally dosed, CrCl 46): 30 mg PO BID daily Day 5 - Mucinex DM - Acetaminophen 650 mg PO PRN (normal AST/ALT on admission) - f/u respiratory status Chronic Reduced EF CHF - does not seem to be in exacerbation - no evidence of significant pleural effusion, no LE pedal edema, no crackles on auscultation - c/w Home dose of lasix. Furosemide 20 mg PO BID - c/w Carvedilol 25 mg PO BID - heart healthy diet - pro-BNP on admission 2490 ( could be pt's baseline) - Echo on 10/20/16 reported as severely reduced LVEF 20-25 %, global hypokinesis - cardiology consulted, Dr. Farias, recommendations appreciated H/O A Fib - Pacemaker, Paced rhythm - Controlled - c/w Carvedilol - On Coumadin 6 mg daily as per patient and family report, confirmed w/ Pharmacy - INR 2.9 - warfarin 4 mg PO ordered for today - f/u INR Diabetes Mellitus type 2 - c/w Accuchek - resume home Januvia 25 mg QD (renal adjusted) - resume Levemir 22 units at bedtime ( as per pt report and old records) - insulin Lispro before meals per protocol. Low dose for now - Hypoglycemic protocol - Diabetic diet CKD stage 3 - On ergocalciferol 50,000 unit weekly - normal potassium, stable BUN/Cr Diet - heart healthy and diabetic Prophylactic measures - DVT: On anticoagulant Coumadin 6 mg PO daily, warfarin 4 mg PO ordered for today <Salvador Obando - Last Filed: 10/06/17 06:43> Objective - Vital Signs/Intake and Output Vital Signs (last 24 hours): Temp Pulse Resp BP Pulse Ox 99.1 F 84 22 119/59 L 100 10/05/17 17:00 10/05/17 17:00 10/06/17 04:50 10/05/17 17:00 10/05/17 17:00 - Medications Medications: Current Medications Acetaminophen (Tylenol 325mg Tab) 650 mg PO Q6 PRN PRN Reason: Headache Albuterol Sulfate (Albuterol 0.083% Inhal Danelle (2.5 Mg/3 Ml) Ud) 2.5 mg INH RQ4 PRN PRN Reason: Shortness of Breath Albuterol/Ipratropium (Duoneb 3 Mg/0.5 Mg (3 Ml) Ud) 3 ml INH RQ6 [facility] Last Admin: 10/06/17 01:08 Dose: Not Given Atorvastatin Calcium (Lipitor) 10 mg PO DAILY [facility] Last Admin: 10/05/17 08:44 Dose: 10 mg Carvedilol (Coreg) 25 mg PO BID [facility] Last Admin: 10/05/17 17:00 Dose: 25 mg Dextrose (Dextrose 50% Inj) 0 ml IV STAT PRN; Protocol PRN Reason: Hypoglycemia Protocol Dextrose (Glutose 15) 0 gm PO ONCE PRN; Protocol PRN Reason: Hypoglycemia Protocol Furosemide (Lasix) 20 mg PO DAILY [facility] Last Admin: 10/05/17 08:44 Dose: 20 mg Glucagon (Glucagen Diagnostic Kit) 0 mg IM STAT PRN; Protocol PRN Reason: Hypoglycemia Protocol Ceftriaxone Sodium 1 gm/ (Sodium Chloride) 100 mls @ 100 mls/hr IVPB DAILY@ 1700 [facility] PRN Reason: Protocol Last Admin: 10/05/17 16:58 Dose: 100 mls/hr Insulin Detemir (Levemir) 22 units SC HS [facility] Last Admin: 10/05/17 21:12 Dose: 22 units Insulin Human Regular (Humulin R) 0 units SC ACHS [facility] PRN Reason: Protocol Last Admin: 10/06/17 06:34 Dose: 2 units Sertraline HCl (Zoloft) 50 mg PO DAILY [facility] Last Admin: 10/05/17 08:44 Dose: 50 mg Sitagliptin Phosphate (Januvia) 25 mg PO DAILY@0800 [facility] Last Admin: 10/05/17 08:44 Dose: 25 mg Vitamin A (Vitamin A&D) 1 applic TP Q8 PRN PRN Reason: Dry skin Last Admin: 09/29/17 16:41 Dose: 1 applic Vitamin D (Vitamin D 400 Intl Units Tab) 400 intlu PO DAILY [facility] Last Admin: 10/05/17 08:44 Dose: 400 intlu - Labs Labs: 10/06/17 04:30 10/02/17 07:05 PT 27.4 Seconds (9.8-13.1) H 10/06/17 04:30 INR 2.4 (0.9-1.2) H 10/06/17 04:30 Attending/Attestation - Attestation I have personally seen and examined this patient.: Yes I have fully participated in the care of the patient.: Yes I have reviewed all pertinent clinical information, including history, physical exam and plan: Yes
--- NOTE | 2017-10-04 19:54 | CP.PCM.PN ---
Subjective - Date & Time of Evaluation Date of Evaluation: 10/04/17 Time of Evaluation: 19:52 - Subjective Subjective: I D NOTE CORRECTION OF PREVIOUS DAYS NOTE IV ANTIBIOTICS FOR 7 TO 10 DAYS (NOT 19) Objective - Vital Signs/Intake and Output Vital Signs (last 24 hours): Temp Pulse Resp BP Pulse Ox 97.7 F 84 20 139/64 98 10/04/17 17:11 10/04/17 17:11 10/04/17 17:11 10/04/17 17:11 10/04/17 17:11 - Medications Medications: Current Medications Acetaminophen (Tylenol 325mg Tab) 650 mg PO Q6 PRN PRN Reason: Headache Albuterol Sulfate (Albuterol 0.083% Inhal Danelle (2.5 Mg/3 Ml) Ud) 2.5 mg INH RQ4 PRN PRN Reason: Shortness of Breath Albuterol/Ipratropium (Duoneb 3 Mg/0.5 Mg (3 Ml) Ud) 3 ml INH RQ6 [facility] Last Admin: 10/04/17 19:27 Dose: 3 ml Atorvastatin Calcium (Lipitor) 10 mg PO DAILY [facility] Last Admin: 10/04/17 08:06 Dose: 10 mg Carvedilol (Coreg) 25 mg PO BID [facility] Last Admin: 10/04/17 16:29 Dose: 25 mg Dextrose (Dextrose 50% Inj) 0 ml IV STAT PRN; Protocol PRN Reason: Hypoglycemia Protocol Dextrose (Glutose 15) 0 gm PO ONCE PRN; Protocol PRN Reason: Hypoglycemia Protocol Furosemide (Lasix) 20 mg PO DAILY [facility] Last Admin: 10/04/17 08:04 Dose: 20 mg Glucagon (Glucagen Diagnostic Kit) 0 mg IM STAT PRN; Protocol PRN Reason: Hypoglycemia Protocol Ceftriaxone Sodium 1 gm/ (Sodium Chloride) 100 mls @ 100 mls/hr IVPB DAILY@ 1700 [facility] PRN Reason: Protocol Last Admin: 10/04/17 16:28 Dose: 100 mls/hr Insulin Detemir (Levemir) 22 units SC HS [facility] Last Admin: 10/03/17 21:24 Dose: 22 units Insulin Human Regular (Humulin R) 0 units SC ACHS [facility] PRN Reason: Protocol Last Admin: 10/04/17 16:32 Dose: 2 units Sertraline HCl (Zoloft) 50 mg PO DAILY [facility] Last Admin: 10/04/17 08:05 Dose: 50 mg Sitagliptin Phosphate (Januvia) 25 mg PO DAILY@0800 [facility] Last Admin: 10/04/17 08:04 Dose: 25 mg Vitamin A (Vitamin A&D) 1 applic TP Q8 PRN PRN Reason: Dry skin Last Admin: 09/29/17 16:41 Dose: 1 applic Vitamin D (Vitamin D 400 Intl Units Tab) 400 intlu PO DAILY [facility] Last Admin: 10/04/17 08:04 Dose: 400 intlu - Labs Labs: 10/01/17 11:59 10/02/17 07:05 PT 32.9 Seconds (9.8-13.1) H 10/04/17 05:40 INR 2.9 (0.9-1.2) H 10/04/17 05:40
[2017-10-04] MEDS: Insulin Detemir 100 Units/ml Inj SC SCH (21:23)
[2017-10-05] MEDS: Albuterol-Ipratrop 3 mg / 0.5 (3 ml) UD INH SCH ×5 (01:06→19:33)
[2017-10-05] MEDS: Insulin Regular 100 units/ml SC SCH ×4 (06:32→21:14)
[2017-10-05 07:08] LABS: PROTHROMBIN TIME 22.6 Seconds (9.8-13.1)
--- NOTE | 2017-10-05 07:50 | CP.PCM.PN ---
<Timur Galvez - Last Filed: 10/05/17 07:53> Subjective - Date & Time of Evaluation Date of Evaluation: 10/05/17 Time of Evaluation: 07:10 - Subjective Subjective: The patient was seen and examined this morning bedside. There are no acute events overnight, NAD. The patient reports breathing better w/ high flow nasal cannula at night. The patient is participating w/ physical therapy. Objective - Vital Signs/Intake and Output Vital Signs (last 24 hours): Temp Pulse Resp BP Pulse Ox 98.1 F 83 20 117/55 L 97 10/04/17 22:00 10/04/17 22:00 10/04/17 22:00 10/04/17 22:00 10/04/17 22:00 - Medications Medications: Current Medications Acetaminophen (Tylenol 325mg Tab) 650 mg PO Q6 PRN PRN Reason: Headache Albuterol Sulfate (Albuterol 0.083% Inhal Danelle (2.5 Mg/3 Ml) Ud) 2.5 mg INH RQ4 PRN PRN Reason: Shortness of Breath Albuterol/Ipratropium (Duoneb 3 Mg/0.5 Mg (3 Ml) Ud) 3 ml INH RQ6 [facility] Last Admin: 10/05/17 01:06 Dose: 3 ml Atorvastatin Calcium (Lipitor) 10 mg PO DAILY [facility] Last Admin: 10/04/17 08:06 Dose: 10 mg Carvedilol (Coreg) 25 mg PO BID [facility] Last Admin: 10/04/17 16:29 Dose: 25 mg Dextrose (Dextrose 50% Inj) 0 ml IV STAT PRN; Protocol PRN Reason: Hypoglycemia Protocol Dextrose (Glutose 15) 0 gm PO ONCE PRN; Protocol PRN Reason: Hypoglycemia Protocol Furosemide (Lasix) 20 mg PO DAILY [facility] Last Admin: 10/04/17 08:04 Dose: 20 mg Glucagon (Glucagen Diagnostic Kit) 0 mg IM STAT PRN; Protocol PRN Reason: Hypoglycemia Protocol Ceftriaxone Sodium 1 gm/ (Sodium Chloride) 100 mls @ 100 mls/hr IVPB DAILY@ 1700 [facility] PRN Reason: Protocol Last Admin: 10/04/17 16:28 Dose: 100 mls/hr Insulin Detemir (Levemir) 22 units SC HS [facility] Last Admin: 10/04/17 21:23 Dose: 22 units Insulin Human Regular (Humulin R) 0 units SC ACHS [facility] PRN Reason: Protocol Last Admin: 10/05/17 06:32 Dose: 2 units Sertraline HCl (Zoloft) 50 mg PO DAILY [facility] Last Admin: 10/04/17 08:05 Dose: 50 mg Sitagliptin Phosphate (Januvia) 25 mg PO DAILY@0800 [facility] Last Admin: 10/04/17 08:04 Dose: 25 mg Vitamin A (Vitamin A&D) 1 applic TP Q8 PRN PRN Reason: Dry skin Last Admin: 09/29/17 16:41 Dose: 1 applic Vitamin D (Vitamin D 400 Intl Units Tab) 400 intlu PO DAILY [facility] Last Admin: 10/04/17 08:04 Dose: 400 intlu - Labs Labs: 10/01/17 11:59 10/02/17 07:05 PT 22.6 Seconds (9.8-13.1) H D 10/05/17 05:45 INR 2.0 (0.9-1.2) H D 10/05/17 05:45 - Constitutional Appears: No Acute Distress - Head Exam Head Exam: ATRAUMATIC, NORMAL INSPECTION, NORMOCEPHALIC - Eye Exam Eye Exam: Normal appearance - ENT Exam ENT Exam: Mucous Membranes Moist - Neck Exam Neck Exam: Full ROM. absent: Tenderness - Respiratory Exam Respiratory Exam: Rales, Wheezes. absent: Decreased Breath Sounds, Respiratory Distress Additional comments: mild bibasilar crackles, mild scattered wheeze - Cardiovascular Exam Cardiovascular Exam: REGULAR RHYTHM. absent: Tachycardia - GI/Abdominal Exam GI & Abdominal Exam: Soft, Normal Bowel Sounds. absent: Distended, Tenderness - Extremities Exam Extremities Exam: absent: Calf Tenderness Additional comments: chronic venous insufficiency, chronic bilateral varicose veins, minimal pedal edema - Neurological Exam Neurological Exam: Alert, Awake, Oriented x3 - Skin Skin Exam: Dry, Intact, Normal Color, Warm Assessment and Plan - Assessment and Plan (Free Text) Assessment: 81 y/o woman w/ pmh of chronic reduced EF CHF, pacemaker, IDDM2, HTN, and atrial fibrillation presenting with SOB and diarrhea. Admitted to TCU for continued physical therapy Plan: Deconditioning - admit to TCU - physcial therapy consulted, recommendations appreciated - continue PT Short of Breath - improving - Possible 2/2 acute URI, but Cardiac etiology can not be r/o because patient has a significant cardiac history - currently mild scattered wheeze on exam - NC at 2 L prn - high flow nasal cannula at night - CPAP w/ nasal pillows at 9 cm pressure for home when discharged - CXR on admission was unremarkable. Official report showed no active disease - duoneb Q6h mana - albuterol 2.5 mg INH Q4h prn - CXR: no active pulmonary disease - pulmonology consulted, Dr. Guallpa, recommendations appreciated UTI - patient reports minimal dysuria - urine culture return as strep viridans - rocephin 1 gm IV daily Day 5 - ID consulted, Dr. Peña, recommendations appreciated Influenza A - Influenza A/B: positive - completed tamiflu (renally dosed, CrCl 46): 30 mg PO BID daily Day 5 - Mucinex DM - Acetaminophen 650 mg PO PRN (normal AST/ALT on admission) - f/u respiratory status Chronic Reduced EF CHF - does not seem to be in exacerbation - no evidence of significant pleural effusion, no LE pedal edema, no crackles on auscultation - c/w Home dose of lasix. Furosemide 20 mg PO BID - c/w Carvedilol 25 mg PO BID - heart healthy diet - pro-BNP on admission 2490 ( could be pt's baseline) - Echo on 10/20/16 reported as severely reduced LVEF 20-25 %, global hypokinesis - cardiology consulted, Dr. Farias, recommendations appreciated H/O A Fib - Pacemaker, Paced rhythm - Controlled - c/w Carvedilol - On Coumadin 6 mg daily as per patient and family report, confirmed w/ Pharmacy - INR 2.0 - warfarin 4 mg PO ordered for today - f/u INR Diabetes Mellitus type 2 - c/w Accuchek - resume home Januvia 25 mg QD (renal adjusted) - resume Levemir 22 units at bedtime ( as per pt report and old records) - insulin Lispro before meals per protocol. Low dose for now - Hypoglycemic protocol - Diabetic diet CKD stage 3 - On ergocalciferol 50,000 unit weekly - normal potassium, stable BUN/Cr Diet - heart healthy and diabetic Prophylactic measures - DVT: On anticoagulant Coumadin 6 mg PO daily, warfarin 4 mg PO ordered for today <Julien Oates - Last Filed: 10/07/17 06:57> Objective - Vital Signs/Intake and Output Vital Signs (last 24 hours): Temp Pulse Resp BP Pulse Ox 98.8 F 84 20 109/67 99 10/06/17 20:00 10/06/17 20:00 10/07/17 04:45 10/06/17 20:00 10/06/17 20:00 - Medications Medications: Current Medications Acetaminophen (Tylenol 325mg Tab) 650 mg PO Q6 PRN PRN Reason: Headache Last Admin: 10/06/17 09:19 Dose: 650 mg Albuterol Sulfate (Albuterol 0.083% Inhal Danelle (2.5 Mg/3 Ml) Ud) 2.5 mg INH RQ4 PRN PRN Reason: Shortness of Breath Albuterol/Ipratropium (Duoneb 3 Mg/0.5 Mg (3 Ml) Ud) 3 ml INH RQ6 [facility] Last Admin: 10/07/17 01:45 Dose: Not Given Atorvastatin Calcium (Lipitor) 10 mg PO DAILY [facility] Last Admin: 10/06/17 08:32 Dose: 10 mg Carvedilol (Coreg) 25 mg PO BID [facility] Last Admin: 10/06/17 16:54 Dose: 25 mg Dextrose (Dextrose 50% Inj) 0 ml IV STAT PRN; Protocol PRN Reason: Hypoglycemia Protocol Dextrose (Glutose 15) 0 gm PO ONCE PRN; Protocol PRN Reason: Hypoglycemia Protocol Furosemide (Lasix) 20 mg PO DAILY [facility] Last Admin: 10/06/17 08:32 Dose: 20 mg Glucagon (Glucagen Diagnostic Kit) 0 mg IM STAT PRN; Protocol PRN Reason: Hypoglycemia Protocol Insulin Detemir (Levemir) 22 units SC HS [facility] Last Admin: 10/06/17 22:55 Dose: 22 units Insulin Human Regular (Humulin R) 0 units SC ACHS [facility] PRN Reason: Protocol Last Admin: 10/07/17 06:49 Dose: 2 units Sertraline HCl (Zoloft) 50 mg PO DAILY [facility] Last Admin: 10/06/17 08:33 Dose: 50 mg Sitagliptin Phosphate (Januvia) 25 mg PO DAILY@0800 [facility] Last Admin: 10/06/17 08:31 Dose: 25 mg Vitamin A (Vitamin A&D) 1 applic TP Q8 PRN PRN Reason: Dry skin Last Admin: 09/29/17 16:41 Dose: 1 applic Vitamin D (Vitamin D 400 Intl Units Tab) 400 intlu PO DAILY [facility] Last Admin: 10/06/17 08:32 Dose: 400 intlu - Labs Labs: 10/06/17 04:30 10/07/17 04:45 PT 28.8 Seconds (9.8-13.1) H 10/07/17 04:45 INR 2.6 (0.9-1.2) H 10/07/17 04:45 Attending/Attestation - Attestation I have personally seen and examined this patient.: Yes I have fully participated in the care of the patient.: Yes I have reviewed all pertinent clinical information, including history, physical exam and plan: Yes
[2017-10-05] MEDS: Cholecalciferol 400 Intl Units Tab PO SCH (08:44)
[2017-10-05] MEDS: Insulin Detemir 100 Units/ml Inj SC SCH (21:12)
[2017-10-06] MEDS: Albuterol-Ipratrop 3 mg / 0.5 (3 ml) UD INH SCH ×4 (01:08→19:25)
[2017-10-06 05:50] LABS: HEMOGLOBIN 11.7 g/dL (12.0-16.0); MEAN CELL VOLUME 90.3 fl (81.0-99.0); MEAN CORPUSCULAR HEMOGLOBIN 30.7 pg (27.0-31.0); RBC 3.82 Mil/uL (3.80-5.20); RED CELL DISTRIBUTION WIDTH 13.5 % (11.5-14.5); WHITE BLOOD COUNT 5.8 K/uL (4.8-10.8)
[2017-10-06 06:17] LABS: INR 2.4 (0.9-1.2); PROTHROMBIN TIME 27.4 Seconds (9.8-13.1)
[2017-10-06] MEDS: Insulin Regular 100 units/ml SC SCH ×4 (06:34→22:54)
[2017-10-06] MEDS: Cholecalciferol 400 Intl Units Tab PO SCH (08:32)
--- NOTE | 2017-10-06 11:47 | CP.PCM.PN ---
<Kandi Young - Last Filed: 10/06/17 15:49> Subjective - Date & Time of Evaluation Date of Evaluation: 10/06/17 Time of Evaluation: 07:30 - Subjective Subjective: The pt was seen and evaluated at bedside this morning; there were no acute events overnight with her. Was on high flow oxygen mask, appeared comfortable in bed. Denied chest pain, shortness of breath. She participated in physical and occupational therapy yesterday. Objective - Vital Signs/Intake and Output Vital Signs (last 24 hours): Temp Pulse Resp BP Pulse Ox 98.1 F 91 H 20 118/63 97 10/06/17 09:58 10/06/17 09:58 10/06/17 09:58 10/06/17 09:58 10/06/17 09:58 - Medications Medications: Current Medications Acetaminophen (Tylenol 325mg Tab) 650 mg PO Q6 PRN PRN Reason: Headache Last Admin: 10/06/17 09:19 Dose: 650 mg Albuterol Sulfate (Albuterol 0.083% Inhal Danelle (2.5 Mg/3 Ml) Ud) 2.5 mg INH RQ4 PRN PRN Reason: Shortness of Breath Albuterol/Ipratropium (Duoneb 3 Mg/0.5 Mg (3 Ml) Ud) 3 ml INH RQ6 [facility] Last Admin: 10/06/17 07:13 Dose: 3 ml Atorvastatin Calcium (Lipitor) 10 mg PO DAILY [facility] Last Admin: 10/06/17 08:32 Dose: 10 mg Carvedilol (Coreg) 25 mg PO BID [facility] Last Admin: 10/06/17 08:32 Dose: 25 mg Dextrose (Dextrose 50% Inj) 0 ml IV STAT PRN; Protocol PRN Reason: Hypoglycemia Protocol Dextrose (Glutose 15) 0 gm PO ONCE PRN; Protocol PRN Reason: Hypoglycemia Protocol Furosemide (Lasix) 20 mg PO DAILY [facility] Last Admin: 10/06/17 08:32 Dose: 20 mg Glucagon (Glucagen Diagnostic Kit) 0 mg IM STAT PRN; Protocol PRN Reason: Hypoglycemia Protocol Ceftriaxone Sodium 1 gm/ (Sodium Chloride) 100 mls @ 100 mls/hr IVPB DAILY@ 1700 [facility] PRN Reason: Protocol Last Admin: 10/05/17 16:58 Dose: 100 mls/hr Insulin Detemir (Levemir) 22 units SC HS [facility] Last Admin: 10/05/17 21:12 Dose: 22 units Insulin Human Regular (Humulin R) 0 units SC ACHS [facility] PRN Reason: Protocol Last Admin: 10/06/17 06:34 Dose: 2 units Sertraline HCl (Zoloft) 50 mg PO DAILY [facility] Last Admin: 10/06/17 08:33 Dose: 50 mg Sitagliptin Phosphate (Januvia) 25 mg PO DAILY@0800 [facility] Last Admin: 10/06/17 08:31 Dose: 25 mg Vitamin A (Vitamin A&D) 1 applic TP Q8 PRN PRN Reason: Dry skin Last Admin: 09/29/17 16:41 Dose: 1 applic Vitamin D (Vitamin D 400 Intl Units Tab) 400 intlu PO DAILY [facility] Last Admin: 10/06/17 08:32 Dose: 400 intlu - Labs Labs: 10/06/17 04:30 10/02/17 07:05 PT 27.4 Seconds (9.8-13.1) H 10/06/17 04:30 INR 2.4 (0.9-1.2) H 10/06/17 04:30 - Constitutional Appears: No Acute Distress - Head Exam Head Exam: ATRAUMATIC - Eye Exam Eye Exam: Normal appearance - ENT Exam ENT Exam: Mucous Membranes Moist - Respiratory Exam Respiratory Exam: Wheezes. absent: Respiratory Distress Additional comments: mild wheezing scattered throughout - Cardiovascular Exam Cardiovascular Exam: REGULAR RHYTHM - GI/Abdominal Exam GI & Abdominal Exam: Soft, Normal Bowel Sounds - Extremities Exam Extremities Exam: absent: Calf Tenderness Additional comments: bilateral varicose veins - Skin Skin Exam: Dry, Normal Color, Warm Assessment and Plan - Assessment and Plan (Free Text) Assessment: 81 yo F with PMHx chronic reduced EF CHF, with pacemaker, IDDM2, HTN, and atrial fibrillation admitted due to SOB. Currently admitted to TCU for continued physical and occupational therapy. Participating in therapy. Plan: #) Deconditioning - Admitted to TCU - Participating in physical and occupational therapy; continue PT/OT #) Shortness of Breath - improving - Possibly secondary to acute URI; cardiac etiology could not be ruled out because patient has a significant cardiac history - Cardiology consult Dr. Farias: note from 10/03 pt is stable from cardiac perspective - Pulmonology consult, Dr. Guallpa - Pt unable to tolerate full mask CPAP, so as per Dr. Guallpa, can have CPAP w/ nasal pillows at 9cm pressure for home when discharged - High flow nasal canula at night - CXR on admission to TCU: no active disease - Duoneb Q6h scheduled - Albuterol 2.5 mg INH Q4h prn - CXR: no active pulmonary disease #) UTI - Urine culture: strep viridans - Rocephin 1 gm IV daily Day 6 - ID consulted, Dr. Peña, recommendations appreciated #) Influenza A - Influenza A/B: positive - Completed tamiflu (renally dosed, CrCl 46): 30 mg PO BID daily Day 5 - Mucinex DM - Acetaminophen 650 mg PO PRN (normal AST/ALT on admission) - f/u respiratory status #) Chronic Reduced Ejection Fraction CHF - Cardiology consult, Dr. Farias, as per 10/03 note, pt is stable from cardiac perspective, recommendations appreciated - No evidence of significant pleural effusion, no significant LE pedal edema, no crackles on auscultation - Continue with home dose of lasix (furosemide) 20 mg PO BID - Continue with carvedilol 25 mg PO BID - Heart healthy diet - Pro-BNP on admission 2490 - Echo from 10/22 reported as severely reduced LVEF 20-25 %, global hypokinesis #) History of A-Fib - Pacemaker, paced rhythm, controlled - Continue carvedilol - Home dose of coumadin was 6 mg daily as per patient and family report, confirmed with [facility] - INR 2.4 today, after receiving 4mg coumadin yesterday - warfarin 3 mg PO ordered for today - f/u INR tomorrow #) Diabetes Mellitus type 2 - Home meds: Januvia 25 mg QD (renal adjusted), Levemir 22 units at bedtime ( as per pt report and old records) - insulin Lispro before meals per protocol, low dose for now - Hypoglycemic protocol - Diabetic diet - Accuchecks #) CKD stage 3 - On ergocalciferol 50,000 unit weekly - Potassium wnl , stable BUN/Cr - BMP tomorrow #) Diet - heart healthy and diabetic #) DVT prophylaxis - Home dose anticoagulant Coumadin 6 mg PO daily; warfarin 3 mg PO ordered for today due to INR being 2.4 today after receiving 4mg yesterday <Salvador Obando - Last Filed: 10/10/17 06:59> Objective - Vital Signs/Intake and Output Vital Signs (last 24 hours): Temp Pulse Resp BP Pulse Ox 97.5 F L 87 20 146/81 100 10/09/17 21:37 10/09/17 21:37 10/09/17 21:37 10/09/17 21:37 10/09/17 21:37 - Medications Medications: Current Medications Acetaminophen (Tylenol 325mg Tab) 650 mg PO Q6 PRN PRN Reason: Headache Last Admin: 10/06/17 09:19 Dose: 650 mg Albuterol Sulfate (Albuterol 0.083% Inhal Danelle (2.5 Mg/3 Ml) Ud) 2.5 mg INH RQ4 PRN PRN Reason: Shortness of Breath Albuterol/Ipratropium (Duoneb 3 Mg/0.5 Mg (3 Ml) Ud) 3 ml INH RQ6 [facility] Last Admin: 10/10/17 01:08 Dose: 3 ml Atorvastatin Calcium (Lipitor) 10 mg PO DAILY [facility] Last Admin: 10/09/17 08:22 Dose: 10 mg Carvedilol (Coreg) 25 mg PO BID [facility] Last Admin: 10/09/17 17:33 Dose: 25 mg Dextrose (Dextrose 50% Inj) 0 ml IV STAT PRN; Protocol PRN Reason: Hypoglycemia Protocol Dextrose (Glutose 15) 0 gm PO ONCE PRN; Protocol PRN Reason: Hypoglycemia Protocol Furosemide (Lasix) 20 mg PO DAILY [facility] Last Admin: 10/09/17 08:22 Dose: 20 mg Glucagon (Glucagen Diagnostic Kit) 0 mg IM STAT PRN; Protocol PRN Reason: Hypoglycemia Protocol Ceftriaxone Sodium 1 gm/ (Sodium Chloride) 100 mls @ 100 mls/hr IVPB DAILY@ 1700 [facility] PRN Reason: Protocol Last Admin: 10/09/17 17:31 Dose: 100 mls/hr Insulin Detemir (Levemir) 22 units SC HS [facility] Last Admin: 10/09/17 21:42 Dose: 22 units Insulin Human Regular (Humulin R) 0 units SC ACHS [facility] PRN Reason: Protocol Last Admin: 10/09/17 21:38 Dose: Not Given Sertraline HCl (Zoloft) 50 mg PO DAILY [facility] Last Admin: 10/09/17 08:22 Dose: 50 mg Sitagliptin Phosphate (Januvia) 25 mg PO DAILY@0800 [facility] Last Admin: 10/09/17 08:21 Dose: 25 mg Vitamin A (Vitamin A&D) 1 applic TP Q8 PRN PRN Reason: Dry skin Last Admin: 09/29/17 16:41 Dose: 1 applic Vitamin D (Vitamin D 400 Intl Units Tab) 400 intlu PO DAILY [facility] Last Admin: 10/09/17 08:22 Dose: 400 intlu - Labs Labs: 10/06/17 04:30 10/07/17 04:45 PT 20.9 Seconds (9.8-13.1) H 10/09/17 05:30 INR 1.9 (0.9-1.2) H 10/09/17 05:30 Attending/Attestation - Attestation I have personally seen and examined this patient.: Yes I have fully participated in the care of the patient.: Yes I have reviewed all pertinent clinical information, including history, physical exam and plan: Yes
[2017-10-06] MEDS: Insulin Detemir 100 Units/ml Inj SC SCH (22:55)
[2017-10-07] MEDS: Albuterol-Ipratrop 3 mg / 0.5 (3 ml) UD INH SCH ×4 (01:45→19:38)
[2017-10-07 05:08] VITALS: RESP 20
[2017-10-07 06:42] LABS: CALCIUM 9.3 mg/dL (8.4-10.2)
[2017-10-07 06:43] LABS: INR 2.6 (0.9-1.2); PROTHROMBIN TIME 28.8 Seconds (9.8-13.1)
[2017-10-07] MEDS: Insulin Regular 100 units/ml SC SCH ×4 (06:49→22:00)
[2017-10-07] MEDS: Cholecalciferol 400 Intl Units Tab PO SCH (09:03)
--- NOTE | 2017-10-07 10:24 | CP.PCM.PN ---
Subjective - Date & Time of Evaluation Date of Evaluation: 10/07/17 Time of Evaluation: 07:35 - Subjective Subjective: Pt was seen and evaluated this morning in her room. She appeared in good spirits , reported no acute events overnight. Participating in physical/occupational therapy. Continuing to get IV antibiotics, day 7. Objective - Vital Signs/Intake and Output Vital Signs (last 24 hours): Temp Pulse Resp BP Pulse Ox 98.8 F 90 20 112/64 98 10/07/17 10:00 10/07/17 10:00 10/07/17 10:00 10/07/17 10:00 10/07/17 10:00 - Medications Medications: Current Medications Acetaminophen (Tylenol 325mg Tab) 650 mg PO Q6 PRN PRN Reason: Headache Last Admin: 10/06/17 09:19 Dose: 650 mg Albuterol Sulfate (Albuterol 0.083% Inhal Danelle (2.5 Mg/3 Ml) Ud) 2.5 mg INH RQ4 PRN PRN Reason: Shortness of Breath Albuterol/Ipratropium (Duoneb 3 Mg/0.5 Mg (3 Ml) Ud) 3 ml INH RQ6 [facility] Last Admin: 10/07/17 08:21 Dose: 3 ml Atorvastatin Calcium (Lipitor) 10 mg PO DAILY [facility] Last Admin: 10/07/17 09:05 Dose: 10 mg Carvedilol (Coreg) 25 mg PO BID [facility] Last Admin: 10/07/17 09:02 Dose: 25 mg Dextrose (Dextrose 50% Inj) 0 ml IV STAT PRN; Protocol PRN Reason: Hypoglycemia Protocol Dextrose (Glutose 15) 0 gm PO ONCE PRN; Protocol PRN Reason: Hypoglycemia Protocol Furosemide (Lasix) 20 mg PO DAILY [facility] Last Admin: 10/07/17 09:03 Dose: 20 mg Glucagon (Glucagen Diagnostic Kit) 0 mg IM STAT PRN; Protocol PRN Reason: Hypoglycemia Protocol Insulin Detemir (Levemir) 22 units SC HS [facility] Last Admin: 10/06/17 22:55 Dose: 22 units Insulin Human Regular (Humulin R) 0 units SC ACHS [facility] PRN Reason: Protocol Last Admin: 10/07/17 06:49 Dose: 2 units Sertraline HCl (Zoloft) 50 mg PO DAILY [facility] Last Admin: 10/07/17 09:03 Dose: 50 mg Sitagliptin Phosphate (Januvia) 25 mg PO DAILY@0800 [facility] Last Admin: 10/07/17 09:03 Dose: 25 mg Vitamin A (Vitamin A&D) 1 applic TP Q8 PRN PRN Reason: Dry skin Last Admin: 09/29/17 16:41 Dose: 1 applic Vitamin D (Vitamin D 400 Intl Units Tab) 400 intlu PO DAILY [facility] Last Admin: 10/07/17 09:03 Dose: 400 intlu - Labs Labs: 10/06/17 04:30 10/07/17 04:45 PT 28.8 Seconds (9.8-13.1) H 10/07/17 04:45 INR 2.6 (0.9-1.2) H 10/07/17 04:45 - Constitutional Appears: Non-toxic, No Acute Distress, Chronically Ill - Head Exam Head Exam: NORMAL INSPECTION - Eye Exam Eye Exam: Normal appearance - ENT Exam ENT Exam: Mucous Membranes Moist - Respiratory Exam Respiratory Exam: NORMAL BREATHING PATTERN. absent: Respiratory Distress - Cardiovascular Exam Cardiovascular Exam: REGULAR RHYTHM - GI/Abdominal Exam GI & Abdominal Exam: Soft, Normal Bowel Sounds - Extremities Exam Extremities Exam: absent: Calf Tenderness Additional comments: varicose veins, chronic - Neurological Exam Neurological Exam: Alert, Awake - Psychiatric Exam Psychiatric exam: Normal Mood - Skin Skin Exam: Dry, Intact, Normal Color, Warm Assessment and Plan - Assessment and Plan (Free Text) Assessment: 81 yo F with PMHx chronic reduced EF CHF, with pacemaker, IDDM2, HTN, and atrial fibrillation admitted due to SOB. Currently admitted to TCU for continued physical and occupational therapy. Getting IV antibiotics for UTI. Participating in therapy. Plan: #) Deconditioning - Admitted to TCU - Participating in physical and occupational therapy; continue PT/OT #) Shortness of Breath - improving - Possibly secondary to acute URI; cardiac etiology could not be ruled out because patient has a significant cardiac history - Cardiology consult Dr. Farias: note from 10/03 pt is stable from cardiac perspective - Pulmonology consult, Dr. Guallpa - Pt unable to tolerate full mask CPAP, so as per Dr. Guallpa, can have CPAP w/ nasal pillows at 9cm pressure for home when discharged - High flow nasal canula at night - CXR on admission to TCU: no active disease - Duoneb Q6h scheduled - Albuterol 2.5 mg INH Q4h prn - CXR: no active pulmonary disease #) UTI - Urine culture: strep viridans - Rocephin 1 gm IV daily Day 7 - ID consulted, Dr. Peña, recommendations appreciated #) Influenza A - Influenza A/B: positive - Completed tamiflu (renally dosed, CrCl 46): 30 mg PO BID daily x 5 days - Mucinex DM - Acetaminophen 650 mg PO PRN (normal AST/ALT on admission) - f/u respiratory status #) Chronic Reduced Ejection Fraction CHF - Cardiology consult, Dr. Farias, as per 10/03 note, pt is stable from cardiac perspective, recommendations appreciated - No evidence of significant pleural effusion, no significant LE pedal edema, no crackles on auscultation - Continue with home dose of lasix (furosemide) 20 mg PO BID - Continue with carvedilol 25 mg PO BID - Heart healthy diet - Pro-BNP on admission 2490 - Echo from 10/22 reported as severely reduced LVEF 20-25 %, global hypokinesis #) History of A-Fib - Pacemaker, paced rhythm, controlled - Continue carvedilol - Home dose of coumadin was 6 mg daily as per patient and family report, confirmed with [facility] - INR 2.6 today, after receiving 3 mg coumadin yesterday - Continue 3 mg PO ordered for today #) Diabetes Mellitus type 2 - Home meds: Januvia 25 mg QD (renal adjusted), Levemir 22 units at bedtime ( as per pt report and old records) - insulin Lispro before meals per protocol, low dose for now - Hypoglycemic protocol - Diabetic diet - Accuchecks #) CKD stage 3 - On ergocalciferol 50,000 unit weekly - Potassium wnl , BUN down from 53 to 41; Cr down to 1.4 from 1.6 #) Diet - heart healthy and diabetic #) DVT prophylaxis - Home dose anticoagulant Coumadin 6 mg PO daily; warfarin 3 mg PO ordered for today
--- NOTE | 2017-10-07 10:56 | CP.PCM.PN ---
Subjective - Date & Time of Evaluation Date of Evaluation: 10/07/17 Time of Evaluation: 10:48 - Subjective Subjective: The patient has been doing well and remains stable using High-Flow Nasal Canula. She relates sleeping well with this device. Nasal CPAP should be obtained upon discharge, although a new sleep study may be requested by her insurance since her last test was 2014. There has been no change in her clinical status over the intervening time frame. If request for nCPAP is declined by insurance then a sleep study should be scheduled for her at [facility] PRIOR to her discharge, and if possible done as a split study so EULOGIO can be re-documented and CPAP titration can both be done in one night's exam. Objective - Vital Signs/Intake and Output Vital Signs (last 24 hours): Temp Pulse Resp BP Pulse Ox 98.8 F 90 20 112/64 98 10/07/17 10:00 10/07/17 10:00 10/07/17 10:00 10/07/17 10:00 10/07/17 10:00 - Medications Medications: Current Medications Acetaminophen (Tylenol 325mg Tab) 650 mg PO Q6 PRN PRN Reason: Headache Last Admin: 10/06/17 09:19 Dose: 650 mg Albuterol Sulfate (Albuterol 0.083% Inhal Danelle (2.5 Mg/3 Ml) Ud) 2.5 mg INH RQ4 PRN PRN Reason: Shortness of Breath Albuterol/Ipratropium (Duoneb 3 Mg/0.5 Mg (3 Ml) Ud) 3 ml INH RQ6 [facility] Last Admin: 10/07/17 08:21 Dose: 3 ml Atorvastatin Calcium (Lipitor) 10 mg PO DAILY [facility] Last Admin: 10/07/17 09:05 Dose: 10 mg Carvedilol (Coreg) 25 mg PO BID [facility] Last Admin: 10/07/17 09:02 Dose: 25 mg Dextrose (Dextrose 50% Inj) 0 ml IV STAT PRN; Protocol PRN Reason: Hypoglycemia Protocol Dextrose (Glutose 15) 0 gm PO ONCE PRN; Protocol PRN Reason: Hypoglycemia Protocol Furosemide (Lasix) 20 mg PO DAILY [facility] Last Admin: 10/07/17 09:03 Dose: 20 mg Glucagon (Glucagen Diagnostic Kit) 0 mg IM STAT PRN; Protocol PRN Reason: Hypoglycemia Protocol Insulin Detemir (Levemir) 22 units SC HS [facility] Last Admin: 10/06/17 22:55 Dose: 22 units Insulin Human Regular (Humulin R) 0 units SC ACHS [facility] PRN Reason: Protocol Last Admin: 10/07/17 06:49 Dose: 2 units Sertraline HCl (Zoloft) 50 mg PO DAILY [facility] Last Admin: 10/07/17 09:03 Dose: 50 mg Sitagliptin Phosphate (Januvia) 25 mg PO DAILY@0800 [facility] Last Admin: 10/07/17 09:03 Dose: 25 mg Vitamin A (Vitamin A&D) 1 applic TP Q8 PRN PRN Reason: Dry skin Last Admin: 09/29/17 16:41 Dose: 1 applic Vitamin D (Vitamin D 400 Intl Units Tab) 400 intlu PO DAILY [facility] Last Admin: 10/07/17 09:03 Dose: 400 intlu - Labs Labs: 10/06/17 04:30 10/07/17 04:45 PT 28.8 Seconds (9.8-13.1) H 10/07/17 04:45 INR 2.6 (0.9-1.2) H 10/07/17 04:45 Assessment and Plan (1) Sleep apnea in adult Status: Chronic
[2017-10-07] MEDS: Insulin Detemir 100 Units/ml Inj SC SCH (22:04)
[2017-10-08] MEDS: Albuterol-Ipratrop 3 mg / 0.5 (3 ml) UD INH SCH ×4 (00:59→19:27)
[2017-10-08 07:23] LABS: INR 2.1 (0.9-1.2); PROTHROMBIN TIME 23.3 Seconds (9.8-13.1)
[2017-10-08] MEDS: Insulin Regular 100 units/ml SC SCH ×4 (07:55→21:30)
[2017-10-08] MEDS: Cholecalciferol 400 Intl Units Tab PO SCH (09:12)
[2017-10-08] MEDS: Insulin Detemir 100 Units/ml Inj SC SCH (21:33)
--- NOTE | 2017-10-08 23:46 | CP.PCM.PN ---
Subjective - Date & Time of Evaluation Date of Evaluation: 10/08/17 Time of Evaluation: 08:25 - Subjective Subjective: Patient seen and examined at bedside with attending. 81F denies overnight or current SOB, chest pain and has been eating, voiding and ambulating with PT. Objective - Vital Signs/Intake and Output Vital Signs (last 24 hours): Temp Pulse Resp BP Pulse Ox 36.6 C 85 20 135/75 100 10/08/17 21:00 10/08/17 21:00 10/08/17 21:00 10/08/17 21:00 10/08/17 21:00 - Medications Medications: Current Medications Acetaminophen (Tylenol 325mg Tab) 650 mg PO Q6 PRN PRN Reason: Headache Last Admin: 10/06/17 09:19 Dose: 650 mg Albuterol Sulfate (Albuterol 0.083% Inhal Danelle (2.5 Mg/3 Ml) Ud) 2.5 mg INH RQ4 PRN PRN Reason: Shortness of Breath Albuterol/Ipratropium (Duoneb 3 Mg/0.5 Mg (3 Ml) Ud) 3 ml INH RQ6 [facility] Last Admin: 10/08/17 19:27 Dose: 3 ml Atorvastatin Calcium (Lipitor) 10 mg PO DAILY [facility] Last Admin: 10/08/17 09:12 Dose: 10 mg Carvedilol (Coreg) 25 mg PO BID [facility] Last Admin: 10/08/17 16:36 Dose: 25 mg Dextrose (Dextrose 50% Inj) 0 ml IV STAT PRN; Protocol PRN Reason: Hypoglycemia Protocol Dextrose (Glutose 15) 0 gm PO ONCE PRN; Protocol PRN Reason: Hypoglycemia Protocol Furosemide (Lasix) 20 mg PO DAILY [facility] Last Admin: 10/08/17 08:27 Dose: 20 mg Glucagon (Glucagen Diagnostic Kit) 0 mg IM STAT PRN; Protocol PRN Reason: Hypoglycemia Protocol Ceftriaxone Sodium 1 gm/ (Sodium Chloride) 100 mls @ 100 mls/hr IVPB DAILY@ 1700 [facility] PRN Reason: Protocol Last Admin: 10/08/17 16:40 Dose: 100 mls/hr Insulin Detemir (Levemir) 22 units SC HS [facility] Last Admin: 10/08/17 21:33 Dose: 22 units Insulin Human Regular (Humulin R) 0 units SC ACHS [facility] PRN Reason: Protocol Last Admin: 10/08/17 21:30 Dose: Not Given Sertraline HCl (Zoloft) 50 mg PO DAILY [facility] Last Admin: 10/08/17 09:14 Dose: 50 mg Sitagliptin Phosphate (Januvia) 25 mg PO DAILY@0800 [facility] Last Admin: 10/08/17 08:26 Dose: 25 mg Vitamin A (Vitamin A&D) 1 applic TP Q8 PRN PRN Reason: Dry skin Last Admin: 09/29/17 16:41 Dose: 1 applic Vitamin D (Vitamin D 400 Intl Units Tab) 400 intlu PO DAILY [facility] Last Admin: 10/08/17 09:12 Dose: 400 intlu - Labs Labs: 10/06/17 04:30 10/07/17 04:45 PT 23.3 Seconds (9.8-13.1) H D 10/08/17 05:30 INR 2.1 (0.9-1.2) H D 10/08/17 05:30 - Constitutional Appears: Well, Non-toxic - Head Exam Head Exam: ATRAUMATIC - Eye Exam Eye Exam: Normal appearance - ENT Exam ENT Exam: Mucous Membranes Moist - Respiratory Exam Respiratory Exam: Clear to Ausculation Bilateral, Rhonchi (scattered), NORMAL BREATHING PATTERN - Cardiovascular Exam Cardiovascular Exam: Irregular Rhythm - GI/Abdominal Exam GI & Abdominal Exam: Soft, Normal Bowel Sounds - Extremities Exam Extremities Exam: Normal Capillary Refill, Normal Inspection - Neurological Exam Neurological Exam: Alert, Awake - Psychiatric Exam Psychiatric exam: Normal Affect, Normal Mood - Skin Skin Exam: Dry, Warm Assessment and Plan - Assessment and Plan (Free Text) Assessment: 81F nearing completion of Influenza and UTI infections, respiratory status has improved. Plan: Continue with current management except Coumadin will be administered at 3.5 mg this evening with follow up INR in the AM.
[2017-10-09] MEDS: Albuterol-Ipratrop 3 mg / 0.5 (3 ml) UD INH SCH ×4 (01:12→20:40)
[2017-10-09 07:02] LABS: INR 1.9 (0.9-1.2); PROTHROMBIN TIME 20.9 Seconds (9.8-13.1)
[2017-10-09] MEDS: Insulin Regular 100 units/ml SC SCH ×4 (08:20→21:38)
[2017-10-09] MEDS: Cholecalciferol 400 Intl Units Tab PO SCH (08:22)
--- NOTE | 2017-10-09 13:14 | CP.PCM.PN ---
Subjective - Date & Time of Evaluation Date of Evaluation: 10/09/17 Time of Evaluation: 07:50 - Subjective Subjective: Pt seen and evaluated in her room today; sitting comfortably in her chair, wearing nasal canula. Refused CPAP at night. Has been participating in PT/OT during her stay in TCU. Objective - Vital Signs/Intake and Output Vital Signs (last 24 hours): Temp Pulse Resp BP Pulse Ox 97.6 F 80 20 136/72 100 10/09/17 08:30 10/09/17 08:30 10/09/17 08:30 10/09/17 08:30 10/09/17 08:30 - Medications Medications: Current Medications Acetaminophen (Tylenol 325mg Tab) 650 mg PO Q6 PRN PRN Reason: Headache Last Admin: 10/06/17 09:19 Dose: 650 mg Albuterol Sulfate (Albuterol 0.083% Inhal Danelle (2.5 Mg/3 Ml) Ud) 2.5 mg INH RQ4 PRN PRN Reason: Shortness of Breath Albuterol/Ipratropium (Duoneb 3 Mg/0.5 Mg (3 Ml) Ud) 3 ml INH RQ6 [facility] Last Admin: 10/09/17 07:44 Dose: 3 ml Atorvastatin Calcium (Lipitor) 10 mg PO DAILY [facility] Last Admin: 10/09/17 08:22 Dose: 10 mg Carvedilol (Coreg) 25 mg PO BID [facility] Last Admin: 10/09/17 08:22 Dose: 25 mg Dextrose (Dextrose 50% Inj) 0 ml IV STAT PRN; Protocol PRN Reason: Hypoglycemia Protocol Dextrose (Glutose 15) 0 gm PO ONCE PRN; Protocol PRN Reason: Hypoglycemia Protocol Furosemide (Lasix) 20 mg PO DAILY [facility] Last Admin: 10/09/17 08:22 Dose: 20 mg Glucagon (Glucagen Diagnostic Kit) 0 mg IM STAT PRN; Protocol PRN Reason: Hypoglycemia Protocol Ceftriaxone Sodium 1 gm/ (Sodium Chloride) 100 mls @ 100 mls/hr IVPB DAILY@ 1700 [facility] PRN Reason: Protocol Last Admin: 10/08/17 16:40 Dose: 100 mls/hr Insulin Detemir (Levemir) 22 units SC HS [facility] Last Admin: 10/08/17 21:33 Dose: 22 units Insulin Human Regular (Humulin R) 0 units SC ACHS [facility] PRN Reason: Protocol Last Admin: 10/09/17 12:44 Dose: 2 units Sertraline HCl (Zoloft) 50 mg PO DAILY [facility] Last Admin: 10/09/17 08:22 Dose: 50 mg Sitagliptin Phosphate (Januvia) 25 mg PO DAILY@0800 [facility] Last Admin: 10/09/17 08:21 Dose: 25 mg Vitamin A (Vitamin A&D) 1 applic TP Q8 PRN PRN Reason: Dry skin Last Admin: 09/29/17 16:41 Dose: 1 applic Vitamin D (Vitamin D 400 Intl Units Tab) 400 intlu PO DAILY [facility] Last Admin: 10/09/17 08:22 Dose: 400 intlu Warfarin Sodium (Coumadin) 1 mg PO QD5 [facility] PRN Reason: Protocol Stop: 10/09/17 17:01 Warfarin Sodium (Coumadin) 2.5 mg PO QD5 [facility] PRN Reason: Protocol Stop: 10/09/17 17:01 - Labs Labs: 10/06/17 04:30 10/07/17 04:45 PT 20.9 Seconds (9.8-13.1) H 10/09/17 05:30 INR 1.9 (0.9-1.2) H 10/09/17 05:30 - Constitutional Appears: Non-toxic, No Acute Distress - Head Exam Head Exam: NORMAL INSPECTION - Eye Exam Eye Exam: Normal appearance - ENT Exam ENT Exam: Mucous Membranes Moist - Respiratory Exam Respiratory Exam: Clear to Ausculation Bilateral, NORMAL BREATHING PATTERN. absent: Respiratory Distress - Cardiovascular Exam Cardiovascular Exam: REGULAR RHYTHM - GI/Abdominal Exam GI & Abdominal Exam: Soft, Normal Bowel Sounds - Extremities Exam Extremities Exam: absent: Calf Tenderness Additional comments: varicose veins - Neurological Exam Neurological Exam: Alert, Awake - Psychiatric Exam Psychiatric exam: Normal Mood - Skin Skin Exam: Dry, Normal Color, Warm Assessment and Plan - Assessment and Plan (Free Text) Assessment: 81 yo F with PMHx chronic reduced EF CHF, with pacemaker, IDDM2, HTN, and atrial fibrillation admitted due to SOB. Currently admitted to TCU for continued physical and occupational therapy. Getting IV antibiotics for UTI. Participating in therapy. Plan: #) Deconditioning - Admitted to TCU - Participating in physical and occupational therapy; continue PT/OT #) Shortness of Breath - improving - Possibly secondary to acute URI; cardiac etiology could not be ruled out because patient has a significant cardiac history - Cardiology consult Dr. Farias: note from 10/03 pt is stable from cardiac perspective - Pulmonology consult, Dr. Gaullpa; pt unable to tolerate full mask CPAP so she can have CPAP w/ nasal pillows at 9cm pressure for home when discharged but pt states she will not use the machine; note from Dr. Guallpa recommends further sleep study but pt is not agreeable to sleep studies-- request for equipment will be cancelled since pt is not agreeable to using it - High flow nasal canula at night - CXR on admission to TCU: no active disease - Duoneb Q6h scheduled - Albuterol 2.5 mg INH Q4h prn - CXR: no active pulmonary disease - Six minute walk test ordered for home oxygen need evaluation #) UTI - Urine culture: strep viridans - Rocephin 1 gm IV daily Day 9 - ID consulted, Dr. Peña, recommendations appreciated #) Influenza A - Influenza A/B: positive - Completed tamiflu (renally dosed, CrCl 46): 30 mg PO BID daily x 5 days - Acetaminophen 650 mg PO PRN (normal AST/ALT on admission) - f/u respiratory status #) Chronic Reduced Ejection Fraction CHF - Cardiology consult, Dr. Farias, as per 10/03 note, pt is stable from cardiac perspective, recommendations appreciated - No evidence of significant pleural effusion, no significant LE pedal edema, no crackles on auscultation - Continue with home dose of lasix (furosemide) 20 mg PO BID - Continue with carvedilol 25 mg PO BID - Heart healthy diet - Pro-BNP on admission 2490 - Echo from 10/22 reported as severely reduced LVEF 20-25 %, global hypokinesis #) History of A-Fib - Pacemaker, paced rhythm, controlled - Continue carvedilol - Home dose of coumadin was 6 mg daily as per patient and family report, confirmed with [facility], INR had been above 3 and has been adjusted throughout stay - INR 1.9 today, after pt had been receiving 3mg for 2 days - Coumadin 3.5 mg PO ordered for today #) Diabetes Mellitus type 2 - Home meds: Januvia 25 mg QD (renal adjusted), Levemir 22 units at bedtime ( as per pt report and old records) - insulin Lispro before meals per protocol, low dose for now - Hypoglycemic protocol - Diabetic diet - Accuchecks #) CKD stage 3 - On ergocalciferol 50,000 unit weekly - Potassium wnl , BUN down from 53 to 41; Cr down to 1.4 from 1.6 #) Diet - heart healthy and diabetic #) DVT prophylaxis - Home dose anticoagulant Coumadin 6 mg PO daily with supratherapeutic INR levels - Coumadin dose has been getting monitored/adjusted - Coumadin 3.5 mg PO ordered for today
[2017-10-09] MEDS: Insulin Detemir 100 Units/ml Inj SC SCH (21:42)
[2017-10-10] MEDS: Albuterol-Ipratrop 3 mg / 0.5 (3 ml) UD INH SCH ×3 (01:08→13:44)
[2017-10-10] MEDS: Insulin Regular 100 units/ml SC SCH ×3 (07:34→17:37)
[2017-10-10 07:48] LABS: INR 1.8 (0.9-1.2); PROTHROMBIN TIME 20.6 Seconds (9.8-13.1)
[2017-10-10] MEDS: Cholecalciferol 400 Intl Units Tab PO SCH (08:15)
--- NOTE | 2017-10-10 15:48 | CP.PCM.DIS ---
<Kandi Young - Last Filed: 10/10/17 17:12> Provider - Provider Date of Admission: 09/28/17 19:27 Attending physician: Julien Oates MD Primary care physician: Dr. Oates Consults: Infectious Disease: Dr. Peña Pulmonology: Dr. Guallpa Time Spent in preparation of Discharge (in minutes): 45 Diagnosis - Discharge Diagnosis (1) Sleep apnea Status: Acute Comment: pt appears to do well on high flow O2 and nasal canula; desaturates to 86% on walk test (2) UTI (urinary tract infection) Status: Acute Comment: resolved, s/p IV rocephin (3) Shortness of breath Status: Chronic Comment: pt desaturates to 86% on six minute walk test Hospital Course - Lab Results Lab Results: Micro Results 10/05/17 09:30 Blood Blood Culture - Final NO GROWTH AFTER 5 DAYS 10/05/17 09:30 Blood Gram Stain - Final TEST NOT PERFORMED 10/04/17 08:35 Blood Blood Culture - Final NO GROWTH AFTER 5 DAYS 10/04/17 08:35 Blood Gram Stain - Final TEST NOT PERFORMED 10/04/17 18:37 Urine,Clean Catch Urine Culture - Final Coagulase Neg Staphylococcus Most Recent Lab Values WBC 5.8 K/uL (4.8-10.8) 10/06/17 04:30 RBC 3.82 Mil/uL (3.80-5.20) 10/06/17 04:30 Hgb 11.7 g/dL (12.0-16.0) L 10/06/17 04:30 Hct 34.4 % (34.0-47.0) 10/06/17 04:30 MCV 90.3 fl (81.0-99.0) 10/06/17 04:30 MCH 30.7 pg (27.0-31.0) 10/06/17 04:30 MCHC 34.0 g/dL (33.0-37.0) 10/06/17 04:30 RDW 13.5 % (11.5-14.5) 10/06/17 04:30 Plt Count 182 K/uL (130-400) 10/06/17 04:30 PT 20.6 Seconds (9.8-13.1) H 10/10/17 07:25 INR 1.8 (0.9-1.2) H 10/10/17 07:25 Sodium 141 mmol/l (132-148) 10/07/17 04:45 Potassium 4.2 MMOL/L (3.6-5.0) 10/07/17 04:45 Chloride 98 mmol/L (98-107) 10/07/17 04:45 Carbon Dioxide 31 mmol/L (22-30) H 10/07/17 04:45 Anion Gap 16 (10-20) 10/07/17 04:45 BUN 41 mg/dl (7-17) H 10/07/17 04:45 Creatinine 1.4 mg/dl (0.7-1.2) H 10/07/17 04:45 Est GFR ( Amer) 43 10/07/17 04:45 Est GFR (Non-Af Amer) 36 10/07/17 04:45 POC Glucose (mg/dL) 211 mg/dL (65-110) H 10/10/17 11:13 Random Glucose 179 mg/dL (65-105) H 10/07/17 04:45 Calcium 9.3 mg/dL (8.4-10.2) 10/07/17 04:45 - Hospital Course Hospital Course: Ms. Wilkins is an 81 yo female with PMH IDDM, A-fib w/ pacemaker, CKD stage 3, sleep apnea, who was admitted to TCU for continued IV antibiotics for S. viridans found on UTI; Infectious Disease Dr. Peña was consulted who recommended pt receive IV rocephin for a course of 7-10 days. Pt completed her last IV dose of rocephin yesterday, and as per Dr. Peña pt is cleared to go home. Prior to TCU admission, she was originally admitted to the hospital with shortness of breath, and was found to be influenza positive. Given her hx of obstructive sleep apnea, technical cable jointer Dr. Guallpa was consulted, who recommended CPAP, and modified the recommendation to CPAP with nasal pillows when pt stated she would not be able to tolerate mask CPAP. He also recommended another sleep study, but pt was not agreeable to any CPAP use. She has been sleeping with nasal canula during the day and has been saturating adequately when wearing it, but short of breath when she is not. Orthopaedic General Dr. Farias was also consulted, and stated the pt is stable from the cardiology perspective. The patient is overweight, has risk of falls, and has high risk of re-admission and decompensation. Prior to her admission, she was on home dose of coumadin 6mg daily; but her INR was supratherapeutic. Her dose was adjusted during her hospital stay, and she will be discharged with a prescription for 1.0 mg coumadin and 2.5 mg coumadin for a total daily dose of 3.5mg. She will be given a prescription for INR check as well, to be done prior to her appt with Dr. Oates within 1 week. During a six minute walk test, pt desaturated to 86%. She has a long standing history of shortness of breath and obstructive airway disease/sleep apnea. Discharge Exam - Head Exam Head Exam: ATRAUMATIC, NORMAL INSPECTION - Eye Exam Eye Exam: Normal appearance - Respiratory Exam Respiratory Exam: Decreased Breath Sounds, NORMAL BREATHING PATTERN - Cardiovascular Exam Cardiovascular Exam: REGULAR RHYTHM - GI/Abdominal Exam GI & Abdominal Exam: Normal Bowel Sounds, Soft - Extremities Exam Extremities exam: pedal edema Additional comments: mild pedal edema, varicose veins - Neurological Exam Neurological exam: Alert, Oriented x3 - Skin Skin Exam: Dry, Normal Color, Warm Discharge Plan - Discharge Medications Prescriptions: Warfarin [Coumadin] 1 mg PO 1800 #30 tab Warfarin [Coumadin] 2.5 mg PO 1800 #30 tab - Follow Up Plan Condition: GOOD Disposition: HOME/ ROUTINE Patient education suggested?: Yes Instructions: Oxygen Therapy, Adult, Flu, Preventing Falls in the Older Adult, Urinary Tract Infection, Adult (DC), Vitamin K Diet, Warfarin Additional Instructions: Please follow up with Dr. Julien Oates within one week, call for appointment. [phone] patient is to have INR blood work done prior to appointment. <Salvador Obando - Last Filed: 10/11/17 06:44> Provider - Provider Date of Admission: 09/28/17 19:27 Attending physician: Julien Oates MD Hospital Course - Lab Results Lab Results: Micro Results 10/05/17 09:30 Blood Blood Culture - Final NO GROWTH AFTER 5 DAYS 10/05/17 09:30 Blood Gram Stain - Final TEST NOT PERFORMED 10/04/17 08:35 Blood Blood Culture - Final NO GROWTH AFTER 5 DAYS 10/04/17 08:35 Blood Gram Stain - Final TEST NOT PERFORMED 10/04/17 18:37 Urine,Clean Catch Urine Culture - Final Coagulase Neg Staphylococcus Most Recent Lab Values WBC 5.8 K/uL (4.8-10.8) 10/06/17 04:30 RBC 3.82 Mil/uL (3.80-5.20) 10/06/17 04:30 Hgb 11.7 g/dL (12.0-16.0) L 10/06/17 04:30 Hct 34.4 % (34.0-47.0) 10/06/17 04:30 MCV 90.3 fl (81.0-99.0) 10/06/17 04:30 MCH 30.7 pg (27.0-31.0) 10/06/17 04:30 MCHC 34.0 g/dL (33.0-37.0) 10/06/17 04:30 RDW 13.5 % (11.5-14.5) 10/06/17 04:30 Plt Count 182 K/uL (130-400) 10/06/17 04:30 PT 20.6 Seconds (9.8-13.1) H 10/10/17 07:25 INR 1.8 (0.9-1.2) H 10/10/17 07:25 Sodium 141 mmol/l (132-148) 10/07/17 04:45 Potassium 4.2 MMOL/L (3.6-5.0) 10/07/17 04:45 Chloride 98 mmol/L (98-107) 10/07/17 04:45 Carbon Dioxide 31 mmol/L (22-30) H 10/07/17 04:45 Anion Gap 16 (10-20) 10/07/17 04:45 BUN 41 mg/dl (7-17) H 10/07/17 04:45 Creatinine 1.4 mg/dl (0.7-1.2) H 10/07/17 04:45 Est GFR ( Amer) 43 10/07/17 04:45 Est GFR (Non-Af Amer) 36 10/07/17 04:45 POC Glucose (mg/dL) 170 mg/dL (65-110) H 10/10/17 16:16 Random Glucose 179 mg/dL (65-105) H 10/07/17 04:45 Calcium 9.3 mg/dL (8.4-10.2) 10/07/17 04:45 Attending/Attestation - Attestation I have personally seen and examined this patient.: Yes I have fully participated in the care of the patient.: Yes I have reviewed all pertinent clinical information, including history, physical exam and plan: Yes
[2017-10-10 16:28] VITALS: BP 120/81; PULSE 90; TEMP 98.2; O2SAT 99
== END 2017-10-10 18:33 | disposition home health service (06) | DRG 690 ==
LOC: H.TCU 19:27
PROVIDERS: ADMIT Family Medicine; ATTEND Family Medicine
PROC: 5A09457 Assistance with Respiratory Ventilation, 24-96 Consecutive Hours, Continuous Positive Airway Pressure (ICD-10-PCS; principal; 2017-09-29)
PROC: 3E0F7GC Introduction of Other Therapeutic Substance into Respiratory Tract, Via Natural or Artificial Opening (ICD-10-PCS; 2017-09-29)
PROC: F08Z4FZ Home Management Treatment using Assistive, Adaptive, Supportive or Protective Equipment (ICD-10-PCS; 2017-09-29)
PROC: F07M6FZ Therapeutic Exercise Treatment of Musculoskeletal System - Whole Body using Assistive, Adaptive, Supportive or Protective Equipment (ICD-10-PCS; 2017-09-29)
PROC: 3E03329 Introduction of Other Anti-infective into Peripheral Vein, Percutaneous Approach (ICD-10-PCS; 2017-09-29)
DX: N39.0 Urinary tract infection, site not specified (principal); E11.22 Type 2 diabetes mellitus with diabetic chronic kidney disease; I13.0 Hypertensive heart and chronic kidney disease with heart failure and stage 1 through stage 4 chronic kidney disease, or unspecified chronic kidney disease; E66.01 Morbid (severe) obesity due to excess calories; I07.1 Rheumatic tricuspid insufficiency; I48.91 Unspecified atrial fibrillation; I50.32 Chronic diastolic (congestive) heart failure; Z68.41 Body mass index [BMI] 40.0-44.9, adult; E78.00 Pure hypercholesterolemia, unspecified; G47.33 Obstructive sleep apnea (adult) (pediatric); I87.2 Venous insufficiency (chronic) (peripheral); J11.1 Influenza due to unidentified influenza virus with other respiratory manifestations; N18.3 Chronic kidney disease, stage 3 (moderate); R79.1 Abnormal coagulation profile; Z79.01 Long term (current) use of anticoagulants; Z79.4 Long term (current) use of insulin; Z91.81 History of falling; Z95.0 Presence of cardiac pacemaker; Z96.641 Presence of right artificial hip joint; Z96.652 Presence of left artificial knee joint